=== PATIENT | male | born 1930 | race Caucasian/White ===

== ENCOUNTER 2018-07-30 12:35 | Inpatient (IN) | payer MEDICARE ==
[2018-07-30] MEDS ORDERED: Sodium Chloride 0.9% 1,000 ML IV STA ×3 (13:04→17:06)
--- NOTE | 2018-07-30 13:07 | ED PDOC ---
HPI: Male Pain Time Seen by Provider: 07/30/18 12:51 Chief Complaint (Nursing): Male Genitourinary History Per: Family Onset/Duration Of Symptoms: Days (2) Current Symptoms Are (Timing): Still Present Quality Of Discomfort: Unable To Describe Associated Symptoms: Fever Alleviating Factors: None Additional Complaint(s): Gross hematuria x 2 days assoc with fever. Pt denies c/o. Hx obtained from family. Pt denies abd pain vomiting, diarrhea, dysuria or back pain. Past Medical History Vital Signs: Last Vital Signs Temp 100.3 F H 07/30/18 12:49 Pulse 112 H 07/30/18 12:49 Resp 18 07/30/18 12:49 BP 134/61 07/30/18 12:49 Pulse Ox 99 07/30/18 12:49 - Medical History PMH: CVA, HTN - Family History Family History: States: Unknown Family Hx - Immunization History Hx Tetanus Toxoid Vaccination: No Hx Influenza Vaccination: No Hx Pneumococcal Vaccination: No - Home Medications Home Medications: Ambulatory Orders Medication Instructions Recorded Amlodipine Besylate 5 mg PO DAILY 09/09/13 Aspirin EC 81 mg PO DAILY 09/09/13 Ciprofloxacin [Cipro] 500 mg PO BID #20 tab 09/09/13 Pradaxa 150 mg PO BID 09/09/13 Simvastatin 20 mg PO DAILY 09/09/13 Tamsulosin Hydrochloride 0.4 mg PO DAILY 09/09/13 - Allergies Allergies/Adverse Reactions: Allergies Allergy/AdvReac Type Severity Reaction Status Date / Time No Known Allergies Allergy Unverified 09/09/13 16:19 Review of Systems ROS Statement: Except As Marked, All Systems Reviewed And Found Negative Constitutional: Positive for: Fever Genitourinary Male: Positive for: Hematuria Physical Exam - Reviewed Nursing Documentation Reviewed: Yes Vital Signs Reviewed: Yes - Physical Exam Appears: Positive for: Non-toxic, No Acute Distress Head Exam: Positive for: ATRAUMATIC, NORMAL INSPECTION, NORMOCEPHALIC Skin: Positive for: Normal Color, Warm, DRY Eye Exam: Positive for: EOMI, Normal appearance, PERRL ENT: Positive for: Normal ENT Inspection Neck: Positive for: Normal, Painless ROM Cardiovascular/Chest: Positive for: Regular Rate, Rhythm Respiratory: Positive for: CNT, Normal Breath Sounds Gastrointestinal/Abdominal: Positive for: Normal Exam, Soft. Negative for: Tenderness Back: Positive for: Normal Inspection. Negative for: L CVA Tenderness, R CVA Tenderness Extremity: Positive for: Normal ROM Neurologic/Psych: Positive for: Alert, Oriented, Motor/Sensory Deficits (right sided weakness upper ext old) - Laboratory Results Result Diagrams: 07/30/18 13:15 07/30/18 13:15 - ECG O2 Sat by Pulse Oximetry: 99 Disposition - Clinical Impression Clinical Impression: Pneumonia, Sepsis, Hematuria - Patient ED Disposition Is Patient to be Admitted: Yes - Disposition Disposition Time: 15:00 Condition: FAIR Forms: [employer] ([place]) - Pt Status Changed To: Hospital Disposition Of: Inpatient - Admit Certification Admit to Inpatient:: After my assessment, the patient will require hospitalization for at least two midnights. This is because of the severity of symptoms shown, intensity of services needed, and/or the medical risk in this patient being treated as an outpatient. - POA Present On Arrival: None
[2018-07-30 14:08] LABS: VENOUS BLOOD GAS BASE EXCESS -0.8 mmol/L (0.0-2.0); VENOUS BLOOD GAS PCO2 41 mmHg (40-60); VENOUS BLOOD GAS PO2 15 mm/Hg (30-55); VENOUS BLOOD PH 7.38 (7.32-7.43)
[2018-07-30 14:09] LABS: BASO % 0.1 % (0.0-2.0); HEMOGLOBIN 13.3 g/dL (12.0-18.0); LYMPH # 1.1 K/uL (1.0-4.3); LYMPH % 5.4 % (20.0-40.0); MEAN CELL VOLUME 104.1 fl (80.0-94.0); MEAN CORPUSCULAR HEMOGLOBIN 34.9 pg (27.0-31.0); MEAN CORPUSCULAR HGB CONC 33.5 g/dL (33.0-37.0); MEAN PLATELET VOLUME 7.9 fl (7.2-11.7); MONO # 1.8 K/uL (0.0-0.8); MONO % 8.4 % (0.0-10.0); NEUT # 18.1 K/uL (1.8-7.0); NEUT % 86.1 % (50.0-75.0); NRBC % 0.1 % (0.0-0.0); PLATELET COUNT 276 K/uL (130-400); RBC 3.81 Mil/uL (4.40-5.90); RED CELL DISTRIBUTION WIDTH 13.7 % (11.5-14.5); WHITE BLOOD COUNT 21.1 K/uL (4.8-10.8)
[2018-07-30 14:10] LABS: GRANULAR CAST 28 /lpf (0-1); SQUAMOUS EPITHIAL 2 /hpf (0-5); URINE AMORPHOUS SEDIMENT FEW /ul (<OCC); URINE BILIRUBIN NEGATIVE (NEGATIVE); URINE BLOOD LARGE (NEGATIVE); URINE CLARITY CLOUDY (Clear); URINE GLUCOSE (UA) NEG (Normal); URINE LEUKOCYTE ESTERASE NEG Leu/uL (Negative); URINE PROTEIN 100 mg/dL (NEGATIVE)
[2018-07-30 14:12] LABS: URINE COLOR YELLOW (YELLOW)
--- NOTE | 2018-07-30 14:26 | US ---
Date of service: 07/30/2018 PROCEDURE: Right lower extremity venous duplex Doppler. HISTORY: swelling right leg COMPARISON: None available. TECHNIQUE: Common femoral, superficial femoral, popliteal and posterior tibial veins were evaluated. Flow was assessed with color Doppler, compressibility, assessment of phasic flow and augmentation response. FINDINGS: COMMON FEMORAL VEIN: Unremarkable. SUPERFICIAL FEMORAL VEIN: Unremarkable. POPLITEAL VEIN: Unremarkable. POSTERIOR TIBIAL VEIN: Unremarkable. OTHER FINDINGS: None. IMPRESSION: No evidence of deep venous thrombosis in the right lower extremity.
[2018-07-30 14:28] LABS: ALB/GLOB RATIO 0.9 (1.0-2.1); ALBUMIN 4.2 g/dL (3.5-5.0); CALCIUM 9.3 mg/dL (8.4-10.2)
[2018-07-30] MEDS ORDERED: Piperacillin/Tazobact 3.375 GM in Sodium Chloride 0.9% 100 ML IVPB STA (14:39)
[2018-07-30] MEDS ORDERED: Vancomycin 1 g Inj ONE (14:46)
[2018-07-30] MEDS ORDERED: Piperacillin/Tazobact 3.375 gm Inj IVPB ONE (14:46)
--- NOTE | 2018-07-30 14:54 | CT ---
Date of service: 07/30/2018 PROCEDURE: CT Abdomen and Pelvis without intravenous contrast HISTORY: r/o kidney stone COMPARISON: None. TECHNIQUE: Contiguous images were obtained from the domes of the diaphragms to the upper thighs without the administration of intravenous contrast. Oral contrast was not administered. Radiation dose: Total exam DLP = 548.7 mGy-cm. This CT exam was performed using one or more of the following dose reduction techniques: Automated exposure control, adjustment of the mA and/or kV according to patient size, and/or use of iterative reconstruction technique. FINDINGS: LOWER THORAX: Coronary arterial and valvular calcifications. No focal consolidation or pleural effusion. LIVER: Unremarkable. No gross lesion or ductal dilatation. GALLBLADDER AND BILE DUCTS: Unremarkable. PANCREAS: Unremarkable. No gross lesion or ductal dilatation. SPLEEN: Lateral splenic margin calcifications. ADRENALS: Left adrenal nodular thickening. KIDNEYS AND URETERS: Right lower pole 4.2 cm cyst. No hydronephrosis. No solid mass. VASCULATURE: Unremarkable. No aortic aneurysm. BOWEL: Extensive colonic diverticulosis. Nonobstructive loop of colon extending into a left inguinal hernia. No obstruction. No gross mural thickening. APPENDIX: Unremarkable. Normal appendix. PERITONEUM: Large nonobstructive bowel containing left inguinal hernia. Small right fat containing inguinal hernia. No free fluid. No free air. LYMPH NODES: Unremarkable. No enlarged lymph nodes. BLADDER: Unremarkable. REPRODUCTIVE: Prostatomegaly. BONES: No acute fracture. OTHER FINDINGS: None. IMPRESSION: No obstructive uropathy or evidence of recently passed genitourinary calculus. Large left nonobstructive bowel containing inguinal hernia. Additional findings as above.
--- NOTE | 2018-07-30 15:00 | RAD ---
Date of service: 07/30/2018 HISTORY: sepsis COMPARISON: Chest radiograph dated 11/25/2009 TECHNIQUE: Chest PA and lateral FINDINGS: LUNGS: Right midlung opacity extending from the right hilar region to the lateral thoracic margin. PLEURA: No significant pleural effusion identified. No pneumothorax apparent. CARDIOVASCULAR: Atherosclerotic aortic calcifications. Cardiomediastinal silhouette stably enlarged OSSEOUS STRUCTURES: Unchanged. VISUALIZED UPPER ABDOMEN: Normal. OTHER FINDINGS: None. IMPRESSION: Right midlung opacity extending from the right hilum to the lateral thoracic wall. CT scan of the chest can be obtained for further evaluation as clinically warranted.
[2018-07-30 15:25] LABS: EOSINOPHIL 2 % (0-7); LYMPHOCYTE 4 % (20-50); MONOCYTE 5 % (0-10); NEUTROPHIL 89 % (42-75); PLATELET ESTIMATE NORMAL (NORMAL); TOTAL CELLS COUNTED 100
[2018-07-30 16:35] LABS: VENOUS BLOOD GAS BASE EXCESS -4.1 mmol/L (0.0-2.0); VENOUS BLOOD GAS PCO2 44 mmHg (40-60); VENOUS BLOOD GAS PO2 16 mm/Hg (30-55); VENOUS BLOOD PH 7.31 (7.32-7.43)
[2018-07-30 17:07] LABS: VENOUS BLOOD GAS BASE EXCESS -1.8 mmol/L (0.0-2.0); VENOUS BLOOD GAS PCO2 42 mmHg (40-60); VENOUS BLOOD GAS PO2 15 mm/Hg (30-55); VENOUS BLOOD PH 7.36 (7.32-7.43)
[2018-07-30] MEDS: Sodium Chloride 0.9% 1,000 ML IV SCH (21:00)
[2018-07-30] MEDS ORDERED: Ergocalciferol 50,000 Intl Units Cap PO SCH (21:00)
[2018-07-30] MEDS: Pravastatin Sodium 20 MG TAB PO SCH (22:19)
[2018-07-31] MEDS: Sodium Chloride 0.9% 1,000 ML IV SCH (15:40)
[2018-07-31] MEDS: Pravastatin Sodium 20 MG TAB PO SCH (22:28)
--- NOTE | 2018-08-01 05:30 | HP ---
HISTORY OF PRESENT ILLNESS: This is an 88-year-old male who was known to me, presented to emergency room with symptoms of generalized weakness, decreased oral intake, cough, and high fever. The patient was evaluated in the emergency room, and T-max was 102.4. The patient was found to have also right middle lobe pneumonia/right middle lobe consolidation. The patient was admitted to telemetry floor with diagnosis of sepsis. The patient was started on both vancomycin and Zosyn also on admission. The patient has left-sided hemiplegia. He lives with a friend, but he is able to ambulate. Other review of system is negative. ALLERGIES: NO KNOWN ALLERGIES. MEDICATIONS: As per MAR were reviewed. PAST MEDICAL HISTORY: CVA, hypertension, paroxysmal atrial fibrillation, benign prostatic hypertrophy. SOCIAL HISTORY: No history of smoking, EtOH, or substance abuse. FAMILY HISTORY: Noncontributory. PHYSICAL EXAMINATION: GENERAL: The patient was not in any cardiopulmonary distress. VITAL SIGNS: Blood pressure 137/55, temperature 102.4, respiratory rate 18, and pulse 70. HEENT: Pupils equal, reactive to light. Normal-appearing mucosa of the conjunctivae, oropharynx, and nasal membrane mucosa. NECK: Supple. No JVD. CHEST AND LUNGS: Bilateral symmetrical expansion. Good air exchange. No rales. No rhonchi. CARDIOVASCULAR SYSTEM: PMI not localized. S1, S2. No additional sounds. ABDOMEN: Normoactive bowel sounds. No tenderness. No organomegaly. No masses. EXTREMITIES: No cyanosis, no clubbing, no edema. CENTRAL NERVOUS SYSTEM: Alert, awake, oriented x2. The patient has right-sided hemiparesis. ASSESSMENT: Pneumonia, cerebrovascular accident, hypertension, benign prostatic hypertrophy, paroxysmal atrial fibrillation. PLAN: We will continue vancomycin and Zosyn. We will add also azithromycin. We will check CBC and CMP tomorrow morning. Physical therapy. Itzel Hernández MD
[2018-08-01 05:44] LABS: HEMOGLOBIN 12.3 g/dL (12.0-18.0); MEAN CELL VOLUME 103.2 fl (80.0-94.0); MEAN CORPUSCULAR HEMOGLOBIN 35.5 pg (27.0-31.0); MEAN CORPUSCULAR HGB CONC 34.4 g/dL (33.0-37.0); RBC 3.47 Mil/uL (4.40-5.90); RED CELL DISTRIBUTION WIDTH 13.9 % (11.5-14.5); WHITE BLOOD COUNT 12.1 K/uL (4.8-10.8)
[2018-08-01 06:13] LABS: ALB/GLOB RATIO 0.8 (1.0-2.1); ALBUMIN 3.3 g/dL (3.5-5.0); ALT/SGPT 53 U/L (21-72); AST/SGOT 83 U/L (17-59); BLOOD UREA NITROGEN 14 mg/dl (9-20); CALCIUM 8.1 mg/dL (8.4-10.2); GFR NON-AFRICAN AMERICAN 52
[2018-08-01] MEDS: Potassium Chloride 20 mEq ER Tab PO ONE ×2 (09:08→09:54)
[2018-08-01] MEDS ORDERED: Potassium Chloride 20 mEq/15 ml LIQ UD PO ONE (11:44)
[2018-08-01] MEDS: Megestrol Acetate 40 mg/ml Cup PO SCH (16:53)
[2018-08-01] MEDS: Pravastatin Sodium 20 MG TAB PO SCH (21:35)
[2018-08-01] MEDS: Azithromycin 500 MG in Sodium Chloride 0.9% 250 ML IVPB SCH (22:37)
[2018-08-02 05:57] LABS: HEMOGLOBIN 12.9 g/dL (12.0-18.0); MEAN CELL VOLUME 103.8 fl (80.0-94.0); MEAN CORPUSCULAR HEMOGLOBIN 35.4 pg (27.0-31.0); MEAN CORPUSCULAR HGB CONC 34.1 g/dL (33.0-37.0); RBC 3.65 Mil/uL (4.40-5.90); RED CELL DISTRIBUTION WIDTH 13.8 % (11.5-14.5); WHITE BLOOD COUNT 11.6 K/uL (4.8-10.8)
[2018-08-02] MEDS ORDERED: Azithromycin 500 MG in Sodium Chloride 0.9% 250 ML IVPB SCH (09:00)
[2018-08-02] MEDS: Azithromycin 500 MG in Sodium Chloride 0.9% 250 ML IVPB SCH (09:07)
[2018-08-02] MEDS: Megestrol Acetate 40 mg/ml Cup PO SCH ×2 (09:24→16:31)
--- NOTE | 2018-08-02 09:29 | CP.PCM.PCO ---
Assessment/Plan - Assessment/Plan Assessment (Free Text): Patient seen and examined at bedside, vital signs stable, tmax 100.5 Labs reviewed, wbc trending now Appetite fair, eating 50% of breakfast. Patient will need 5-7 more days of iv abx for Pneumonia on cxr and ecoli in urine. Will refer pt to tcu /cesar for continuation of treatment, iv abx and pt. Discussed with PT and SW, pt agreeable. - Problems Patient Problems: Problem List (Active/Current) Problem Status Onset Code Hematuria Acute R31.9 Pneumonia Acute J18.9 Sepsis Acute A41.9
--- NOTE | 2018-08-02 12:27 | PN ---
DATE: 08/01/2018 SUBJECTIVE: He was not in any cardiopulmonary distress. PHYSICAL EXAMINATION: VITAL SIGNS: The patient still has fever with a T-max of 102.7, blood pressure 120/76, respiratory rate 18, and pulse 75. HEENT: Pupil equal and reactive to light. Normal-appearing mucosa of the conjunctivae, oropharynx, and nasal membrane mucosa. NECK: Supple. No JVD. No carotid bruit. No lymph node. No thyromegaly. CHEST AND LUNGS: Bilateral symmetrical expansion. Good air exchange. No rales. No rhonchi. CARDIOVASCULAR SYSTEM: PMI not localized. S1 and S2. No additional sounds. ABDOMEN: Normoactive bowel sounds. No tenderness. No organomegaly. No masses. EXTREMITIES: No cyanosis. No clubbing. No edema. CENTRAL NERVOUS SYSTEM: The patient is alert, awake, oriented x2 and the patient has right-sided weakness and hemiplegia. ASSESSMENT: 1. Pneumonia, sepsis secondary to pneumonia. 2. Status post cerebrovascular accident. 3. Paroxysmal atrial fibrillation. 4. Hypertension. PLAN: We will add azithromycin to the current treatment of vancomycin and Zosyn and physical therapy. Itzel Hernández MD
[2018-08-02] MEDS ORDERED: Potassium Chloride 20 mEq ER Tab PO ONE (18:10)
[2018-08-02] MEDS ORDERED: Albuterol-Ipratrop 3 mg / 0.5 (3 ml) UD INH PRN (18:12)
[2018-08-02] MEDS: Pravastatin Sodium 20 MG TAB PO SCH (21:05)
--- NOTE | 2018-08-02 22:43 | PN ---
DATE: 08/02/2018 SUBJECTIVE: The patient is seen today, 08/02/2018. He is not in any cardiopulmonary distress, but the patient still has cough and some wheezing. OBJECTIVE: VITAL SIGNS: Blood pressure is 142/57, temperature 98.8, respiratory rate 18, and pulse 62. HEENT: Pupils equal and reactive to light. Normal-appearing mucosa of the conjunctivae, oropharynx, and nasal membrane mucosa. NECK: Supple. No JVD. No carotid bruit. No lymph node. No thyromegaly. CHEST AND LUNGS: Bilateral symmetrical expansion. Bilateral rhonchi scattered all over lung taylor, and decreased air entry right lower lung taylor. CARDIOVASCULAR SYSTEM: PMI not localized. S1, S2. No additional sounds. ABDOMEN: Normoactive bowel sounds. No tenderness. No organomegaly. No masses. EXTREMITIES: No cyanosis, no clubbing, no edema. 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 ASSESSMENT: Pneumonia, cerebrovascular accident with right-sided hemiparesis, paroxysmal atrial fibrillation, benign prostate hypertrophy. PLAN: Continue current medications and physical therapy, and we will give patient DuoNeb by nebulizer as well as we will do a CAT scan of the chest without contrast. Itzel Hernánedz MD
[2018-08-03 06:07] LABS: BLOOD UREA NITROGEN 11 mg/dl (9-20); CALCIUM 8.2 mg/dL (8.4-10.2); GFR NON-AFRICAN AMERICAN > 60
[2018-08-03] MEDS: Megestrol Acetate 40 mg/ml Cup PO SCH ×2 (10:21→17:07)
[2018-08-03] MEDS: Azithromycin 500 MG in Sodium Chloride 0.9% 250 ML IVPB SCH (10:23)
--- NOTE | 2018-08-03 11:15 | CT ---
Date of service: 08/02/2018 PROCEDURE: CT Chest without contrast HISTORY: pneumonia COMPARISON: None available. TECHNIQUE: Contiguous axial images were obtained through the chest without intravenous contrast enhancement. Sagittal and coronal reconstructions were performed. Radiation dose (DLP): 571.4 mGy-cm. This CT exam was performed using one or more of the following dose reduction techniques: Automated exposure control, adjustment of the mA and/or kV according to patient size, and/or use of iterative reconstruction technique. FINDINGS: LUNGS: Large right upper lobe consolidation. Visualized airway clear MEDIASTINUM: Unremarkable thoracic aorta. No aneurysm. Normal sized heart. Main pulmonary artery unremarkable. No vascular congestion. No lymphadenopathy. PLEURA: Small right and trace left pleural effusions. No pneumothorax. BONES: No fracture. Exaggerated thoracic kyphosis. Flowing ossification along the anterior longitudinal ligament. No destructive lesion. UPPER ABDOMEN: Right upper pole 3.4 x 3.9 cm cyst. OTHER FINDINGS: None. IMPRESSION: Large right upper lobe consolidation. Small right and trace left pleural effusions.
[2018-08-03] MEDS ORDERED: Potassium Chloride 20 mEq ER Tab PO ONE (16:55)
[2018-08-03] MEDS: Pravastatin Sodium 20 MG TAB PO SCH (21:13)
[2018-08-04] MEDS: Megestrol Acetate 40 mg/ml Cup PO SCH ×2 (08:50→17:58)
[2018-08-04] MEDS: Pravastatin Sodium 20 MG TAB PO SCH (21:07)
[2018-08-05] MEDS: Megestrol Acetate 40 mg/ml Cup PO SCH ×2 (08:58→16:43)
--- NOTE | 2018-08-05 11:56 | CP.PCM.CON ---
History of Present Illness - History of Present Illness History of Present Illness: Infectious Disease Consultation Note- asked to see this patient for pneumonia and help with antibiotic management. HPI- History obtained from the medical chart as patient is not good historian. Patient is a 88 year old male with pmh of CVA, BPH, paroxysmal A.Fib,who was admitted few days ago with weakness and poor oral intake and was found to have high fever on admission along with RML infiltrate on cxr and was started on IV zosyn and vanco as per the primary doc. I'm asked to evaluate because he was noted to have high wbc along with positive urine cx in addition and to help with antibiotic management. Review of Systems - Review of Systems Review of Systems: ROS- deniesa ny fever or chills, had some cough less now, denies any sob, denies arpit ehst pain, denies any diarrhea, denies any dysurea Past Patient History - Past Medical History & Family History Past Medical History?: Yes - Past Social History Smoking Status: Never Smoked - CARDIAC Hx Cardiac Disorders: Yes Hx Atrial Fibrillation: Yes Hx Cardia Arrhythmia: Yes Hx Hypercholesterolemia: Yes Hx Hypertension: Yes Hx Peripheral Edema: Yes (right leg swelling) - PULMONARY Hx Respiratory Disorders: No - NEUROLOGICAL Hx Neurological Disorder: Yes HX Cerebrovascular Accident: Yes (right sided weakness) - RENAL Hx Chronic Kidney Disease: No - ENDOCRINE/METABOLIC Hx Endocrine Disorders: No - HEMATOLOGICAL/ONCOLOGICAL Hx Blood Disorders: No - INTEGUMENTARY Other/Comment: dmitry legs dry scaly right leg swelling - MUSCULOSKELETAL/RHEUMATOLOGICAL Hx Falls: No Hx Unsteady Gait: Yes Other/Comment: cane at home - GASTROINTESTINAL Hx Gastrointestinal Disorders: No - GENITOURINARY/GYNECOLOGICAL Hx Prostate Problems: Yes - PSYCHIATRIC Hx Substance Use: No - SURGICAL HISTORY Hx Cataract Extraction: Yes (dmitry) - ANESTHESIA Hx Anesthesia: Yes Hx Anesthesia Reactions: No Hx Malignant Hyperthermia: No Meds Allergies/Adverse Reactions: Allergies Allergy/AdvReac Type Severity Reaction Status Date / Time No Known Allergies Allergy Unverified 09/09/13 16:19 - Medications Medications: Current Medications Acetaminophen (Tylenol 325mg Tab) 650 mg PO Q6 PRN PRN Reason: Fever >100.4 F Last Admin: 08/02/18 05:11 Dose: 650 mg Albuterol/Ipratropium (Duoneb 3 Mg/0.5 Mg (3 Ml) Ud) 3 ml INH RQ6 PRN PRN Reason: Shortness of Breath Amlodipine Besylate (Norvasc) 5 mg PO Q12 [facility] Last Admin: 08/05/18 08:57 Dose: 5 mg Aspirin (Ecotrin) 81 mg PO DAILY [facility] Last Admin: 08/05/18 08:56 Dose: 81 mg Dabigatran (Pradaxa) 150 mg PO Q12 [facility]; Protocol Last Admin: 08/05/18 08:57 Dose: 150 mg Ergocalciferol (Drisdol 50,000 Intl Units Cap) 1 cap PO MO [facility] Last Admin: 07/30/18 22:18 Dose: 1 cap Escitalopram Oxalate (Lexapro) 10 mg PO HS [facility] Last Admin: 08/04/18 21:06 Dose: 10 mg Piperacillin Sod/Tazobactam (Sod 2.25 gm/ Sodium Chloride) 100 mls @ 100 mls/hr IVPB Q6 [facility]; Protocol Last Admin: 08/05/18 09:05 Dose: 100 mls/hr Losartan Potassium (Cozaar) 100 mg PO DAILY [facility] Last Admin: 08/05/18 08:55 Dose: 100 mg Megestrol Acetate (Megace) 400 mg PO BID [facility] Last Admin: 08/05/18 08:58 Dose: 400 mg Pravastatin Sodium (Pravachol) 20 mg PO HS [facility] Last Admin: 08/04/18 21:07 Dose: 20 mg Tamsulosin HCl (Flomax) 0.4 mg PO DAILY [facility] Last Admin: 08/05/18 08:57 Dose: 0.4 mg Physical Exam - Constitutional Appears: No Acute Distress - Head Exam Head Exam: ATRAUMATIC - Eye Exam Eye Exam: EOMI - ENT Exam ENT Exam: Normal Oropharynx - Neck Exam Neck exam: Positive for: Full Rom - Respiratory Exam Respiratory Exam: NORMAL BREATHING PATTERN Additional comments: no crackles decreased breath sounds at right lower lung region no wheezing - Cardiovascular Exam Cardiovascular Exam: RRR, +S1, +S2 - GI/Abdominal Exam GI & Abdominal Exam: Normal Bowel Sounds, Soft Additional comments: NT, ND - Extremities Exam Extremities exam: Positive for: normal inspection - Neurological Exam Neurological exam: Alert, Oriented x3 Additional comments: sided weakness Results - Vital Signs Recent Vital Signs: Last Vital Signs Temp 98.1 F 08/05/18 08:17 Pulse 73 08/05/18 09:00 Resp 18 08/05/18 08:17 BP 148/66 08/05/18 08:57 Pulse Ox 99 08/05/18 08:17 - Labs Result Diagrams: 08/02/18 04:50 08/03/18 04:20 Labs: Laboratory Results - last 72 hr 08/02/18 08/03/18 14:20 04:20 Sodium 137 Potassium 3.4 L 3.5 L Chloride 108 H Carbon Dioxide 23 Anion Gap 10 BUN 11 Creatinine 0.9 Est GFR ( Amer) > 60 Est GFR (Non-Af Amer) > 60 Random Glucose 104 Calcium 8.2 L Microbiology 07/30/18 13:35 Blood-Venous Blood Culture - Final NO GROWTH AFTER 5 DAYS 07/30/18 13:35 Blood-Venous Gram Stain - Final TEST NOT PERFORMED 07/30/18 13:15 Blood-Venous Blood Culture - Final NO GROWTH AFTER 5 DAYS 07/30/18 13:15 Blood-Venous Gram Stain - Final TEST NOT PERFORMED 07/30/18 02:52 Urine,Random Urine Culture - Final Escherichia Coli Assessment & Plan (1) Pneumonia Status: Acute (2) Bacteriuria Status: Acute - Assessment and Plan (Free Text) Assessment: A/P- 88 year old male admitted with fever and found to have large right upper lobe consolidation on his admission chect CT .. he also has e.coli in urine cx . he has been on zosyn and vanco as per primary doc. UA- negative Urine cx- e.coli sens to zyn but not good MAX blood cx- neg x 2 leukocytosis has improved. plan- advise to start pt. on meropenem since it has broader coverage and better MAX of the e.coli in urine cx. d/c zosyn. can continue with empiric vanco. keep trough between 10-15. monitor aspiration precautions. check another wbc and CXR. check sputum cx. check another UA and urine cx. all labs and imaging reviewed. Thank you for allowing me to take part in the care of this patient.
--- NOTE | 2018-08-05 13:08 | CP.PCM.PN ---
Subjective - Date & Time of Evaluation Date of Evaluation: 08/05/18 Time of Evaluation: 11:10 - Subjective Subjective: Patient seen and examined. Denied SOB or any other complaint Objective - Vital Signs/Intake and Output Vital Signs (last 24 hours): Temp Pulse Resp BP Pulse Ox 98.6 F 68 20 130/62 100 08/05/18 12:33 08/05/18 12:33 08/05/18 12:33 08/05/18 12:33 08/05/18 12:33 - Medications Medications: Current Medications Acetaminophen (Tylenol 325mg Tab) 650 mg PO Q6 PRN PRN Reason: Fever >100.4 F Last Admin: 08/02/18 05:11 Dose: 650 mg Albuterol/Ipratropium (Duoneb 3 Mg/0.5 Mg (3 Ml) Ud) 3 ml INH RQ6 PRN PRN Reason: Shortness of Breath Amlodipine Besylate (Norvasc) 5 mg PO Q12 [facility] Last Admin: 08/05/18 08:57 Dose: 5 mg Aspirin (Ecotrin) 81 mg PO DAILY [facility] Last Admin: 08/05/18 08:56 Dose: 81 mg Dabigatran (Pradaxa) 150 mg PO Q12 [facility]; Protocol Last Admin: 08/05/18 08:57 Dose: 150 mg Ergocalciferol (Drisdol 50,000 Intl Units Cap) 1 cap PO MO [facility] Last Admin: 07/30/18 22:18 Dose: 1 cap Escitalopram Oxalate (Lexapro) 10 mg PO HS [facility] Last Admin: 08/04/18 21:06 Dose: 10 mg Piperacillin Sod/Tazobactam (Sod 2.25 gm/ Sodium Chloride) 100 mls @ 100 mls/hr IVPB Q6 [facility]; Protocol Last Admin: 08/05/18 09:05 Dose: 100 mls/hr Losartan Potassium (Cozaar) 100 mg PO DAILY [facility] Last Admin: 08/05/18 08:55 Dose: 100 mg Megestrol Acetate (Megace) 400 mg PO BID [facility] Last Admin: 08/05/18 08:58 Dose: 400 mg Pravastatin Sodium (Pravachol) 20 mg PO HS [facility] Last Admin: 08/04/18 21:07 Dose: 20 mg Tamsulosin HCl (Flomax) 0.4 mg PO DAILY [facility] Last Admin: 08/05/18 08:57 Dose: 0.4 mg - Labs Labs: 08/02/18 04:50 08/03/18 04:20 - Constitutional Appears: No Acute Distress - Head Exam Head Exam: ATRAUMATIC - Eye Exam Eye Exam: absent: Scleral icterus - ENT Exam ENT Exam: Mucous Membranes Moist - Neck Exam Neck Exam: absent: Meningismus - Respiratory Exam Respiratory Exam: absent: Rales, Rhonchi, Wheezes, Respiratory Distress - Cardiovascular Exam Cardiovascular Exam: REGULAR RHYTHM, +S1, +S2 - GI/Abdominal Exam GI & Abdominal Exam: Soft. absent: Tenderness - Rectal Exam Rectal Exam: Deferred - Neurological Exam Neurological Exam: Alert, Oriented x3 - Psychiatric Exam Psychiatric exam: Normal Affect - Skin Skin Exam: Dry, Intact Assessment and Plan - Assessment and Plan (Free Text) Assessment: 88 yo male with history of HTN, Paroxysmal AFib and CVA presented initially with hematuria and fever. Work ups showed UTI and RUL pneumonia. 1. UTI urine culture grew E coli continue Zosyn 2. Right Upper Lobe Pneumonia asymptomatic continue Zosyn ID consult with Dr Schmidt 3. HTN BP stable continue Amlodipine and Losartan 4. Afib presently in sinus with controlled rate continue Pradaxa
[2018-08-05] MEDS: Meropenem 500 MG in Sodium Chloride 0.9% 100 ML IVPB SCH (16:41)
[2018-08-05] MEDS: Pravastatin Sodium 20 MG TAB PO SCH (21:02)
[2018-08-06] MEDS: Meropenem 500 MG in Sodium Chloride 0.9% 100 ML IVPB SCH ×3 (00:03→17:23)
[2018-08-06] MEDS: Megestrol Acetate 40 mg/ml Cup PO SCH ×2 (09:23→17:23)
--- NOTE | 2018-08-06 13:49 | CP.PCM.PCO ---
Assessment & Plan - Assessment and Plan (Free Text) Assessment: patient will require 7 more day of IV abx Merrem 500mg iv q8 and Vancomycin 750 mg q12 x 1 week from admission to TCU pt. is agreeable to TCU keep vanco trough between 10-15. monitor aspiration precautions. f/u cbc, cmp cont. pt/ot
[2018-08-06 20:01] VITALS: BP 130/62; PULSE 70; RESP 20; TEMP 98; O2SAT 99
--- NOTE | 2018-08-07 02:51 | PN ---
DATE: 08/03/2018 SUBJECTIVE: The patient was seen on 08/03/2018. He was not in any cardiopulmonary distress, but he still has cough and right-sided rales in right and middle lung taylor. PHYSICAL EXAMINATION: VITAL SIGNS: Blood pressure 130/70, temperature 98.2, respiratory rate 18, and pulse 72. HEENT: Pupils equal and reactive to light. Normal-appearing mucosa of the conjunctivae, oropharynx, and nasal membrane mucosa. NECK: Supple. No JVD. No carotid bruit. No lymph nodes. No thyromegaly. CHEST AND LUNGS: Bilateral symmetrical expansion. Good air exchange. There are rales and rhonchi on the right side. CARDIOVASCULAR SYSTEM: PMI not localized. S1 and S2. No additional sounds. ABDOMEN: Normoactive bowel sounds. No tenderness. No organomegaly. No masses. EXTREMITIES: No cyanosis. No clubbing. No edema. CENTRAL NERVOUS SYSTEM: Alert, awake, oriented x2. There is a neurological deficit in the form of right-sided hemiplegia. ASSESSMENT AND PLAN: Sepsis, pneumonia, hypertension, paroxysmal atrial fibrillation. We will follow up the CAT scan, chest results that were done. Continue current medications. Itzel Hernández MD
--- NOTE | 2018-08-07 21:11 | DS ---
REASON FOR ADMISSION: This is an 88-year-old male with a history of multiple medical problems including CVA with right-sided hemiplegia, was admitted for sepsis secondary to pneumonia. COURSE OF HOSPITALIZATION: The patient was admitted to telemetry floor due to sepsis. The patient was started on IV fluids as well as IV antibiotics. The patient had an ID consult done by Dr. Schmidt. The patient remained with cough and a CAT scan of the chest showed a large consolidation in the right upper lobe. The patient was discharged to transitional care unit for further management with extended IV antibiotic therapy. FINAL DIAGNOSES: Sepsis, pneumonia, cerebrovascular accident with right-sided hemiplegia, hypertension, and paroxysmal atrial fibrillation. Itzel Hernández MD
== END 2018-08-06 20:30 | DRG 871 ==
LOC: H.ER 12:35 → H.ERHOLD 14:57 → H.TEL 17:37
PROVIDERS: ADMIT Internal Medicine; ATTEND Internal Medicine
DX: A41.9 Sepsis, unspecified organism (principal); J18.9 Pneumonia, unspecified organism; N39.0 Urinary tract infection, site not specified; I69.351 Hemiplegia and hemiparesis following cerebral infarction affecting right dominant side; I48.0 Paroxysmal atrial fibrillation; B96.20 Unspecified Escherichia coli [E. coli] as the cause of diseases classified elsewhere; R31.0 Gross hematuria; I10 Essential (primary) hypertension; N40.0 Benign prostatic hyperplasia without lower urinary tract symptoms; E78.00 Pure hypercholesterolemia, unspecified

== ENCOUNTER 2018-08-06 16:56 | Inpatient (IN) | payer MEDICARE ==
[2018-08-06] MEDS ORDERED: Albuterol-Ipratrop 3 mg / 0.5 (3 ml) UD INH PRN (22:09)
[2018-08-06] MEDS: Pravastatin Sodium 20 MG TAB PO SCH (22:44)
[2018-08-07] MEDS ORDERED: [UNRECOGNIZED DRUG - OTHER] IV SCH
[2018-08-07] MEDS ORDERED: SOD CHLORIDE IV SCH
[2018-08-07] MEDS ORDERED: VANCOMYCIN IV SCH
[2018-08-07] MEDS ORDERED: Patient's Own Med (Meropenem 500 Mg In Ns [Merrem Iv 500 Mg/Ns 50 Ml] 500 MG) IV SCH (01:00)
[2018-08-07] MEDS: Meropenem 500 MG in Sodium Chloride 0.9% 100 ML IVPB SCH ×3 (02:00→16:44)
[2018-08-07] MEDS: Megestrol Acetate 40 mg/ml Cup PO SCH ×2 (08:06→16:40)
[2018-08-07] MEDS: Pravastatin Sodium 20 MG TAB PO SCH (21:02)
[2018-08-08] MEDS: Meropenem 500 MG in Sodium Chloride 0.9% 100 ML IVPB SCH ×3 (00:59→17:36)
--- NOTE | 2018-08-08 02:03 | HP ---
HISTORY OF PRESENT ILLNESS: This is an 88-year-old male with history of multiple medical problems who was in acute care floor for pneumonia. The patient was on antibiotics. The patient has history of CVA with right-sided weakness. The patient was started on physical therapy and he was discharged to Transitional Care Unit for physical therapy, deconditioning, and to continue his IV antibiotic therapy. PAST MEDICAL HISTORY: CVA with right-sided weakness, hypertension, atrial fibrillation, and pneumonia. FAMILY HISTORY: Noncontributory. SOCIAL HISTORY: No history of smoking, EtOH, or substance abuse. REVIEW OF SYSTEMS: Other review of system is negative. ALLERGIES: NO KNOWN ALLERGY. MEDICATIONS: Were reviewed and ordered as per [facility]. PHYSICAL EXAMINATION: GENERAL: The patient is in bed, not in any cardiopulmonary distress. VITAL SIGNS: Blood pressure 137/80, temperature 98.2, respiratory rate 18, and pulse 72. HEENT: Pupils equal, reactive to light. Normal-appearing mucosa of the conjunctivae, oropharynx and nasal membrane mucosa. NECK: Supple. No JVD. No carotid bruit. No lymph node. No thyromegaly. CARDIOPULMONARY: Cardiovascular system, PMI not localized. S1, S2; irregularly irregular. CHEST AND LUNGS: Bilateral symmetrical expansion. Positive rales in the left upper and the right upper lobes, but there is no bronchial breathing. ABDOMEN: Normoactive bowel sounds. No tenderness. No organomegaly. No masses. EXTREMITIES: No cyanosis, no clubbing, no edema. ENVIRONMENTAL ENGINEER: Alert, awake, oriented x2. There is right-sided hemiparesis. ASSESSMENT: 1. Cerebrovascular accident with right-sided hemiparesis. 2. Atrial fibrillation with controlled ventricular rate. 3. Pneumonia. 4. Hypertension. PLAN: Continue current IV antibiotics, physical therapy, occupational therapy. Resume patient's home medications. Itzel Hernández MD
[2018-08-08] MEDS: Megestrol Acetate 40 mg/ml Cup PO SCH ×2 (08:48→17:37)
--- NOTE | 2018-08-08 09:42 | CP.PCM.CON ---
History of Present Illness - History of Present Illness History of Present Illness: Infectious Disease Consultation Note- Consult requested by . HPI- Patient known to me from his admission in tele floor few days ago. Patient is a 88 year old male with PMH of CVA, BPH, paroxysmal a.fib,who was initially admitted for weakness and poor oral intake and fever and was found to have RMl infiltrate and and e.coli in urine cx. pt. was started on Iv zosyn and vanco and has responded very well to this and ws d/c to TCU for physical therapy and to complete her antibiotic regimen. Pt. currently states he feels well and denies any complaints. Review of Systems - Review of Systems Review of Systems: ROS- denies any fever or chills, denies any VALVERDE, denies any cough, denies any sob, denies any chest pain, denies any abd. pain, denies any nausea or vomiting, denies any diarrhea, denies any dysurea. Past Patient History - Past Medical History & Family History Past Medical History?: Yes - Past Social History Smoking Status: Never Smoked Alcohol: None Drugs: Denies - CARDIAC Hx Cardiac Disorders: Yes Hx Atrial Fibrillation: Yes Hx Cardia Arrhythmia: Yes Hx Hypercholesterolemia: Yes Hx Hypertension: Yes - PULMONARY Hx Respiratory Disorders: No - NEUROLOGICAL Hx Neurological Disorder: Yes HX Cerebrovascular Accident: Yes (right sided weakness) - HEENT Hx Cataracts: Yes - RENAL Hx Chronic Kidney Disease: No - ENDOCRINE/METABOLIC Hx Endocrine Disorders: No - HEMATOLOGICAL/ONCOLOGICAL Hx Blood Disorders: No - INTEGUMENTARY Other/Comment: dmitry legs dry scaly right leg swelling - MUSCULOSKELETAL/RHEUMATOLOGICAL Hx Falls: No Hx Unsteady Gait: Yes Other/Comment: cane at home - GASTROINTESTINAL Hx Gastrointestinal Disorders: No - GENITOURINARY/GYNECOLOGICAL Hx Prostate Problems: Yes - PSYCHIATRIC Hx Substance Use: No - SURGICAL HISTORY Hx Cataract Extraction: Yes (dmitry) - ANESTHESIA Hx Anesthesia: Yes Hx Anesthesia Reactions: No Hx Malignant Hyperthermia: No Meds Allergies/Adverse Reactions: Allergies Allergy/AdvReac Type Severity Reaction Status Date / Time No Known Allergies Allergy Unverified 09/09/13 16:19 - Medications Medications: Current Medications Acetaminophen (Tylenol 325mg Tab) 650 mg PO Q6 PRN PRN Reason: Fever >100.4 F Albuterol/Ipratropium (Duoneb 3 Mg/0.5 Mg (3 Ml) Ud) 3 ml INH RQ6 PRN PRN Reason: Shortness of Breath Amlodipine Besylate (Norvasc) 5 mg PO Q12 [facility] Last Admin: 08/08/18 08:49 Dose: 5 mg Aspirin (Ecotrin) 81 mg PO DAILY [facility] Last Admin: 08/08/18 08:56 Dose: 81 mg Dabigatran (Pradaxa) 150 mg PO Q12 [facility]; Protocol Last Admin: 08/08/18 08:48 Dose: 150 mg Escitalopram Oxalate (Lexapro) 10 mg PO [facility] Last Admin: 08/07/18 21:01 Dose: 10 mg Meropenem 500 mg/ Sodium (Chloride) 100 mls @ 100 mls/hr IVPB Q8 [facility] Last Admin: 08/08/18 08:54 Dose: 100 mls/hr Vancomycin HCl 750 mg/ Sodium (Chloride) 250 mls @ 250 mls/hr IVPB Q12@0000,1200 [facility] Last Admin: 08/07/18 23:02 Dose: 250 mls/hr Losartan Potassium (Cozaar) 100 mg PO DAILY [facility] Last Admin: 08/08/18 08:58 Dose: 100 mg Megestrol Acetate (Megace) 400 mg PO BID [facility] Last Admin: 08/08/18 08:48 Dose: 400 mg Pravastatin Sodium (Pravachol) 20 mg PO [facility] Last Admin: 08/07/18 21:02 Dose: 20 mg Tamsulosin HCl (Flomax) 0.4 mg PO DAILY [facility] Last Admin: 08/08/18 08:57 Dose: 0.4 mg Physical Exam - Constitutional Appears: Non-toxic, No Acute Distress - Head Exam Head Exam: ATRAUMATIC - Eye Exam Eye Exam: EOMI, PERRL - ENT Exam ENT Exam: Normal Oropharynx - Neck Exam Neck exam: Positive for: Full Rom - Respiratory Exam Respiratory Exam: NORMAL BREATHING PATTERN Additional comments: good breath sounds b/l no wheezing - Cardiovascular Exam Cardiovascular Exam: REGULAR RHYTHM, +S1, +S2 - GI/Abdominal Exam GI & Abdominal Exam: Normal Bowel Sounds, Soft Additional comments: NT, ND no CVA tenderness b/l - Extremities Exam Extremities exam: Positive for: normal inspection - Neurological Exam Neurological exam: Alert, Oriented x3 Results - Vital Signs Recent Vital Signs: Last Vital Signs Temp 97.9 F 08/08/18 08:09 Pulse 80 08/08/18 08:58 Resp 18 08/08/18 08:09 BP 128/56 L 08/08/18 08:58 Pulse Ox 98 08/08/18 08:09 - Labs Labs: Microbiology 07/30/18 13:35 Blood-Venous Blood Culture - Final 07/30/18 13:35 Blood-Venous Gram Stain - Final NO GROWTH AFTER 5 DAYS TEST NOT PERFORMED 07/30/18 13:15 Blood-Venous Blood Culture - Final 07/30/18 13:15 Blood-Venous Gram Stain - Final NO GROWTH AFTER 5 DAYS TEST NOT PERFORMED 07/30/18 02:52 Urine,Random Urine Culture - Final Escherichia Coli Assessment & Plan (1) Bacteriuria Status: Acute (2) Pneumonia Status: Acute - Assessment and Plan (Free Text) Assessment: A/P- 88 year old male was admitted with fever and found to have large right upper lobe consolidation on his admission chect CT and e.coli in urine cx. was improved and d/c to TCU for PT and completion of his antibiotic therpay as per pcp. clinically much improved. has remained afebrile UA- negative Urine cx- e.coli sens to zyn but not good MAX blood cx- neg x 2 leukocytosis almost resolved. plan- has been on Iv meropnem for pneumonia and e.coli in urine cx for past 4 days. advise 1 more day of Iv meropenem. d/c IV vancomycin at this time. monitor aspiration precautions. check another wbc and CXR. Thank you for allowing me to take part in the care of this patient.
[2018-08-08 13:01] VITALS: BMI 24.9
[2018-08-08] MEDS: Pravastatin Sodium 20 MG TAB PO SCH (21:07)
[2018-08-09] MEDS: Meropenem 500 MG in Sodium Chloride 0.9% 100 ML IVPB SCH ×3 (00:31→17:26)
[2018-08-09 06:26] LABS: BASO % 0.2 % (0.0-2.0); EOS # 0.1 K/uL (0.0-0.7); EOS % 0.8 % (0.0-4.0); HEMOGLOBIN 11.5 g/dL (12.0-18.0); LYMPH # 1.6 K/uL (1.0-4.3); LYMPH % 13.4 % (20.0-40.0); MEAN CELL VOLUME 102.8 fl (80.0-94.0); MEAN CORPUSCULAR HEMOGLOBIN 34.5 pg (27.0-31.0); MEAN CORPUSCULAR HGB CONC 33.5 g/dL (33.0-37.0); MEAN PLATELET VOLUME 6.2 fl (7.2-11.7); MONO # 0.8 K/uL (0.0-0.8); MONO % 6.9 % (0.0-10.0); NEUT # 9.5 K/uL (1.8-7.0); NEUT % 78.7 % (50.0-75.0); RBC 3.34 Mil/uL (4.40-5.90); WHITE BLOOD COUNT 12.1 K/uL (4.8-10.8)
--- NOTE | 2018-08-09 08:28 | PN ---
DATE: 08/08/2018 DAILY PROGRESS NOTE SUBJECTIVE: The patient is seen today, 08/08/2018. He is not in any cardiopulmonary distress. PHYSICAL EXAMINATION: VITAL SIGNS: Blood pressure 128/62, temperature 97, respiratory rate 20, and pulse 57. HEENT: Pupils are reactive to light. Normal-appearing mucosa of the conjunctivae, oropharynx, and nasal membrane mucosa. NECK: Supple. No JVD. No carotid bruit. No lymph node. No thyromegaly. CHEST AND LUNGS: Bilateral symmetrical expansion. Good air exchange. No rales. No rhonchi. CARDIOVASCULAR SYSTEM: PMI not localized. S1, S2. No additional sounds. ABDOMEN: Normoactive bowel sounds. No tenderness. No organomegaly. No masses. EXTREMITIES: No cyanosis, no clubbing, no edema. CENTRAL NERVOUS SYSTEM: Alert, awake, oriented x2. Right-sided hemiparesis. ASSESSMENT: 1. Pneumonia. 2. Atrial fibrillation. 3. Cerebrovascular accident with right-sided hemiparesis. 4. Symptomatic peripheral vascular disease. Arterial Doppler showed occlusive disease on the left lower extremity. PLAN: We will do vascular surgery consult. Continue current medications. The arterial Doppler shows left lower extremity occlusive disease affecting mid and distal left superficial femoral artery, flow is identified in the left posterior tibial and anterior tibial arteries as well as dorsalis pedis artery. Plan vascular surgery consult. Continue current medications including the anticoagulant. Continue physical therapy and occupational therapy. Itzel Hernández MD
[2018-08-09] MEDS: Megestrol Acetate 40 mg/ml Cup PO SCH ×2 (09:14→17:26)
--- NOTE | 2018-08-09 09:59 | RAD ---
Date of service: 08/09/2018 PROCEDURE: CHEST RADIOGRAPH, 1 VIEW HISTORY: follow up of his pneumonia COMPARISON: None available. FINDINGS: LUNGS: Partial clearing right upper lobe pneumonia. Follow-up to clearing advised. No new infiltrate elsewhere. PLEURA: No pneumothorax or pleural fluid seen. CARDIOVASCULAR: Normal. OSSEOUS STRUCTURES: No significant abnormalities. VISUALIZED UPPER ABDOMEN: Normal. OTHER FINDINGS: None. IMPRESSION: Incomplete clearing right upper lobe pneumonia. Follow-up to clearing advised.
--- NOTE | 2018-08-09 10:22 | CP.PCM.PN ---
Subjective - Date & Time of Evaluation Date of Evaluation: 08/09/18 Time of Evaluation: 10:22 Objective - Vital Signs/Intake and Output Vital Signs (last 24 hours): Temp Pulse Resp BP Pulse Ox 97.0 F L 61 20 130/48 L 99 08/08/18 21:02 08/09/18 09:15 08/08/18 21:02 08/09/18 09:15 08/08/18 21:02 - Medications Medications: Current Medications Acetaminophen (Tylenol 325mg Tab) 650 mg PO Q6 PRN PRN Reason: Fever >100.4 F Albuterol/Ipratropium (Duoneb 3 Mg/0.5 Mg (3 Ml) Ud) 3 ml INH RQ6 PRN PRN Reason: Shortness of Breath Amlodipine Besylate (Norvasc) 5 mg PO Q12 [facility] Last Admin: 08/09/18 09:15 Dose: 5 mg Aspirin (Ecotrin) 81 mg PO DAILY [facility] Last Admin: 08/09/18 09:16 Dose: 81 mg Dabigatran (Pradaxa) 150 mg PO Q12 [facility]; Protocol Last Admin: 08/09/18 09:14 Dose: 150 mg Escitalopram Oxalate (Lexapro) 10 mg PO HS [facility] Last Admin: 08/08/18 21:06 Dose: 10 mg Meropenem 500 mg/ Sodium (Chloride) 100 mls @ 100 mls/hr IVPB Q8 [facility] Last Admin: 08/09/18 09:48 Dose: 100 mls/hr Losartan Potassium (Cozaar) 100 mg PO DAILY [facility] Last Admin: 08/09/18 09:15 Dose: 100 mg Megestrol Acetate (Megace) 400 mg PO BID [facility] Last Admin: 08/09/18 09:14 Dose: 400 mg Pravastatin Sodium (Pravachol) 20 mg PO HS [facility] Last Admin: 08/08/18 21:07 Dose: 20 mg Tamsulosin HCl (Flomax) 0.4 mg PO DAILY [facility] Last Admin: 08/09/18 09:16 Dose: 0.4 mg - Labs Labs: 08/09/18 06:00
--- NOTE | 2018-08-09 10:24 | CP.PCM.CON ---
History of Present Illness - History of Present Illness History of Present Illness: This 88 year old male patient presented to the emergency department with fever and hematuria, found to have E coli UTI/sepsis. Coincidental finding on CXR of a right mid-lung infiltrate, CT scan verifies a RUL consolidation with air-br onchograms. He was placed on antibiotics and improved allowing discharge to transitional care. The patient is pleasant and cooperative during the examination but answers 'no' to every question resulting in the need to obtain current history from the medical record. Past Patient History - Past Medical History & Family History Past Medical History?: Yes - Past Social History Smoking Status: Never Smoked Alcohol: None Drugs: Denies - CARDIAC Hx Cardiac Disorders: Yes Hx Atrial Fibrillation: Yes Hx Cardia Arrhythmia: Yes Hx Hypercholesterolemia: Yes Hx Hypertension: Yes - PULMONARY Hx Respiratory Disorders: No - NEUROLOGICAL Hx Neurological Disorder: Yes HX Cerebrovascular Accident: Yes (right sided weakness) - HEENT Hx Cataracts: Yes - RENAL Hx Chronic Kidney Disease: No - ENDOCRINE/METABOLIC Hx Endocrine Disorders: No - HEMATOLOGICAL/ONCOLOGICAL Hx Blood Disorders: No - INTEGUMENTARY Other/Comment: dmitry legs dry scaly right leg swelling - MUSCULOSKELETAL/RHEUMATOLOGICAL Hx Falls: No Hx Unsteady Gait: Yes Other/Comment: cane at home - GASTROINTESTINAL Hx Gastrointestinal Disorders: No - GENITOURINARY/GYNECOLOGICAL Hx Prostate Problems: Yes - PSYCHIATRIC Hx Substance Use: No - SURGICAL HISTORY Hx Cataract Extraction: Yes (dmitry) - ANESTHESIA Hx Anesthesia: Yes Hx Anesthesia Reactions: No Hx Malignant Hyperthermia: No Meds Allergies/Adverse Reactions: Allergies Allergy/AdvReac Type Severity Reaction Status Date / Time No Known Allergies Allergy Unverified 09/09/13 16:19 - Medications Medications: Current Medications Acetaminophen (Tylenol 325mg Tab) 650 mg PO Q6 PRN PRN Reason: Fever >100.4 F Albuterol/Ipratropium (Duoneb 3 Mg/0.5 Mg (3 Ml) Ud) 3 ml INH RQ6 PRN PRN Reason: Shortness of Breath Amlodipine Besylate (Norvasc) 5 mg PO Q12 [facility] Last Admin: 08/09/18 09:15 Dose: 5 mg Aspirin (Ecotrin) 81 mg PO DAILY [facility] Last Admin: 08/09/18 09:16 Dose: 81 mg Dabigatran (Pradaxa) 150 mg PO Q12 [facility]; Protocol Last Admin: 08/09/18 09:14 Dose: 150 mg Escitalopram Oxalate (Lexapro) 10 mg PO HS [facility] Last Admin: 08/08/18 21:06 Dose: 10 mg Meropenem 500 mg/ Sodium (Chloride) 100 mls @ 100 mls/hr IVPB Q8 [facility] Last Admin: 08/09/18 09:48 Dose: 100 mls/hr Losartan Potassium (Cozaar) 100 mg PO DAILY [facility] Last Admin: 08/09/18 09:15 Dose: 100 mg Megestrol Acetate (Megace) 400 mg PO BID [facility] Last Admin: 08/09/18 09:14 Dose: 400 mg Pravastatin Sodium (Pravachol) 20 mg PO HS [facility] Last Admin: 08/08/18 21:07 Dose: 20 mg Tamsulosin HCl (Flomax) 0.4 mg PO DAILY [facility] Last Admin: 08/09/18 09:16 Dose: 0.4 mg Results - Vital Signs Recent Vital Signs: Last Vital Signs Temp 97.0 F L 08/08/18 21:02 Pulse 61 08/09/18 09:15 Resp 20 08/08/18 21:02 BP 130/48 L 08/09/18 09:15 Pulse Ox 99 08/08/18 21:02 - Labs Result Diagrams: 08/09/18 06:00 Labs: Laboratory Results - last 24 hr 08/09/18 06:00 WBC 12.1 H RBC 3.34 L Hgb 11.5 L Hct 34.3 L MCV 102.8 H MCH 34.5 H MCHC 33.5 RDW 14.0 Plt Count 794 H D MPV 6.2 L Neut % (Auto) 78.7 H Lymph % (Auto) 13.4 L [place] % (Auto) 6.9 Eos % (Auto) 0.8 Baso % (Auto) 0.2 Neut # (Auto) 9.5 H Lymph # (Auto) 1.6 [place] # (Auto) 0.8 Eos # (Auto) 0.1 Baso # (Auto) 0.0 Assessment & Plan (1) UTI (urinary tract infection) Status: Acute Priority: High (2) Pneumonia Status: Acute Priority: High - Date & Time Date: 08/09/18 Time: 10:24
[2018-08-09] MEDS: Pravastatin Sodium 20 MG TAB PO SCH (22:14)
[2018-08-10] MEDS: Meropenem 500 MG in Sodium Chloride 0.9% 100 ML IVPB SCH ×3 (01:16→16:38)
[2018-08-10] MEDS: Megestrol Acetate 40 mg/ml Cup PO SCH ×2 (08:11→16:38)
--- NOTE | 2018-08-10 08:16 | CP.PCM.CON ---
History of Present Illness - History of Present Illness History of Present Illness: This is a 88 yrs old male who came to the Er with c/o fever and hematuria. He has a past h/o CVA, BPH. he was found to have E Coli in the urine and chest Xray showed an infiltrate in the left upper lobe. He was started on antibiotics and is doing very well. On admission, his platelets were 276K. Last cbc done yesterday showed the platelets to be 794K. No fever at this time. No past h/o high platelet counts. Past Patient History - Past Medical History & Family History Past Medical History?: Yes - Past Social History Smoking Status: Never Smoked Alcohol: None Drugs: Denies - CARDIAC Hx Cardiac Disorders: Yes Hx Atrial Fibrillation: Yes Hx Cardia Arrhythmia: Yes Hx Hypercholesterolemia: Yes Hx Hypertension: Yes - PULMONARY Hx Respiratory Disorders: No - NEUROLOGICAL Hx Neurological Disorder: Yes HX Cerebrovascular Accident: Yes (right sided weakness) - HEENT Hx Cataracts: Yes - RENAL Hx Chronic Kidney Disease: No - ENDOCRINE/METABOLIC Hx Endocrine Disorders: No - HEMATOLOGICAL/ONCOLOGICAL Hx Blood Disorders: No - INTEGUMENTARY Other/Comment: dmitry legs dry scaly right leg swelling - MUSCULOSKELETAL/RHEUMATOLOGICAL Hx Falls: No Hx Unsteady Gait: Yes Other/Comment: cane at home - GASTROINTESTINAL Hx Gastrointestinal Disorders: No - GENITOURINARY/GYNECOLOGICAL Hx Prostate Problems: Yes - PSYCHIATRIC Hx Substance Use: No - SURGICAL HISTORY Hx Cataract Extraction: Yes (dmitry) - ANESTHESIA Hx Anesthesia: Yes Hx Anesthesia Reactions: No Hx Malignant Hyperthermia: No Meds Allergies/Adverse Reactions: Allergies Allergy/AdvReac Type Severity Reaction Status Date / Time No Known Allergies Allergy Unverified 09/09/13 16:19 - Medications Medications: Current Medications Acetaminophen (Tylenol 325mg Tab) 650 mg PO Q6 PRN PRN Reason: Fever >100.4 F Albuterol/Ipratropium (Duoneb 3 Mg/0.5 Mg (3 Ml) Ud) 3 ml INH RQ6 PRN PRN Reason: Shortness of Breath Amlodipine Besylate (Norvasc) 5 mg PO Q12 [facility] Last Admin: 08/10/18 08:10 Dose: 5 mg Aspirin (Ecotrin) 81 mg PO DAILY [facility] Last Admin: 08/10/18 08:09 Dose: 81 mg Dabigatran (Pradaxa) 150 mg PO Q12 [facility]; Protocol Last Admin: 08/10/18 08:09 Dose: 150 mg Escitalopram Oxalate (Lexapro) 10 mg PO HS [facility] Last Admin: 08/09/18 22:15 Dose: 10 mg Hydroxyurea (Hydrea) 500 mg PO DAILY [facility] Last Admin: 08/10/18 08:09 Dose: 500 mg Meropenem 500 mg/ Sodium (Chloride) 100 mls @ 100 mls/hr IVPB Q8 [facility] Last Admin: 08/10/18 08:07 Dose: 100 mls/hr Losartan Potassium (Cozaar) 100 mg PO DAILY [facility] Last Admin: 08/10/18 08:10 Dose: 100 mg Megestrol Acetate (Megace) 400 mg PO BID [facility] Last Admin: 08/10/18 08:11 Dose: 400 mg Pravastatin Sodium (Pravachol) 20 mg PO HS [facility] Last Admin: 08/09/18 22:14 Dose: 20 mg Tamsulosin HCl (Flomax) 0.4 mg PO DAILY [facility] Last Admin: 08/10/18 08:09 Dose: 0.4 mg Physical Exam - Additional Findings Additional findings: Physical exam; alert well oriented in no acute distress neck; Supple, no adenopathy Chest; air entry good no rales or rhonchi Heart; RSR, no murmur Abd; Soft, no mass no h/s megaly Results - Vital Signs Recent Vital Signs: Last Vital Signs Temp 97.7 F 08/10/18 07:47 Pulse 60 08/10/18 08:10 Resp 20 08/10/18 07:47 BP 137/56 L 08/10/18 08:10 Pulse Ox 98 08/10/18 07:47 - Labs Result Diagrams: 08/09/18 06:00 Assessment & Plan - Assessment and Plan (Free Text) Assessment: Impression; Reactive thrombocytosis Pneumonia UTI H/O CVA Plan: Plan; Because of his past history of CVA I will give the patient Hydroxyurea until the platelet count decreases to below 500K. will onitor CBC
--- NOTE | 2018-08-10 09:11 | CP.PCM.PN ---
Subjective - Date & Time of Evaluation Date of Evaluation: 08/10/18 Time of Evaluation: 09:11 - Subjective Subjective: ID note- no new events denies any complaints. Objective - Vital Signs/Intake and Output Vital Signs (last 24 hours): Temp Pulse Resp BP Pulse Ox 97.7 F 60 20 137/56 L 98 08/10/18 07:47 08/10/18 08:10 08/10/18 07:47 08/10/18 08:10 08/10/18 07:47 - Medications Medications: Current Medications Acetaminophen (Tylenol 325mg Tab) 650 mg PO Q6 PRN PRN Reason: Fever >100.4 F Albuterol/Ipratropium (Duoneb 3 Mg/0.5 Mg (3 Ml) Ud) 3 ml INH RQ6 PRN PRN Reason: Shortness of Breath Amlodipine Besylate (Norvasc) 5 mg PO Q12 [facility] Last Admin: 08/10/18 08:10 Dose: 5 mg Aspirin (Ecotrin) 81 mg PO DAILY [facility] Last Admin: 08/10/18 08:09 Dose: 81 mg Dabigatran (Pradaxa) 150 mg PO Q12 [facility]; Protocol Last Admin: 08/10/18 08:09 Dose: 150 mg Escitalopram Oxalate (Lexapro) 10 mg PO HS [facility] Last Admin: 08/09/18 22:15 Dose: 10 mg Hydroxyurea (Hydrea) 500 mg PO DAILY [facility] Last Admin: 08/10/18 08:09 Dose: 500 mg Meropenem 500 mg/ Sodium (Chloride) 100 mls @ 100 mls/hr IVPB Q8 [facility] Last Admin: 08/10/18 08:07 Dose: 100 mls/hr Losartan Potassium (Cozaar) 100 mg PO DAILY [facility] Last Admin: 08/10/18 08:10 Dose: 100 mg Megestrol Acetate (Megace) 400 mg PO BID [facility] Last Admin: 08/10/18 08:11 Dose: 400 mg Pravastatin Sodium (Pravachol) 20 mg PO HS [facility] Last Admin: 08/09/18 22:14 Dose: 20 mg Tamsulosin HCl (Flomax) 0.4 mg PO DAILY [facility] Last Admin: 08/10/18 08:09 Dose: 0.4 mg - Labs Labs: - Additional Findings Additional findings: - Constitutional Appears: Non-toxic, No Acute Distress - Head Exam Head Exam: ATRAUMATIC - Eye Exam Eye Exam: EOMI, PERRL - ENT Exam ENT Exam: Normal Oropharynx - Neck Exam Neck exam: Positive for: Full Rom - Respiratory Exam Respiratory Exam: NORMAL BREATHING PATTERN Additional comments: good breath sounds b/l no wheezing - Cardiovascular Exam Cardiovascular Exam: REGULAR RHYTHM, +S1, +S2 - GI/Abdominal Exam GI & Abdominal Exam: Normal Bowel Sounds, Soft Additional comments: NT, ND no CVA tenderness b/l - Extremities Exam Extremities exam: Positive for: normal inspection - Neurological Exam Neurological exam: Alert, Oriented x 3 Laboratory Results - last 72 hr 08/09/18 06:00 WBC 12.1 H RBC 3.34 L Hgb 11.5 L Hct 34.3 L MCV 102.8 H MCH 34.5 H MCHC 33.5 RDW 14.0 Plt Count 794 H D MPV 6.2 L Neut % (Auto) 78.7 H Lymph % (Auto) 13.4 L [place] % (Auto) 6.9 Eos % (Auto) 0.8 Baso % (Auto) 0.2 Neut # (Auto) 9.5 H Lymph # (Auto) 1.6 [place] # (Auto) 0.8 Eos # (Auto) 0.1 Baso # (Auto) 0.0 Assessment and Plan (1) Bacteriuria Status: Acute (2) Pneumonia Status: Acute - Assessment and Plan (Free Text) Assessment: A/P- 88 year old male was admitted with fever and found to have large right upper lo be consolidation on his admission chect CT and e.coli in urine cx. was improved and d/c to TCU for PT and completion of his antibiotic therpay as per pcp. clinically much improved. minimal rise in wbc and rise in platelets ( reactive thrombocytosis most likely) has remained afebrile UA- negative Urine cx- e.coli sens to zyn but not good MAX blood cx- neg x 2 CXR- incomplete clearing of RUL pna as per report. plan- has been on Iv meropnem for pneumonia and e.coli in urine cx for past 5 days. advise 2more day of Iv meropenem. monitor aspiration precautions. monitor wbc and platelets.
--- NOTE | 2018-08-10 14:50 | PN ---
DATE: 08/10/2018 SUBJECTIVE: The patient is seen today, 08/10/2018. PHYSICAL EXAMINATION: GENERAL: He is not in any cardiopulmonary distress. VITAL SIGNS: Blood pressure 137/56, temperature 97.7, respiratory rate 20, and pulse 60. HEENT: Pupils equal, reactive to light. Normal appearing mucosa of the conjunctivae, oropharynx, and nasal membrane mucosa. NECK: Supple. No JVD. No carotid bruit. No lymph node. No thyromegaly. CHEST AND LUNGS: Bilateral symmetrical expansion. Good air exchange. No rales, no rhonchi. CARDIOVASCULAR SYSTEM: PMI not localized. S1, S2. No additional sounds. ABDOMEN: Normoactive bowel sounds. No tenderness. No organomegaly. No masses. EXTREMITIES: No cyanosis. No clubbing. No edema. MARINE EXTENSION AGENT: Alert, awake, oriented x2. Left-sided hemiparesis. ASSESSMENT: Pneumonia; cerebrovascular accident with left-sided hemiparesis, which was present on admission; peripheral vascular disease; thrombocytosis, which is likely reactive. PLAN: 1. Vascular Surgery consult and follow recommendations. 2. Hematology consult. 3. Infectious Disease and Pulmonary consult. 4. Continue current medications. Itzel Hernández MD
[2018-08-10] MEDS: Pravastatin Sodium 20 MG TAB PO SCH (22:02)
[2018-08-11] MEDS: Meropenem 500 MG in Sodium Chloride 0.9% 100 ML IVPB SCH ×3 (00:33→16:05)
[2018-08-11] MEDS: Megestrol Acetate 40 mg/ml Cup PO SCH ×2 (08:05→16:06)
--- NOTE | 2018-08-11 10:01 | CP.PCM.PN ---
Subjective - Date & Time of Evaluation Date of Evaluation: 08/11/18 Time of Evaluation: 09:59 - Subjective Subjective: Pt is doing well. no fever or shortness of breath. Will repeat a cbc on Monday to evaluate the platelet count Objective - Vital Signs/Intake and Output Vital Signs (last 24 hours): Temp Pulse Resp BP Pulse Ox 98.1 F 63 20 130/50 L 98 08/11/18 08:43 08/11/18 08:43 08/11/18 08:43 08/11/18 08:43 08/11/18 08:43 - Medications Medications: Current Medications Acetaminophen (Tylenol 325mg Tab) 650 mg PO Q6 PRN PRN Reason: Fever >100.4 F Albuterol/Ipratropium (Duoneb 3 Mg/0.5 Mg (3 Ml) Ud) 3 ml INH RQ6 PRN PRN Reason: Shortness of Breath Amlodipine Besylate (Norvasc) 5 mg PO Q12 [facility] Last Admin: 08/11/18 08:05 Dose: 5 mg Aspirin (Ecotrin) 81 mg PO DAILY [facility] Last Admin: 08/11/18 08:06 Dose: 81 mg Dabigatran (Pradaxa) 150 mg PO Q12 [facility]; Protocol Last Admin: 08/11/18 08:07 Dose: 150 mg Escitalopram Oxalate (Lexapro) 10 mg PO HS [facility] Last Admin: 08/10/18 22:01 Dose: 10 mg Hydroxyurea (Hydrea) 500 mg PO DAILY [facility] Last Admin: 08/11/18 08:06 Dose: 500 mg Meropenem 500 mg/ Sodium (Chloride) 100 mls @ 100 mls/hr IVPB Q8 [facility] Last Admin: 08/11/18 08:05 Dose: 100 mls/hr Losartan Potassium (Cozaar) 100 mg PO DAILY [facility] Last Admin: 08/11/18 08:06 Dose: 100 mg Megestrol Acetate (Megace) 400 mg PO BID [facility] Last Admin: 08/11/18 08:05 Dose: 400 mg Pravastatin Sodium (Pravachol) 20 mg PO HS [facility] Last Admin: 08/10/18 22:02 Dose: 20 mg Tamsulosin HCl (Flomax) 0.4 mg PO DAILY [facility] Last Admin: 08/11/18 08:06 Dose: 0.4 mg - Labs Labs: 08/09/18 06:00
--- NOTE | 2018-08-11 11:50 | CP.PCM.PN ---
Subjective - Date & Time of Evaluation Date of Evaluation: 08/11/18 Time of Evaluation: 11:47 - Subjective Subjective: Seated in the bedside chair, appears comfortable. Offers no complaints of cough or shortness of breath. SpO2 98% at rest on room air. No rales or wheezes heard on exam. No rhonchi or bronchial breath sounds. Will request followup CXR for Monday AM. Objective - Vital Signs/Intake and Output Vital Signs (last 24 hours): Temp Pulse Resp BP Pulse Ox 98.1 F 63 20 130/50 L 98 08/11/18 08:43 08/11/18 08:43 08/11/18 08:43 08/11/18 08:43 08/11/18 08:43 - Medications Medications: Current Medications Acetaminophen (Tylenol 325mg Tab) 650 mg PO Q6 PRN PRN Reason: Fever >100.4 F Albuterol/Ipratropium (Duoneb 3 Mg/0.5 Mg (3 Ml) Ud) 3 ml INH RQ6 PRN PRN Reason: Shortness of Breath Amlodipine Besylate (Norvasc) 5 mg PO Q12 [facility] Last Admin: 08/11/18 08:05 Dose: 5 mg Aspirin (Ecotrin) 81 mg PO DAILY [facility] Last Admin: 08/11/18 08:06 Dose: 81 mg Dabigatran (Pradaxa) 150 mg PO Q12 [facility]; Protocol Last Admin: 08/11/18 08:07 Dose: 150 mg Escitalopram Oxalate (Lexapro) 10 mg PO [facility] Last Admin: 08/10/18 22:01 Dose: 10 mg Hydroxyurea (Hydrea) 500 mg PO DAILY [facility] Last Admin: 08/11/18 08:06 Dose: 500 mg Meropenem 500 mg/ Sodium (Chloride) 100 mls @ 100 mls/hr IVPB Q8 [facility] Last Admin: 08/11/18 08:05 Dose: 100 mls/hr Losartan Potassium (Cozaar) 100 mg PO DAILY [facility] Last Admin: 08/11/18 08:06 Dose: 100 mg Megestrol Acetate (Megace) 400 mg PO BID [facility] Last Admin: 08/11/18 08:05 Dose: 400 mg Pravastatin Sodium (Pravachol) 20 mg PO HS [facility] Last Admin: 08/10/18 22:02 Dose: 20 mg Tamsulosin HCl (Flomax) 0.4 mg PO DAILY [facility] Last Admin: 08/11/18 08:06 Dose: 0.4 mg - Labs Labs: 08/09/18 06:00 Assessment and Plan (1) UTI (urinary tract infection) Status: Acute (2) Pneumonia Status: Acute
[2018-08-11] MEDS: Pravastatin Sodium 20 MG TAB PO SCH (21:18)
[2018-08-12] MEDS: Meropenem 500 MG in Sodium Chloride 0.9% 100 ML IVPB SCH ×3 (00:10→16:51)
[2018-08-12 07:24] LABS: HEMOGLOBIN 12.3 g/dL (12.0-18.0); MEAN CELL VOLUME 102.2 fl (80.0-94.0); MEAN CORPUSCULAR HEMOGLOBIN 34.5 pg (27.0-31.0); MEAN CORPUSCULAR HGB CONC 33.8 g/dL (33.0-37.0); RBC 3.55 Mil/uL (4.40-5.90); RED CELL DISTRIBUTION WIDTH 14.2 % (11.5-14.5); WHITE BLOOD COUNT 11.6 K/uL (4.8-10.8)
[2018-08-12] MEDS: Megestrol Acetate 40 mg/ml Cup PO SCH ×2 (08:29→16:52)
[2018-08-12] MEDS: Pravastatin Sodium 20 MG TAB PO SCH (21:10)
[2018-08-13 06:35] LABS: BASO % 0.2 % (0.0-2.0); EOS # 0.1 K/uL (0.0-0.7); EOS % 0.8 % (0.0-4.0); HEMOGLOBIN 12.1 g/dL (12.0-18.0); LYMPH # 1.8 K/uL (1.0-4.3); LYMPH % 16.6 % (20.0-40.0); MEAN CELL VOLUME 102.5 fl (80.0-94.0); MEAN CORPUSCULAR HEMOGLOBIN 34.9 pg (27.0-31.0); MEAN CORPUSCULAR HGB CONC 34.1 g/dL (33.0-37.0); MONO # 0.9 K/uL (0.0-0.8); MONO % 7.8 % (0.0-10.0); NEUT # 8.1 K/uL (1.8-7.0); NEUT % 74.6 % (50.0-75.0); NRBC % 0.1 % (0.0-0.0); RBC 3.47 Mil/uL (4.40-5.90); RED CELL DISTRIBUTION WIDTH 14.1 % (11.5-14.5); WHITE BLOOD COUNT 10.9 K/uL (4.8-10.8)
[2018-08-13] MEDS: Megestrol Acetate 40 mg/ml Cup PO SCH ×2 (08:21→16:45)
--- NOTE | 2018-08-13 09:30 | CP.PCM.PN ---
Subjective - Date & Time of Evaluation Date of Evaluation: 08/13/18 Time of Evaluation: 09:29 - Subjective Subjective: Pt seems much better, His platelet count it down to 777k. Will cntinue hydroxyurea 500 mg bid. Objective - Vital Signs/Intake and Output Vital Signs (last 24 hours): Temp Pulse Resp BP Pulse Ox 98.1 F 62 20 124/55 L 100 08/13/18 08:32 08/13/18 08:32 08/13/18 08:32 08/13/18 08:32 08/13/18 08:32 - Medications Medications: Current Medications Acetaminophen (Tylenol 325mg Tab) 650 mg PO Q6 PRN PRN Reason: Fever >100.4 F Albuterol/Ipratropium (Duoneb 3 Mg/0.5 Mg (3 Ml) Ud) 3 ml INH RQ6 PRN PRN Reason: Shortness of Breath Amlodipine Besylate (Norvasc) 5 mg PO Q12 [facility] Last Admin: 08/13/18 08:22 Dose: 5 mg Aspirin (Ecotrin) 81 mg PO DAILY [facility] Last Admin: 08/13/18 08:22 Dose: 81 mg Dabigatran (Pradaxa) 150 mg PO Q12 [facility]; Protocol Last Admin: 08/13/18 08:21 Dose: 150 mg Escitalopram Oxalate (Lexapro) 10 mg PO HS [facility] Last Admin: 08/12/18 21:10 Dose: 10 mg Hydroxyurea (Hydrea) 500 mg PO BID [facility] Last Admin: 08/13/18 08:21 Dose: 500 mg Losartan Potassium (Cozaar) 100 mg PO DAILY [facility] Last Admin: 08/13/18 08:22 Dose: 100 mg Megestrol Acetate (Megace) 400 mg PO BID [facility] Last Admin: 08/13/18 08:21 Dose: 400 mg Pravastatin Sodium (Pravachol) 20 mg PO HS [facility] Last Admin: 08/12/18 21:10 Dose: 20 mg Tamsulosin HCl (Flomax) 0.4 mg PO DAILY [facility] Last Admin: 08/13/18 08:22 Dose: 0.4 mg - Labs Labs: 08/13/18 06:20
--- NOTE | 2018-08-13 10:15 | CP.PCM.PN ---
Subjective - Date & Time of Evaluation Date of Evaluation: 08/13/18 Time of Evaluation: 10:14 - Subjective Subjective: ID note- Pt. seen and examined today in TCU. patient sitting in chair and eating his food. He is in good spirits and smiles and denies any complaints. Objective - Vital Signs/Intake and Output Vital Signs (last 24 hours): Temp Pulse Resp BP Pulse Ox 98.1 F 62 20 124/55 L 100 08/13/18 08:32 08/13/18 08:32 08/13/18 08:32 08/13/18 08:32 08/13/18 08:32 - Medications Medications: Current Medications Acetaminophen (Tylenol 325mg Tab) 650 mg PO Q6 PRN PRN Reason: Fever >100.4 F Albuterol/Ipratropium (Duoneb 3 Mg/0.5 Mg (3 Ml) Ud) 3 ml INH RQ6 PRN PRN Reason: Shortness of Breath Amlodipine Besylate (Norvasc) 5 mg PO Q12 [facility] Last Admin: 08/13/18 08:22 Dose: 5 mg Aspirin (Ecotrin) 81 mg PO DAILY [facility] Last Admin: 08/13/18 08:22 Dose: 81 mg Dabigatran (Pradaxa) 150 mg PO Q12 [facility]; Protocol Last Admin: 08/13/18 08:21 Dose: 150 mg Escitalopram Oxalate (Lexapro) 10 mg PO [facility] Last Admin: 08/12/18 21:10 Dose: 10 mg Hydroxyurea (Hydrea) 500 mg PO BID [facility] Last Admin: 08/13/18 08:21 Dose: 500 mg Losartan Potassium (Cozaar) 100 mg PO DAILY [facility] Last Admin: 08/13/18 08:22 Dose: 100 mg Megestrol Acetate (Megace) 400 mg PO BID [facility] Last Admin: 08/13/18 08:21 Dose: 400 mg Pravastatin Sodium (Pravachol) 20 mg PO HS [facility] Last Admin: 08/12/18 21:10 Dose: 20 mg Tamsulosin HCl (Flomax) 0.4 mg PO DAILY [facility] Last Admin: 08/13/18 08:22 Dose: 0.4 mg - Labs Labs: - Additional Findings Additional findings: - Constitutional Appears: Non-toxic, No Acute Distress - Head Exam Head Exam: ATRAUMATIC - Eye Exam Eye Exam: EOMI, PERRL - ENT Exam ENT Exam: Normal Oropharynx - Neck Exam Neck exam: Positive for: Full Rom - Respiratory Exam Respiratory Exam: NORMAL BREATHING PATTERN Additional comments: good breath sounds b/l no wheezing - Cardiovascular Exam Cardiovascular Exam: REGULAR RHYTHM, +S1, +S2 - GI/Abdominal Exam GI & Abdominal Exam: Normal Bowel Sounds, Soft Additional comments: NT, ND no CVA tenderness b/l - Extremities Exam Extremities exam: Positive for: normal inspection - Neurological Exam Neurological exam: Alert, Laboratory Results - last 72 hr 08/12/18 08/13/18 05:20 06:20 WBC 11.6 H 10.9 H RBC 3.55 L 3.47 L Hgb 12.3 12.1 Hct 36.3 35.5 MCV 102.2 H 102.5 H MCH 34.5 H 34.9 H MCHC 33.8 34.1 RDW 14.2 14.1 Plt Count 824 H 777 H MPV 6.0 L Neut % (Auto) 74.6 Lymph % (Auto) 16.6 L [place] % (Auto) 7.8 Eos % (Auto) 0.8 Baso % (Auto) 0.2 Neut # (Auto) 8.1 H Lymph # (Auto) 1.8 [place] # (Auto) 0.9 H Eos # (Auto) 0.1 Baso # (Auto) 0.0 Microbiology 09/09/13 18:30 Blood Blood Culture - Final NO GROWTH AFTER 5 DAYS 09/09/13 18:00 Blood Blood Culture - Final NO GROWTH AFTER 5 DAYS 07/30/18 13:35 Blood-Venous Blood Culture - Final 07/30/18 13:35 Blood-Venous Gram Stain - Final NO GROWTH AFTER 5 DAYS TEST NOT PERFORMED 07/30/18 13:15 Blood-Venous Blood Culture - Final 07/30/18 13:15 Blood-Venous Gram Stain - Final NO GROWTH AFTER 5 DAYS TEST NOT PERFORMED 07/30/18 02:52 Urine,Random Urine Culture - Final Escherichia Coli Assessment and Plan (1) Bacteriuria Status: Acute (2) Pneumonia Status: Acute - Assessment and Plan (Free Text) Assessment: A/P- 88 year old male was admitted with fever and found to have large right upper lobe consolidation on his admission chect CT and e.coli in urine cx. was improved and d/c to TCU for PT and completion of his antibiotic therpay as per pcp. clinically much improved. minimal leukocytosis has resolved. has remained afebrile UA- negative admissionUrine cx- e.coli sens to zyn but not good MAX blood cx- neg x 2 CXR 08/13/2018- noted, official report pending plan- has completed 7 days of Iv meropenem for both pneumonia and the + urine cx. d/c Iv abx today. monitor asp precautions. f/u cxr reading. pmd to monitor platelet count.
--- NOTE | 2018-08-13 10:21 | CP.PCM.PN ---
Subjective - Date & Time of Evaluation Date of Evaluation: 08/13/18 Time of Evaluation: 10:21 - Subjective Subjective: The patient was seen on rounds in transitional care. He is lying in bed in a semi-to upright position and appears comfortable. He offers no specific complaints of cough or difficulty breathing. His vital signs remained stable and he continues to be afebrile. A recent chest x-ray was performed which showed clearing of the right upper lobe infiltrate. On exam there are no areas of bronchial breathing, no audible wheezing, rare dry rales in dependent zones. Status post right upper lobe pneumonia with radiographic and clinical impro vement. Objective - Vital Signs/Intake and Output Vital Signs (last 24 hours): Temp Pulse Resp BP Pulse Ox 98.1 F 62 20 124/55 L 100 08/13/18 08:32 08/13/18 08:32 08/13/18 08:32 08/13/18 08:32 08/13/18 08:32 - Medications Medications: Current Medications Acetaminophen (Tylenol 325mg Tab) 650 mg PO Q6 PRN PRN Reason: Fever >100.4 F Albuterol/Ipratropium (Duoneb 3 Mg/0.5 Mg (3 Ml) Ud) 3 ml INH RQ6 PRN PRN Reason: Shortness of Breath Amlodipine Besylate (Norvasc) 5 mg PO Q12 [facility] Last Admin: 08/13/18 08:22 Dose: 5 mg Aspirin (Ecotrin) 81 mg PO DAILY [facility] Last Admin: 08/13/18 08:22 Dose: 81 mg Dabigatran (Pradaxa) 150 mg PO Q12 [facility]; Protocol Last Admin: 08/13/18 08:21 Dose: 150 mg Escitalopram Oxalate (Lexapro) 10 mg PO [facility] Last Admin: 08/12/18 21:10 Dose: 10 mg Hydroxyurea (Hydrea) 500 mg PO BID [facility] Last Admin: 08/13/18 08:21 Dose: 500 mg Losartan Potassium (Cozaar) 100 mg PO DAILY [facility] Last Admin: 08/13/18 08:22 Dose: 100 mg Megestrol Acetate (Megace) 400 mg PO BID [facility] Last Admin: 08/13/18 08:21 Dose: 400 mg Pravastatin Sodium (Pravachol) 20 mg PO [facility] Last Admin: 08/12/18 21:10 Dose: 20 mg Tamsulosin HCl (Flomax) 0.4 mg PO DAILY [facility] Last Admin: 08/13/18 08:22 Dose: 0.4 mg - Labs Labs: 08/13/18 06:20 Assessment and Plan (1) UTI (urinary tract infection) Status: Acute (2) Pneumonia Status: Acute
[2018-08-13] MEDS: Pravastatin Sodium 20 MG TAB PO SCH (21:22)
--- NOTE | 2018-08-14 00:07 | PN ---
DATE: 08/13/2018 DAILY PROGRESS NOTE SUBJECTIVE: The patient is seen today, 08/13/2018. He is not in any cardiopulmonary distress. The patient is cooperative with physical therapy and occupational therapy. PHYSICAL EXAMINATION: VITAL SIGNS: Blood pressure 124/55, temperature 98.1, respiratory rate 20, and pulse 62. HEENT: Pupils equal and reactive to light. Normal-appearing mucosa of the conjunctivae, oropharynx, and nasal membrane mucosa. NECK: Supple. No JVD. No carotid bruit. No lymph node. No thyromegaly. CHEST AND LUNGS: Bilateral symmetrical expansion. Good air exchange. No rales. No rhonchi. CARDIOVASCULAR SYSTEM: PMI not localized. S1 and S2. No additional sounds. ABDOMEN: Normoactive bowel sounds. No tenderness. No organomegaly. No masses. EXTREMITIES: No cyanosis, no clubbing, no edema. CENTRAL NERVOUS SYSTEM: Alert, awake, oriented x2. The patient has right-sided hemiplegia. ASSESSMENT: 1. Pneumonia. 2. Cerebrovascular accident. 3. Atrial fibrillation. 4. Hypertension. 5. Peripheral vascular disease. PLAN: Continue current medications and management including the Pradaxa. Itzel Hernández MD
[2018-08-14] MEDS: Megestrol Acetate 40 mg/ml Cup PO SCH ×2 (08:52→16:28)
[2018-08-14] MEDS ORDERED: Albuterol-Ipratrop 3 mg / 0.5 (3 ml) UD INH PRN (09:56)
--- NOTE | 2018-08-14 15:09 | RAD ---
Date of service: 08/13/2018 PROCEDURE: CHEST RADIOGRAPH, 1 VIEW HISTORY: pneumonia COMPARISON: 08/09/2018 FINDINGS: LUNGS: Clear. PLEURA: No pneumothorax or pleural fluid seen. CARDIOVASCULAR: Normal. OSSEOUS STRUCTURES: No significant abnormalities. VISUALIZED UPPER ABDOMEN: Normal. OTHER FINDINGS: None. IMPRESSION: Resolution right upper lobe infiltrate. No active pulmonary disease.
[2018-08-14] MEDS: Pravastatin Sodium 20 MG TAB PO SCH (21:07)
[2018-08-15 06:43] LABS: BASO % 0.1 % (0.0-2.0); EOS # 0.1 K/uL (0.0-0.7); EOS % 0.8 % (0.0-4.0); HEMOGLOBIN 11.9 g/dL (12.0-18.0); LYMPH % 19.7 % (20.0-40.0); MEAN CELL VOLUME 102.7 fl (80.0-94.0); MEAN CORPUSCULAR HGB CONC 35.1 g/dL (33.0-37.0); MEAN PLATELET VOLUME 6.1 fl (7.2-11.7); MONO # 0.7 K/uL (0.0-0.8); MONO % 6.5 % (0.0-10.0); NEUT # 7.4 K/uL (1.8-7.0); NEUT % 72.9 % (50.0-75.0); NRBC % 0.1 % (0.0-0.0); RBC 3.3 Mil/uL (4.40-5.90); RED CELL DISTRIBUTION WIDTH 14.1 % (11.5-14.5); WHITE BLOOD COUNT 10.1 K/uL (4.8-10.8)
[2018-08-15 06:44] VITALS: RESP 20
[2018-08-15] MEDS: Megestrol Acetate 40 mg/ml Cup PO SCH ×2 (09:37→17:32)
--- NOTE | 2018-08-15 10:04 | CP.PCM.PN ---
Subjective - Date & Time of Evaluation Date of Evaluation: 08/15/18 Time of Evaluation: 10:01 - Subjective Subjective: Comfortably sitting up in bed when seen on rounds. Offers no complaints of cough, SOB or chest discomfort. Vital signs have remained stable, afebrile. Breath sounds are diminished slightly in both lungs. Occasional sonorous rhonchi in lower lobes. No audible wheezes or bronchial breath sounds. Will sign off case at this time. Please call again if needed. Thanks, Objective - Vital Signs/Intake and Output Vital Signs (last 24 hours): Temp Pulse Resp BP Pulse Ox 97.7 F 60 20 117/44 L 97 08/14/18 22:14 08/15/18 09:38 08/14/18 22:14 08/15/18 09:38 08/14/18 22:14 - Medications Medications: Current Medications Acetaminophen (Tylenol 325mg Tab) 650 mg PO Q6 PRN PRN Reason: Fever >100.4 F Albuterol/Ipratropium (Duoneb 3 Mg/0.5 Mg (3 Ml) Ud) 3 ml INH RQ6 PRN PRN Reason: Shortness of Breath Amlodipine Besylate (Norvasc) 5 mg PO Q12 [facility] Last Admin: 08/15/18 09:35 Dose: 5 mg Aspirin (Ecotrin) 81 mg PO DAILY [facility] Last Admin: 08/15/18 09:38 Dose: 81 mg Dabigatran (Pradaxa) 150 mg PO Q12 [facility]; Protocol Last Admin: 08/15/18 09:34 Dose: 150 mg Escitalopram Oxalate (Lexapro) 10 mg PO HS [facility] Last Admin: 08/14/18 21:07 Dose: 10 mg Hydroxyurea (Hydrea) 500 mg PO BID [facility] Last Admin: 08/15/18 09:34 Dose: 500 mg Losartan Potassium (Cozaar) 100 mg PO DAILY [facility] Last Admin: 08/15/18 09:38 Dose: 100 mg Megestrol Acetate (Megace) 400 mg PO BID [facility] Last Admin: 08/15/18 09:37 Dose: 400 mg Pravastatin Sodium (Pravachol) 20 mg PO HS [facility] Last Admin: 08/14/18 21:07 Dose: 20 mg Tamsulosin HCl (Flomax) 0.4 mg PO DAILY [facility] Last Admin: 08/15/18 09:35 Dose: 0.4 mg - Labs Labs: 10/10/18 06:30 Assessment and Plan (1) UTI (urinary tract infection) Status: Acute (2) Pneumonia Status: Acute
[2018-08-15] MEDS: Pravastatin Sodium 20 MG TAB PO SCH (21:58)
[2018-08-16] MEDS: Megestrol Acetate 40 mg/ml Cup PO SCH ×2 (09:40→17:39)
--- NOTE | 2018-08-16 11:54 | CP.PCM.PN ---
Subjective - Date & Time of Evaluation Date of Evaluation: 08/16/18 Time of Evaluation: 11:54 - Subjective Subjective: Id note- pt. seen and examined today in TCU. pt. sitting up in chair and in good spirits. denies any complaints. Objective - Vital Signs/Intake and Output Vital Signs (last 24 hours): Temp Pulse Resp BP Pulse Ox 98.1 F 60 20 150/55 L 99 08/16/18 08:40 08/16/18 09:42 08/16/18 08:40 08/16/18 09:42 08/16/18 08:40 - Medications Medications: Current Medications Acetaminophen (Tylenol 325mg Tab) 650 mg PO Q6 PRN PRN Reason: Fever >100.4 F Albuterol/Ipratropium (Duoneb 3 Mg/0.5 Mg (3 Ml) Ud) 3 ml INH RQ6 PRN PRN Reason: Shortness of Breath Amlodipine Besylate (Norvasc) 5 mg PO Q12 [facility] Last Admin: 08/16/18 09:41 Dose: 5 mg Aspirin (Ecotrin) 81 mg PO DAILY [facility] Last Admin: 08/16/18 09:42 Dose: 81 mg Dabigatran (Pradaxa) 150 mg PO Q12 [facility]; Protocol Last Admin: 08/16/18 09:41 Dose: 150 mg Escitalopram Oxalate (Lexapro) 10 mg PO [facility] Last Admin: 08/15/18 21:57 Dose: 10 mg Hydroxyurea (Hydrea) 500 mg PO BID [facility] Last Admin: 08/16/18 09:40 Dose: 500 mg Losartan Potassium (Cozaar) 100 mg PO DAILY [facility] Last Admin: 08/16/18 09:42 Dose: 100 mg Megestrol Acetate (Megace) 400 mg PO BID [facility] Last Admin: 08/16/18 09:40 Dose: 400 mg Pravastatin Sodium (Pravachol) 20 mg PO HS [facility] Last Admin: 08/15/18 21:58 Dose: 20 mg Tamsulosin HCl (Flomax) 0.4 mg PO DAILY [facility] Last Admin: 08/16/18 09:40 Dose: 0.4 mg - Labs Labs: - Additional Findings Additional findings: - Constitutional Appears: Non-toxic, No Acute Distress - Head Exam Head Exam: ATRAUMATIC - Eye Exam Eye Exam: EOMI, PERRL - ENT Exam ENT Exam: Normal Oropharynx - Neck Exam Neck exam: Positive for: Full Rom - Respiratory Exam Respiratory Exam: NORMAL BREATHING PATTERN Additional comments: good breath sounds b/l no wheezing - Cardiovascular Exam Cardiovascular Exam: REGULAR RHYTHM, +S1, +S2 - GI/Abdominal Exam GI & Abdominal Exam: Normal Bowel Sounds, Soft Additional comments: NT, ND - Extremities Exam Extremities exam: Positive for: normal inspection - Neurological Exam Neurological exam: Alert and answers questions Laboratory Results - last 72 hr 08/15/18 06:30 WBC 10.1 RBC 3.30 L Hgb 11.9 L Hct 33.9 L MCV 102.7 H MCH 36.0 H MCHC 35.1 RDW 14.1 Plt Count 628 H D MPV 6.1 L Neut % (Auto) 72.9 Lymph % (Auto) 19.7 L [place] % (Auto) 6.5 Eos % (Auto) 0.8 Baso % (Auto) 0.1 Neut # (Auto) 7.4 H Lymph # (Auto) 2.0 [place] # (Auto) 0.7 Eos # (Auto) 0.1 Baso # (Auto) 0.0 Accession No. 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 PLEURA: No pneumothorax or pleural fluid seen. CARDIOVASCULAR: Normal. OSSEOUS STRUCTURES: No significant abnormalities. VISUALIZED UPPER ABDOMEN: Normal. OTHER FINDINGS: None. IMPRESSION: Resolution right upper lobe infiltrate. No active pulmonary disease Assessment and Plan (1) Bacteriuria Status: Acute (2) Pneumonia Status: Acute - Assessment and Plan (Free Text) Assessment: A/P- 88 year old male was admitted with fever and found to have large right upper lobe consolidation on his admission chect CT and e.coli in urine cx. was improved and d/c to TCU for PT and completion of his antibiotic therpay as per pcp. clinically much improved. minimal leukocytosis has resolved. has remained afebrile UA- negative admissionUrine cx- e.coli sens to zyn but not good MAX blood cx- neg x 2 CXR 08/13/2018- resolution of the pneumonia as per report. plan- has completed 7 days of Iv meropenem for both pneumonia and the + urine cx. off all abx. pt. much improved. will sign off the case at this time. Please re-consult as needed.
[2018-08-16] MEDS: Pravastatin Sodium 20 MG TAB PO SCH (22:37)
--- NOTE | 2018-08-17 00:18 | PN ---
DATE: 08/16/2018 DAILY PROGRESS NOTE SUBJECTIVE: The patient is seen today, 08/16/2018. He is not in any cardiopulmonary distress. PHYSICAL EXAMINATION: VITAL SIGNS: Blood pressure is 136/50, temperature 97.9, respiratory rate 20, and pulse 63. HEENT: Pupils equal and reactive to light. Normal-appearing mucosa of the conjunctivae, oropharynx and nasal membrane mucosa. NECK: Supple. No JVD. No carotid bruits. No lymph node. No thyromegaly. CHEST AND LUNGS: Bilaterally symmetrical expansion. Good air exchange. No rales. No rhonchi. CARDIOVASCULAR SYSTEM: PMI not localized. S1 and S2. No additional sounds. ABDOMEN: Normoactive bowel sounds. No tenderness. No organomegaly. No masses. EXTREMITIES: No cyanosis. No clubbing. No edema. CENTRAL NERVOUS SYSTEM: Alert, awake, and oriented x3 with left-sided hemiparesis. ASSESSMENT: Cerebrovascular accident with left-sided hemiparesis, pneumonia, paroxysmal atrial fibrillation, hypertension. PLAN: The patient insisted to go home and not to go to any subacute rehab or any other institution. Discussed with social service. We ordered for the patient wheelchair as well as necessary durable equipment, which was recommended by Physical Therapy. Continue current medications. Itzel Hernández MD
[2018-08-17 06:23] LABS: BASO % 0.3 % (0.0-2.0); EOS # 0.1 K/uL (0.0-0.7); EOS % 1.1 % (0.0-4.0); HEMOGLOBIN 12.5 g/dL (12.0-18.0); LYMPH # 1.8 K/uL (1.0-4.3); LYMPH % 23.8 % (20.0-40.0); MEAN CORPUSCULAR HEMOGLOBIN 35.7 pg (27.0-31.0); MEAN CORPUSCULAR HGB CONC 34.4 g/dL (33.0-37.0); MONO # 0.6 K/uL (0.0-0.8); MONO % 7.5 % (0.0-10.0); NEUT # 5.2 K/uL (1.8-7.0); NEUT % 67.3 % (50.0-75.0); RBC 3.49 Mil/uL (4.40-5.90); WHITE BLOOD COUNT 7.7 K/uL (4.8-10.8)
--- NOTE | 2018-08-17 09:11 | CP.PCM.PN ---
Subjective - Date & Time of Evaluation Date of Evaluation: 08/17/18 Time of Evaluation: 09:09 - Subjective Subjective: Pt's platelets are 533 today.Hydroxyurea is discontinued and he is being discharged today.CBC in 1 week Objective - Vital Signs/Intake and Output Vital Signs (last 24 hours): Temp Pulse Resp BP Pulse Ox 98.4 F 63 20 122/49 L 99 08/16/18 19:44 08/16/18 21:37 08/16/18 19:44 08/16/18 21:37 08/16/18 19:44 - Medications Medications: Current Medications Acetaminophen (Tylenol 325mg Tab) 650 mg PO Q6 PRN PRN Reason: Fever >100.4 F Albuterol/Ipratropium (Duoneb 3 Mg/0.5 Mg (3 Ml) Ud) 3 ml INH RQ6 PRN PRN Reason: Shortness of Breath Amlodipine Besylate (Norvasc) 5 mg PO Q12 [facility] Last Admin: 08/16/18 21:37 Dose: 5 mg Aspirin (Ecotrin) 81 mg PO DAILY [facility] Last Admin: 08/16/18 09:42 Dose: 81 mg Dabigatran (Pradaxa) 150 mg PO Q12 [facility]; Protocol Last Admin: 08/16/18 21:30 Dose: 150 mg Escitalopram Oxalate (Lexapro) 10 mg PO HS [facility] Last Admin: 08/16/18 22:37 Dose: 10 mg Hydroxyurea (Hydrea) 500 mg PO DAILY [facility] Losartan Potassium (Cozaar) 100 mg PO DAILY [facility] Last Admin: 08/16/18 09:42 Dose: 100 mg Megestrol Acetate (Megace) 400 mg PO BID [facility] Last Admin: 08/16/18 17:39 Dose: 400 mg Pravastatin Sodium (Pravachol) 20 mg PO HS [facility] Last Admin: 08/16/18 22:37 Dose: 20 mg Tamsulosin HCl (Flomax) 0.4 mg PO DAILY [facility] Last Admin: 08/16/18 09:40 Dose: 0.4 mg - Labs Labs: 08/17/18 05:55
[2018-08-17 09:26] VITALS: TEMP 98.2; O2SAT 98
[2018-08-17] MEDS: Megestrol Acetate 40 mg/ml Cup PO SCH (09:44)
[2018-08-17 09:50] VITALS: BP 138/50; PULSE 63
--- NOTE | 2018-08-18 17:14 | DS ---
REASON FOR ADMISSION: This is an 88-year-old male with history of multiple medical problems, was admitted to the transitional care unit for deconditioning as well as completion of the IV antibiotic treatment for pneumonia. COURSE OF HOSPITALIZATION: The patient was admitted to transitional care unit at [facility]. The patient was started on both physical therapy and occupational therapy as the patient has CVA with right-sided hemiparesis. The patient was continued on IV antibiotics and he was discharged in a stable condition. The patient had pulmonary consultation done by Dr. Weems during this admission and he had a followup chest x-ray, the latest was on 08/13/2018 that showed resolution of right upper lobe infiltrate and no active pulmonary disease. FINAL DIAGNOSES: Pneumonia, cerebrovascular accident with right-sided hemiparesis, atrial fibrillation, hypertension. [facility] MD Edgar
== END 2018-08-17 14:30 | disposition home health service (06) | DRG 194 ==
LOC: H.TCU 21:21
PROVIDERS: ADMIT Internal Medicine; ATTEND Internal Medicine
PROC: 3E03329 Introduction of Other Anti-infective into Peripheral Vein, Percutaneous Approach (ICD-10-PCS; principal; 2018-08-06)
PROC: F07M6FZ Therapeutic Exercise Treatment of Musculoskeletal System - Whole Body using Assistive, Adaptive, Supportive or Protective Equipment (ICD-10-PCS; 2018-08-06)
DX: J18.9 Pneumonia, unspecified organism (principal); N39.0 Urinary tract infection, site not specified; I69.354 Hemiplegia and hemiparesis following cerebral infarction affecting left non-dominant side; I69.351 Hemiplegia and hemiparesis following cerebral infarction affecting right dominant side; N40.0 Benign prostatic hyperplasia without lower urinary tract symptoms; H26.9 Unspecified cataract; M79.89 Other specified soft tissue disorders; R31.9 Hematuria, unspecified; B96.20 Unspecified Escherichia coli [E. coli] as the cause of diseases classified elsewhere; E78.00 Pure hypercholesterolemia, unspecified; I10 Essential (primary) hypertension; I48.0 Paroxysmal atrial fibrillation; I73.9 Peripheral vascular disease, unspecified

== ENCOUNTER 2018-08-18 15:45 | Inpatient (IN) | payer MEDICARE ==
[2018-08-18 15:45] VITALS: BMI 24.7
--- NOTE | 2018-08-18 17:01 | ED PDOC ---
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 Patient also complains of generalized weakness, but denies any headaches, shortness of breath, nausea, or vomiting. Patient offers no other medical complaints at this time. PMD: Itzel Hernández Past Medical History Reviewed: Historical Data, Nursing Documentation, Vital Signs Vital Signs: Last Vital Signs Temp 98.6 F 08/18/18 15:47 Pulse 60 08/18/18 15:47 Resp 18 08/18/18 15:47 BP 109/47 L 08/18/18 15:47 Pulse Ox 98 08/18/18 15:47 - Medical History PMH: Atrial Fibrillation, Cardia Arrhythmia, CVA, HTN, Hypercholesterolemia, Peripheral Edema (right leg swelling) Denies: HIV, Chronic Kidney Disease - Surgical History Other surgeries: cataract extraction, bilaterally - Family History Family History: States: Unknown Family Hx - Social History Current smoker - smoking cessation education provided: No Alcohol: None Drugs: Denies - Immunization History Hx Tetanus Toxoid Vaccination: No Hx Influenza Vaccination: No Hx Pneumococcal Vaccination: No - Home Medications Home Medications: Ambulatory Orders Medication Instructions Recorded Aspirin [Ecotrin] 81 mg PO DAILY 07/30/18 Dabigatran [Pradaxa] 150 mg PO Q12 07/30/18 Ergocalciferol (Vitamin D2) 50,000 unit PO MO 07/30/18 [Vitamin D2] Losartan [Cozaar] 100 mg PO DAILY 07/30/18 Pravastatin Sodium [Pravachol] 20 mg PO HS 07/30/18 Tamsulosin [Flomax] 0.4 mg PO DAILY 07/30/18 amLODIPine [Norvasc] 5 mg PO Q12 07/30/18 Escitalopram [Lexapro] 10 mg PO HS tab 08/06/18 - Allergies Allergies/Adverse Reactions: Allergies Allergy/AdvReac Type Severity Reaction Status Date / Time No Known Allergies Allergy Unverified 09/09/13 16:19 Review of Systems ROS Statement: Except As Marked, All Systems Reviewed And Found Negative Constitutional: Negative for: Fever Cardiovascular: Positive for: Chest Pain Respiratory: Negative for: Shortness of Breath Gastrointestinal: Negative for: Nausea, Vomiting Neurological: Positive for: Weakness. Negative for: Headache Physical Exam - Reviewed Nursing Documentation Reviewed: Yes Vital Signs Reviewed: Yes - Physical Exam Appears: Positive for: Non-toxic, No Acute Distress Head Exam: Positive for: ATRAUMATIC, NORMAL INSPECTION, NORMOCEPHALIC Skin: Positive for: Normal Color, Warm, DRY Eye Exam: Positive for: EOMI, Normal appearance, PERRL ENT: Positive for: Normal ENT Inspection Neck: Positive for: Normal, Painless ROM Cardiovascular/Chest: Positive for: Tachycardia, Irregularly Irregular Respiratory: Positive for: Normal Breath Sounds. Negative for: Respiratory Distress Gastrointestinal/Abdominal: Positive for: Normal Exam, Soft. Negative for: Tenderness Back: Positive for: Normal Inspection Extremity: Positive for: Normal ROM. Negative for: Deformity, Swelling Neurologic/Psych: Positive for: Alert, Oriented (x3). Negative for: Motor/Sensory Deficits - Laboratory Results Result Diagrams: 08/18/18 17:00 08/18/18 17:00 - ECG Interpretation Of ECG: A fib @ 44, no ST-T changes. O2 Sat by Pulse Oximetry: 98 (RA) Pulse Ox Interpretation: Normal - Radiology X-Ray: Interpreted by Me X-Ray Interpretation: No Acute Disease Medical Decision Making Medical Decision Making: Time: 16:55 Impression: chest pain Plan: --EKG --CMP --Lipid Panel --Troponin --CBC --Coags --Chest X-Ray --Glucose, POC 18:[address] Hernández, Dr. Suresh for Cardio. 19:[address] Suresh. Scribe Attestation: Documented by, Aura Jeffery acting as a scribe for Candace De Oliveira MD. Provider Scribe Attestation: All medical record entries made by the Scribe were at my direction and personally dictated by me. I have reviewed the chart and agree that the record accurately reflects my personal performance of the history, physical exam, medical decision making, and the department course for this patient. I have also personally directed, reviewed, and agree with the discharge instructions and disposition. Disposition - Clinical Impression Clinical Impression: Chest pain, Atrial fibrillation with slow ventricular response - Patient ED Disposition Is Patient to be Admitted: Yes - Disposition Disposition Time: 18:52 Condition: STABLE Forms: [employer] (Irish) - Pt Status Changed To: Hospital Disposition Of: Inpatient - Admit Certification Admit to Inpatient:: After my assessment, the patient will require hospitalization for at least two midnights. This is because of the severity of symptoms shown, intensity of services needed, and/or the medical risk in this patient being treated as an outpatient. - POA Present On Arrival: None
[2018-08-18 17:14] LABS: BASO % 0.3 % (0.0-2.0); EOS # 0.1 K/uL (0.0-0.7); EOS % 0.4 % (0.0-4.0); HEMOGLOBIN 13.5 g/dL (12.0-18.0); LYMPH # 1.9 K/uL (1.0-4.3); LYMPH % 15.2 % (20.0-40.0); MEAN CELL VOLUME 104.4 fl (80.0-94.0); MEAN CORPUSCULAR HEMOGLOBIN 35.5 pg (27.0-31.0); MEAN PLATELET VOLUME 6.1 fl (7.2-11.7); MONO # 0.8 K/uL (0.0-0.8); MONO % 6.1 % (0.0-10.0); NEUT # 9.6 K/uL (1.8-7.0); NRBC % 0.1 % (0.0-0.0); RBC 3.81 Mil/uL (4.40-5.90); RED CELL DISTRIBUTION WIDTH 14.2 % (11.5-14.5); WHITE BLOOD COUNT 12.3 K/uL (4.8-10.8)
[2018-08-18 17:24] LABS: INR 1.5; PROTHROMBIN TIME 17.3 Seconds (9.8-13.1)
[2018-08-18 17:26] LABS: PARTIAL THROMBOPLASTIN TIME 59.5 Seconds (25.6-37.1)
[2018-08-18 17:33] LABS: ALB/GLOB RATIO 0.9 (1.0-2.1); ALBUMIN 3.9 g/dL (3.5-5.0); ALT/SGPT 43 U/L (21-72); AST/SGOT 33 U/L (17-59); BLOOD UREA NITROGEN 36 mg/dl (9-20); CALCIUM 9.4 mg/dL (8.4-10.2); GFR NON-AFRICAN AMERICAN 44; HDL CHOLESTEROL 41 MG/DL (30-70)
[2018-08-18 17:35] LABS: LDL CHOLESTEROL 65 mg/dL (0-129)
--- NOTE | 2018-08-18 22:18 | RAD ---
Date of service: 08/18/2018 PROCEDURE: CHEST RADIOGRAPH, 1 VIEW HISTORY: SOB COMPARISON: Is made with 08/13/2018 FINDINGS: LUNGS: Clear. PLEURA: No pneumothorax or pleural fluid seen. CARDIOVASCULAR: Normal. OSSEOUS STRUCTURES: No significant abnormalities. VISUALIZED UPPER ABDOMEN: Normal. OTHER FINDINGS: None. IMPRESSION: No active disease.
--- NOTE | 2018-08-19 14:03 | CP.PCM.CON ---
History of Present Illness - History of Present Illness History of Present Illness: THE PATIENT IS AN 88 YEAR OLD MALE WITH A HISTORY OF CHRONIC ATRIAL FIBRILLATION, HYPERTENSION, HYPERLIPIDEMIA AND A PRIOR CVA. HE WAS BROUGHT TO THE ER YESTERDAY FOR CHEST PAIN ON 08/17/18 AND WEAKNESS AND ADMITTED TO AND I WAS CALLED TO SEE HIM. HE DENIES ANY RECENT CHEST PAIN TO ME AND ALSO DENIES ANY HISTORY OF CAD. HE ALSO DENIES PALPITATIONS, SYNCOPE OR NEAR-SYNCOPE OR SOB. Past Patient History - Past Medical History & Family History Past Medical History?: Yes - Past Social History Smoking Status: Never Smoked - CARDIAC Hx Cardiac Disorders: Yes Hx Atrial Fibrillation: Yes Hx Cardia Arrhythmia: Yes Hx Hypercholesterolemia: Yes Hx Hypertension: Yes - PULMONARY Hx Respiratory Disorders: No - NEUROLOGICAL Hx Neurological Disorder: Yes HX Cerebrovascular Accident: Yes (Right arm weakness) - HEENT Hx HEENT Problems: Yes Hx Cataracts: Yes - RENAL Hx Chronic Kidney Disease: No - ENDOCRINE/METABOLIC Hx Endocrine Disorders: No - HEMATOLOGICAL/ONCOLOGICAL Hx Blood Disorders: No Hx Human Immunodeficiency Virus (HIV): No - INTEGUMENTARY Hx Dermatological Problems: Yes Other/Comment: low extremety discolortation - MUSCULOSKELETAL/RHEUMATOLOGICAL Hx Musculoskeletal Disorders: Yes Hx Falls: Yes - GASTROINTESTINAL Hx Gastrointestinal Disorders: No - GENITOURINARY/GYNECOLOGICAL Hx Genitourinary Disorders: Yes Hx Prostate Problems: Yes - PSYCHIATRIC Hx Substance Use: No - SURGICAL HISTORY Hx Surgeries: Yes Hx Cataract Extraction: Yes (dmitry) - ANESTHESIA Hx Anesthesia: Yes Hx Anesthesia Reactions: No Hx Malignant Hyperthermia: No Meds Allergies/Adverse Reactions: Allergies Allergy/AdvReac Type Severity Reaction Status Date / Time No Known Allergies Allergy Unverified 09/09/13 16:19 - Medications Medications: Current Medications Amlodipine Besylate (Norvasc) 5 mg PO Q12 [facility] Last Admin: 08/19/18 09:29 Dose: 5 mg Aspirin (Ecotrin) 81 mg PO DAILY [facility] Last Admin: 08/19/18 09:29 Dose: 81 mg Dabigatran (Pradaxa) 150 mg PO Q12 [facility]; Protocol Last Admin: 08/19/18 09:30 Dose: 150 mg Ergocalciferol (Drisdol 50,000 Intl Units Cap) 1 cap PO MO [facility] Escitalopram Oxalate (Lexapro) 10 mg PO HS [facility] Losartan Potassium (Cozaar) 100 mg PO DAILY [facility] Last Admin: 08/19/18 09:27 Dose: 100 mg Pravastatin Sodium (Pravachol) 20 mg PO [facility] Tamsulosin HCl (Flomax) 0.4 mg PO DAILY [facility] Last Admin: 08/19/18 09:29 Dose: 0.4 mg Physical Exam - Respiratory Exam Respiratory Exam: Clear to Auscultation Bilateral - Cardiovascular Exam Cardiovascular Exam: Irregular Rhythm, +S1, +S2 - Extremities Exam Additional comments: NO LE EDEMA - Psychiatric Exam Additional comments: RIGHT SIDED WEAKNESS - Additional Findings Additional findings: EKG AY REST SHOWED ATRIAL FIBRILLATION WITH RATE OF 44 TROPONINS NORMAL CXR NAD Results - Vital Signs Recent Vital Signs: Last Vital Signs Temp 98.0 F 08/19/18 09:40 Pulse 59 L 08/19/18 09:40 Resp 18 08/19/18 09:40 BP 129/53 L 08/19/18 09:40 Pulse Ox 100 08/19/18 09:40 - Labs Result Diagrams: 08/18/18 17:00 08/18/18 17:00 Labs: Laboratory Results - last 24 hr 08/18/18 08/18/18 08/18/18 17:00 17:00 17:00 WBC 12.3 H D RBC 3.81 L Hgb 13.5 Hct 39.8 MCV 104.4 H MCH 35.5 H MCHC 34.0 RDW 14.2 Plt Count 523 H MPV 6.1 L Neut % (Auto) 78.0 H Lymph % (Auto) 15.2 L Stark % (Auto) 6.1 Eos % (Auto) 0.4 Baso % (Auto) 0.3 Neut # (Auto) 9.6 H Lymph # (Auto) 1.9 Stark # (Auto) 0.8 Eos # (Auto) 0.1 Baso # (Auto) 0.0 PT 17.3 H INR 1.5 APTT 59.5 H Sodium 141 Potassium 4.8 Chloride 110 H Carbon Dioxide 22 Anion Gap 14 BUN 36 H Creatinine 1.5 Est GFR ( Amer) 53 Est GFR (Non-Af Amer) 44 POC Glucose (mg/dL) Random Glucose 99 Calcium 9.4 Total Bilirubin 0.8 AST 33 ALT 43 Alkaline Phosphatase 82 Troponin I < 0.0120 Total Protein 8.4 H Albumin 3.9 Globulin 4.5 H Albumin/Globulin Ratio 0.9 L Triglycerides 71 Cholesterol 125 LDL Cholesterol Direct 65 HDL Cholesterol 41 08/18/18 08/19/18 08/19/18 17:07 01:30 09:00 WBC RBC Hgb Hct MCV MCH MCHC RDW Plt Count MPV Neut % (Auto) Lymph % (Auto) Stark % (Auto) Eos % (Auto) Baso % (Auto) Neut # (Auto) Lymph # (Auto) Stark # (Auto) Eos # (Auto) Baso # (Auto) PT INR APTT Sodium Potassium Chloride Carbon Dioxide Anion Gap BUN Creatinine Est GFR ( Amer) Est GFR (Non-Af Amer) POC Glucose (mg/dL) 89 Random Glucose Calcium Total Bilirubin AST ALT Alkaline Phosphatase Troponin I < 0.0120 < 0.0120 Total Protein Albumin Globulin Albumin/Globulin Ratio Triglycerides Cholesterol LDL Cholesterol Direct HDL Cholesterol Assessment & Plan - Assessment and Plan (Free Text) Assessment: CHRONIC ATRIAL FIBRILLATION HYPERTENSION HYPERLIPIDEMIA ATRIAL FIBRILLATION Plan: THE PATIENT WAS ADMITTED TO 4N ON TELEMETRY CONTINUE LOSARTAN, AMLODIPINE, ASPIRIN, PRADAXA, PRAVASTATIN AND LEXAPRO PHARMACOLOGICAL STRESS TEST DISCUSSED BUT DECLINED ECHOCARDIOGRAM
--- NOTE | 2018-08-19 17:11 | CARD ---
APPROVED REPORT Date of service: 08/18/2018 EKG Measurement Heart [id number] <Conclusion> Atrial fibrillation with slow ventricular response Abnormal ECG
[2018-08-19] MEDS: Pravastatin Sodium 20 MG TAB PO SCH (21:15)
[2018-08-20] MEDS ORDERED: Ergocalciferol 50,000 Intl Units Cap PO SCH (00:37)
--- NOTE | 2018-08-20 04:33 | HP ---
HISTORY OF PRESENT ILLNESS: This is an 88-year-old male with history of multiple medical problems, was just discharged from transitional care unit on the day before admission. Ambulance was called by the patient's caregiver as he said the patient had chest pain and dizziness. The patient denied chest pain at the time of this examination. He denies history of any cardiac catheterization. Other review of systems is positive for weakness of the right side due to right-sided hemiplegia. ALLERGIES: NO KNOWN ALLERGY. MEDICATIONS: Reviewed as per MAR and is ordered. PAST MEDICAL HISTORY: Hypertension, atrial fibrillation, dementia. SOCIAL HISTORY: No history of smoking, EtOH, or substance abuse. FAMILY HISTORY: Noncontributory. PHYSICAL EXAMINATION: GENERAL: The patient is not in any cardiopulmonary distress. VITAL SIGNS: Blood pressure 129/53, temperature 98, respiratory rate 18, and pulse 59. HEENT: Pupil equal and reactive to light. Normal appearing mucosa of the conjunctivae, oropharynx, and nasal membrane mucosa. NECK: Supple. No JVD. No carotid bruit. No lymph node. No thyromegaly. CHEST AND LUNGS: Bilateral symmetrical expansion with air exchange. No rales. No rhonchi. CARDIOVASCULAR SYSTEM: PMI not localized. S1 and S2. No additional sounds. ABDOMEN: Normoactive bowel sounds. No tenderness. No organomegaly. No masses. EXTREMITIES: No cyanosis. No clubbing. No edema. CENTRAL NERVOUS SYSTEM: Alert, awake and oriented x2. The patient has right-sided hemiparesis. ASSESSMENT: Chest pain, myocardial infarction is ruled out; hypertension; atrial fibrillation, on anticoagulant; cerebrovascular accident with right-sided hemiparesis. PLAN: Continue current medications and management. Cardiac enzymes every eight 8 hours x3. Follow cardiology recommendations. Sara MD Edgar
--- NOTE | 2018-08-20 09:28 | CP.PCM.PN ---
Subjective - Date & Time of Evaluation Date of Evaluation: 08/20/18 Time of Evaluation: 08:45 - Subjective Subjective: NO CHEST PAIN OR SOB FEELS BETTER TODAY Objective - Vital Signs/Intake and Output Vital Signs (last 24 hours): Temp Pulse Resp BP Pulse Ox 97.7 F 79 20 134/51 L 97 08/20/18 08:12 08/20/18 08:12 08/20/18 08:12 08/20/18 08:12 08/20/18 08:12 - Medications Medications: Current Medications Amlodipine Besylate (Norvasc) 5 mg PO Q12 [facility] Last Admin: 08/19/18 21:17 Dose: 5 mg Aspirin (Ecotrin) 81 mg PO DAILY [facility] Last Admin: 08/19/18 09:29 Dose: 81 mg Dabigatran (Pradaxa) 150 mg PO Q12 [facility]; Protocol Last Admin: 08/19/18 21:15 Dose: 150 mg Ergocalciferol (Drisdol 50,000 Intl Units Cap) 1 cap PO MO [facility] Last Admin: 08/20/18 00:30 Dose: 1 cap Escitalopram Oxalate (Lexapro) 10 mg PO HS [facility] Last Admin: 08/19/18 21:15 Dose: 10 mg Losartan Potassium (Cozaar) 100 mg PO DAILY [facility] Last Admin: 08/19/18 09:27 Dose: 100 mg Pravastatin Sodium (Pravachol) 20 mg PO HS [facility] Last Admin: 08/19/18 21:15 Dose: 20 mg Tamsulosin HCl (Flomax) 0.4 mg PO DAILY [facility] Last Admin: 08/19/18 09:29 Dose: 0.4 mg - Labs Labs: 08/18/18 17:00 08/18/18 17:00 PT 17.3 Seconds (9.8-13.1) H 08/18/18 17:00 INR 1.5 08/18/18 17:00 APTT 59.5 Seconds (25.6-37.1) H 08/18/18 17:00 - Respiratory Exam Respiratory Exam: Clear to Ausculation Bilateral - Cardiovascular Exam Cardiovascular Exam: Irregular Rhythm, +S1, +S2 - Extremities Exam Additional comments: NO SIGNIFICANT LE EDEMA Assessment and Plan - Assessment and Plan (Free Text) Assessment: ATRIAL FIBRILLATION HYPERTENSION HYPERLIPIDEMIA Plan: CONTINUE LOSARTAN, AMLODIPINE, ASPIRIN, PRADAXA, PRAVASTATIN T6ODAY PATIENT AGREED TO UNDERGO A PHARMACOLOGICAL STRESS TEST SO IT WAS ORDERED ECHOCARDIOGRAM TODAY
--- NOTE | 2018-08-20 18:46 | CARD ---
APPROVED REPORT Date of service: 08/20/2018 EXAM: Two-dimensional and M-mode echocardiogram with Doppler and color Doppler. Other Information Quality : GoodRhythm : Atrial Fibrillation INDICATION Abnormal EKG/Arrhythmia Chest Pain 2D DIMENSIONS IVSd0.94 (0.7-1.1cm)LVDd4.57 (3.9-5.9cm) LVOT Diameter2.20 (1.8-2.4cm)PWd0.95 (0.7-1.1cm) IVSs0.94 (0.8-1.2cm)LVDs3.57 (2.5-4.0cm) FS (%) 21.8 %PWs0.99 (0.8-1.2cm) M-Mode DIMENSIONS Left Atrium (MM)5.31 (2.5-4.0cm)IVSd0.72 (0.7-1.1cm) Aortic Root3.19 (2.2-3.7cm)LVDd7.22 (4.0-5.6cm) Aortic Cusp Exc.1.75 (1.5-2.0cm)PWd0.69 (0.7-1.1cm) IVSs1.13 cmFS (%) 35 % LVDs4.66 (2.0-3.8cm)PWs1.19 cm Aortic Valve AoV Peak Tfasbyyq979.0cm/sAoV VTI28.4cmAO Peak GR.13mmHg LVOT Peak Tmrnawmv138.0cm/sLVOT VTI19.79cmAO Mean GR.6mmHg JONATHAN (VMAX)1.78dl2JGN (VTI)1.44cm2 Mitral Valve E/A ratio0.0 TDI E/Lateral E'0.0E/Medial E'0.0 Tricuspid Valve TR Peak Vzziukzk879ih/sRAP BDELYGDU91snZdYX Peak Gr.25mmHg [id number] LEFT VENTRICLE The left ventricle is normal size. There is normal left ventricular wall thickness. The left ventricular systolic function is normal. The estimated ejection fraction is 55-60% No regional wall motion abnormalities noted.. The left ventricular diastolic function is not assessed due to underlying Atrial fibrillation. No left ventricle thrombus noted on this study. There is no ventricular septal defect visualized. There is no left ventricular aneurysm. There is no mass noted in the left ventricle. RIGHT VENTRICLE The right ventricle is normal size. There is normal right ventricular wall thickness. The right ventricular systolic function is normal. ATRIA The left atrium is moderate to severely dilated. The right atrium size is normal. The interatrial septum is intact with no evidence for an atrial septal defect. AORTIC VALVE The aortic valve is normal in structure. Mild aortic regurgitation is present. There is no aortic valvular stenosis. There is no aortic valvular vegetation. MITRAL VALVE The mitral valve is normal in structure. There is no evidence of mitral valve prolapse. There is no mitral valve stenosis. There is no mitral valve regurgitation noted. TRICUSPID VALVE The tricuspid valve is normal in structure. There is trace tricuspid valve regurgitation noted. RVSP is calculated at 35 mm Hg. There is no tricuspid valve prolapse or vegetation. There is no tricuspid valve stenosis. PULMONIC VALVE The pulmonary valve is normal in structure. There is no pulmonic valvular regurgitation. There is no pulmonic valvular stenosis. GREAT VESSELS The aortic root is normal in size. The ascending aorta is normal in size. The pulmonary artery is normal. The IVC is normal in size and collapses >50% with inspiration. PERICARDIAL EFFUSION There is no pericardial effusion. There is no pleural effusion. <Conclusion> The estimated ejection fraction is 55-60% The left ventricular diastolic function is not assessed due to underlying Atrial fibrillation. The left atrium is moderate to severely dilated. Mild aortic regurgitation is present. There is trace tricuspid valve regurgitation noted. RVSP is calculated at 35 mm Hg.
[2018-08-20] MEDS: Pravastatin Sodium 20 MG TAB PO SCH (21:03)
--- NOTE | 2018-08-21 01:35 | PN ---
DATE: 08/20/2018 DAILY PROGRESS NOTE SUBJECTIVE: The patient is seen today, 08/20/2018. He is not in any cardiopulmonary distress. PHYSICAL EXAMINATION: VITAL SIGNS: Blood pressure 105/57, temperature 98.1, respiratory rate 18, pulse 53. HEENT: Pupils equal and reactive to light. Normal appearing mucosa of the conjunctivae, oropharynx, and nasal membrane mucosa. NECK: Supple. No JVD. No carotid bruits. No lymph nodes. No thyromegaly. CHEST AND LUNGS: Bilateral and symmetrical expansion. Good air exchange. No rales. No rhonchi. CARDIOVASCULAR SYSTEM: PMI not localized. S1 and S2. No additional sounds. ABDOMEN: Normoactive bowel sounds. No tenderness. No organomegaly. No masses. EXTREMITIES: No cyanosis. No clubbing. No edema. CENTRAL NERVOUS SYSTEM: Alert, awake, and oriented x2. Right-sided hemiparesis. ASSESSMENT: Chest pain, myocardial infarction was ruled out; hypertension; type 2 diabetes mellitus; atrial fibrillation; cerebrovascular accident with right-sided weakness. PLAN: Physical therapy. Medical management. Plan [facility]
--- NOTE | 2018-08-21 10:11 | CP.PCM.PN ---
Subjective - Date & Time of Evaluation Date of Evaluation: 08/21/18 Time of Evaluation: 08:30 - Subjective Subjective: NO CHEST PAIN OR SOB Objective - Vital Signs/Intake and Output Vital Signs (last 24 hours): Temp Pulse Resp BP Pulse Ox 97.9 F 47 L 20 142/63 98 08/21/18 08:22 08/21/18 08:58 08/21/18 08:22 08/21/18 08:22 08/21/18 08:22 - Medications Medications: Current Medications Amlodipine Besylate (Norvasc) 5 mg PO Q12 [facility] Last Admin: 08/20/18 21:04 Dose: Not Given Aspirin (Ecotrin) 81 mg PO DAILY [facility] Last Admin: 08/20/18 09:25 Dose: 81 mg Dabigatran (Pradaxa) 150 mg PO Q12 [facility]; Protocol Last Admin: 08/20/18 21:04 Dose: 150 mg Ergocalciferol (Drisdol 50,000 Intl Units Cap) 1 cap PO MO [facility] Last Admin: 08/20/18 00:30 Dose: 1 cap Escitalopram Oxalate (Lexapro) 10 mg PO HS [facility] Last Admin: 08/20/18 21:03 Dose: 10 mg Losartan Potassium (Cozaar) 100 mg PO DAILY [facility] Last Admin: 08/20/18 09:28 Dose: Not Given Pravastatin Sodium (Pravachol) 20 mg PO HS [facility] Last Admin: 08/20/18 21:03 Dose: 20 mg Tamsulosin HCl (Flomax) 0.4 mg PO DAILY [facility] Last Admin: 08/20/18 09:25 Dose: 0.4 mg - Labs Labs: 08/18/18 17:00 08/18/18 17:00 PT 17.3 Seconds (9.8-13.1) H 08/18/18 17:00 INR 1.5 08/18/18 17:00 APTT 59.5 Seconds (25.6-37.1) H 08/18/18 17:00 - Respiratory Exam Respiratory Exam: Clear to Ausculation Bilateral - Cardiovascular Exam Cardiovascular Exam: Irregular Rhythm, +S1, +S2 - Extremities Exam Additional comments: NO LE EDEMA - Additional Findings Additional findings: 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
[2018-08-21] MEDS: Pravastatin Sodium 20 MG TAB PO SCH (21:13)
--- NOTE | 2018-08-22 01:09 | PN ---
DATE: 08/21/2018 SUBJECTIVE: The patient is seen today 08/21/2018. He is not in any cardiopulmonary distress. The patient denied to have any chest pain. PHYSICAL EXAMINATION: VITAL SIGNS: Blood pressure 132/59, temperature 98.2, respiratory rate 18, pulse 54. HEENT: Pupils equal and reactive to light. NECK: Supple. No JVD. No carotid bruits. No lymph nodes. No thyromegaly. CHEST AND LUNGS: Bilateral symmetrical expansion. Good air exchange. No rales. No rhonchi. CARDIOVASCULAR SYSTEM: PMI not localized. S1 and S2, irregularly irregular. ABDOMEN: Normoactive bowel sounds. No tenderness. No organomegaly. No masses. EXTREMITIES: No cyanosis. No clubbing. No edema. CENTRAL NERVOUS SYSTEM: Alert, awake, and oriented x2. Right-sided hemiparesis. ASSESSMENT: 1. Chest pain, myocardial infarction was ruled out; the patient was for a stress test today, we will follow the results and discuss with Dr. Suresh. 2. Cerebrovascular accident with right-sided hemipareses. 3. Type 2 diabetes mellitus. 4. Hypertension. PLAN: Continue current management and follow the results of the stress test with Dr. Suresh. Itzel Hernández MD
[2018-08-22 08:13] VITALS: RESP 20; O2SAT 100
--- NOTE | 2018-08-22 10:15 | CP.PCM.PN ---
Subjective - Date & Time of Evaluation Date of Evaluation: 08/22/18 Time of Evaluation: 09:30 - Subjective Subjective: NO CHEST PAIN OR SOB Objective - Vital Signs/Intake and Output Vital Signs (last 24 hours): Temp Pulse Resp BP Pulse Ox 98.3 F 51 L 20 126/57 L 100 08/22/18 08:00 08/22/18 08:26 08/22/18 08:00 08/22/18 08:26 08/22/18 08:00 - Medications Medications: Current Medications Amlodipine Besylate (Norvasc) 5 mg PO Q12 [facility] Last Admin: 08/22/18 08:26 Dose: Not Given Aspirin (Ecotrin) 81 mg PO DAILY [facility] Last Admin: 08/22/18 08:26 Dose: 81 mg Dabigatran (Pradaxa) 150 mg PO Q12 [facility]; Protocol Last Admin: 08/22/18 08:26 Dose: 150 mg Ergocalciferol (Drisdol 50,000 Intl Units Cap) 1 cap PO MO [facility] Last Admin: 08/20/18 00:30 Dose: 1 cap Escitalopram Oxalate (Lexapro) 10 mg PO HS [facility] Last Admin: 08/21/18 21:13 Dose: 10 mg Losartan Potassium (Cozaar) 100 mg PO DAILY [facility] Last Admin: 08/22/18 08:25 Dose: Not Given Pravastatin Sodium (Pravachol) 20 mg PO HS [facility] Last Admin: 08/21/18 21:13 Dose: 20 mg Tamsulosin HCl (Flomax) 0.4 mg PO DAILY [facility] Last Admin: 08/22/18 08:26 Dose: 0.4 mg - Labs Labs: 08/18/18 17:00 08/18/18 17:00 PT 17.3 Seconds (9.8-13.1) H 08/18/18 17:00 INR 1.5 08/18/18 17:00 APTT 59.5 Seconds (25.6-37.1) H 08/18/18 17:00 - Respiratory Exam Respiratory Exam: Clear to Ausculation Bilateral - Cardiovascular Exam Cardiovascular Exam: Irregular Rhythm, +S1, +S2 - Extremities Exam Additional comments: NO LE EDEMA - Additional Findings Additional findings: CHRONIC ATRIAL FIBRILLATION HYPERTENSION HYPERLIPIDEMIA OLD CVA HISTORY OF CHEST PAIN Assessment and Plan - Assessment and Plan (Free Text) Plan: THE CARDIOLOGOGY DEPARTMENT DIDN'T DO THE STRESS TEST YESTERDAY BECAUSE OF THE DEMENTIA THEY DIDN'T THINK THE PATIENT COULD GIVE CONSENT CONTINUE PRESENT TREATMENT WITH LOSARTAN, ASPIRIN, AMLODIPINE, PRAVACHOL AND PRADAXA
[2018-08-22 12:39] VITALS: BP 121/64; PULSE 65; TEMP 97.9
--- NOTE | 2018-08-22 20:30 | PQF ---
PROVIDER RESPONSE TEXT: Likely musculoskeletal chest pain. REVIEWER QUERY TEXT: Documentation Clarification Your help is requested in clarifying the following clinical documentation, if you can please further specify in the medical record and discharge summary cause or source of pt's chest pain if known. The patient's Clinical Indicators include: chest pain Query created by: Tiffany Webb on 08/22/2018 4:48 PM Electronically signed by: Itzel Hernández MD 08/22/2018 8:26 PM
--- NOTE | 2018-08-23 03:34 | DS ---
REASON FOR ADMISSION: This is an 88-year-old male with history of multiple medical problems, was admitted for chest pain. COURSE OF HOSPITALIZATION: The patient was admitted to telemetry floor, and myocardial infarction was ruled out by negative cardiac enzymes. The patient had a cardiology consultation done by Dr. Suresh. The patient did not have any further chest pain while he was in the hospital, and he refused to have a stress test. The patient was continued on his medications and was discharged to subacute rehabilitation to continue current medications and to have a followup with Cardiology as an outpatient. FINAL DIAGNOSES: Chest pain, likely musculoskeletal, myocardial infarction was ruled out; hypertension; atrial fibrillation, on anticoagulation; cerebrovascular accident with right-sided hemiparesis. [facility] MD Edgar
== END 2018-08-22 14:08 | DRG 309 ==
LOC: H.ER 15:45 → H.ERHOLD 18:30 → H.TEL 22:36
PROVIDERS: ADMIT Internal Medicine; ATTEND Internal Medicine
DX: I48.2 Chronic atrial fibrillation (principal); I69.351 Hemiplegia and hemiparesis following cerebral infarction affecting right dominant side; I10 Essential (primary) hypertension; E78.5 Hyperlipidemia, unspecified; E11.9 Type 2 diabetes mellitus without complications; F03.90 Unspecified dementia, unspecified severity, without behavioral disturbance, psychotic disturbance, mood disturbance, and anxiety; R07.89 Other chest pain; E78.00 Pure hypercholesterolemia, unspecified; Z79.01 Long term (current) use of anticoagulants

== ENCOUNTER 2018-11-28 16:58 | Inpatient (IN) | payer OTHER ==
[2018-11-28 17:23] VITALS: BMI 25.7
[2018-11-28] MEDS ORDERED: Sodium Chloride 0.9% 500 ML IV STA (17:42)
--- NOTE | 2018-11-28 17:46 | ED PDOC ---
Lower Extremity Pain/Injury Time Seen by Provider: 11/28/18 17:19 Chief Complaint (Nursing): Lower Extremity Problem/Injury Chief Complaint (Provider): Fall History Per: Patient, Family History/Exam Limitations: no limitations Onset/Duration Of Symptoms: Days (last night) Additional Complaint(s): Pt. fell when getting out of bed at 2am. Unclear if he got dizzy and fell. Pt. lives alone. Has pain to the left frontal head, righ shoulder and hand, and lower back. No numbness, tingles, weakness, chest pain, dyspnea, cough. No abd pain, nausea, vomit. Is on pradaxa. Dr. Hernández pcp. Has stroke with right arm weakness. Past Medical History Reviewed: Nursing Documentation, Vital Signs Vital Signs: Last Vital Signs Temp 98.7 F 11/28/18 17:17 Pulse 75 11/28/18 17:17 Resp 18 11/28/18 17:17 BP 133/78 11/28/18 17:17 Pulse Ox 100 11/28/18 17:17 - Medical History PMH: Atrial Fibrillation, Cardia Arrhythmia (A-FIB), CVA (R arm weakness), HTN, Hypercholesterolemia, Peripheral Edema Denies: HIV, Chronic Kidney Disease - Family History Family History: States: Unknown Family Hx - Living Arrangements Living Arrangements: Alone - Immunization History Hx Tetanus Toxoid Vaccination: No Hx Influenza Vaccination: No Hx Pneumococcal Vaccination: No - Home Medications Home Medications: Ambulatory Orders Medication Instructions Recorded Aspirin [Ecotrin] 81 mg PO DAILY 07/30/18 Dabigatran [Pradaxa] 150 mg PO Q12 07/30/18 Ergocalciferol (Vitamin D2) 50,000 unit PO MO 07/30/18 [Vitamin D2] Losartan [Cozaar] 100 mg PO DAILY 07/30/18 Pravastatin Sodium [Pravachol] 20 mg PO HS 07/30/18 Tamsulosin [Flomax] 0.4 mg PO DAILY 07/30/18 amLODIPine [Norvasc] 5 mg PO Q12 07/30/18 Escitalopram [Lexapro] 10 mg PO HS tab 08/06/18 Acetaminophen [Tylenol 325mg tab] 2 tab PO Q4 PRN 10/10/18 Magnesium Hydroxide [Milk Of 30 ml PO Q4 PRN 10/10/18 Magnesia] Mylanta 30 ml PO Q4 PRN 10/10/18 - Allergies Allergies/Adverse Reactions: Allergies Allergy/AdvReac Type Severity Reaction Status Date / Time No Known Allergies Allergy Unverified 11/28/18 17:19 Review of Systems ROS Statement: Except As Marked, All Systems Reviewed And Found Negative Musculoskeletal: Positive for: Shoulder Pain, Back Pain, Hand Pain Neurological: Positive for: Headache, Dizziness Physical Exam - Reviewed Nursing Documentation Reviewed: Yes Vital Signs Reviewed: Yes - Physical Exam Appears: Positive for: Non-toxic, No Acute Distress Head Exam: Positive for: ATRAUMATIC, NORMAL INSPECTION, NORMOCEPHALIC Skin: Positive for: Normal Color, Warm, DRY Eye Exam: Positive for: EOMI, Normal appearance, PERRL ENT: Positive for: Normal ENT Inspection Neck: Positive for: Normal, Painless ROM, Supple Cardiovascular/Chest: Positive for: Regular Rate, Rhythm. Negative for: Edema Respiratory: Positive for: CNT, Normal Breath Sounds Gastrointestinal/Abdominal: Positive for: Normal Exam, Soft. Negative for: Tenderness Back: Positive for: Other (mild tender across lower). 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 Negative for: Aphasia, Facial Droop - Laboratory Results Result Diagrams: 11/28/18 18:03 11/28/18 18:03 Lab Results: 12.3 wbc - ECG ECG: Positive for: Interpreted By Me, Viewed By Fl ECG Rhythm: Positive for: Atrial Fibrillation O2 Sat by Pulse Oximetry: 100 Pulse Ox Interpretation: Normal - Radiology X-Ray: Interpreted by Me, Viewed By Fl X-Ray Interpretation: No Acute Disease - CT Scan/US ct Other Rad Studies (CT/US): Read By Radiologist Other Rad Interpretation: no acute - Progress ED Course And Treament: 2135: Spoke with Dr. Hernández. Will admit tele obs for head injury eval and monitoring. Pt. on pradaxa. Risk of delayed bleed. AAOx3. Disposition - Clinical Impression Clinical Impression: Head injury, Dizziness - Patient ED Disposition Is Patient to be Admitted: Yes Counseled Patient/Family Regarding: Studies Performed, Diagnosis - Disposition Disposition Time: 21:39 Condition: FAIR - Pt Status Changed To: Hospital Disposition Of: Observation - POA Present On Arrival: Falls Or Trauma
[2018-11-28 18:08] LABS: BASO % 0.4 % (0.0-2.0); EOS # 0.5 K/uL (0.0-0.7); EOS % 3.7 % (0.0-4.0); HEMOGLOBIN 12.6 g/dL (12.0-18.0); LYMPH # 1.5 K/uL (1.0-4.3); LYMPH % 12.2 % (20.0-40.0); MEAN CORPUSCULAR HEMOGLOBIN 36.4 pg (27.0-31.0); MEAN CORPUSCULAR HGB CONC 33.7 g/dL (33.0-37.0); MEAN PLATELET VOLUME 6.9 fl (7.2-11.7); MONO # 1.1 K/uL (0.0-0.8); MONO % 8.8 % (0.0-10.0); NEUT # 9.2 K/uL (1.8-7.0); NEUT % 74.9 % (50.0-75.0); RBC 3.46 Mil/uL (4.40-5.90); RED CELL DISTRIBUTION WIDTH 13.2 % (11.5-14.5); WHITE BLOOD COUNT 12.3 K/uL (4.8-10.8)
[2018-11-28 18:33] LABS: INR 1.5; PROTHROMBIN TIME 17.5 Seconds (9.8-13.1)
[2018-11-28 18:36] LABS: PARTIAL THROMBOPLASTIN TIME 78.3 Seconds (25.6-37.1)
--- NOTE | 2018-11-28 18:40 | CT ---
Date of service: 11/28/2018 PROCEDURE: CT HEAD WITHOUT CONTRAST. HISTORY: headache COMPARISON: Chest radiograph dated 11/22/2009. TECHNIQUE: Axial computed tomography images were obtained through the head/brain without intravenous contrast. Radiation dose: Total exam DLP = 1160.79 mGy-cm. This CT exam was performed using one or more of the following dose reduction techniques: Automated exposure control, adjustment of the mA and/or kV according to patient size, and/or use of iterative reconstruction technique. FINDINGS: HEMORRHAGE: No intracranial hemorrhage. BRAIN: No mass effect or edema. Left frontal encephalomalacia. Atrophy. Chronic microvascular ischemic changes. Bilateral basal ganglia lacunar infarctions. VENTRICLES: Unremarkable. No hydrocephalus. CALVARIUM: Unremarkable. PARANASAL SINUSES: Unremarkable as visualized. No significant inflammatory changes. MASTOID AIR CELLS: Unremarkable as visualized. No inflammatory changes. OTHER FINDINGS: None. IMPRESSION: No acute intracranial pathology. Left frontal encephalomalacia. Age-related changes.
[2018-11-28 18:43] LABS: ALB/GLOB RATIO 1.1 (1.0-2.1); ALBUMIN 4.2 g/dL (3.5-5.0); BLOOD UREA NITROGEN 22 mg/dl (9-20); CALCIUM 9.2 mg/dL (8.4-10.2); GFR NON-AFRICAN AMERICAN 52
--- NOTE | 2018-11-28 18:46 | CT ---
Date of service: 11/28/2018 PROCEDURE: CT Cervical Spine without contrast HISTORY: neck pain COMPARISON: None available. TECHNIQUE: Axial computed tomography images were obtained of the cervical spine without the use of intravenous contrast. Coronal and sagittal reformatted images were created and reviewed. Radiation dose: Total exam DLP = 474.9 mGy-cm. This CT exam was performed using one or more of the following dose reduction techniques: Automated exposure control, adjustment of the mA and/or kV according to patient size, and/or use of iterative reconstruction technique. FINDINGS: VERTEBRAE: No fracture. Normal alignment. No destructive bony lesion. DISCS/SPINAL CANAL/NEURAL FORAMINA: Multilevel disc space narrowing with fusion of multiple levels with large posterior disc osteophyte complexes causing severe spinal canal stenosis from C5-C7 with multiple levels of moderate to severe neural foraminal stenosis. PARASPINAL SOFT TISSUES: Unremarkable. OTHER FINDINGS: None. IMPRESSION: No acute fracture. Multilevel degenerative changes with severe central canal stenosis from C5-7 with multiple levels of moderate to severe neural foraminal stenosis.
[2018-11-28 18:47] LABS: ALT/SGPT 22 U/L (21-72); AST/SGOT 46 U/L (17-59)
[2018-11-29] MEDS ORDERED: Magnesium Hydroxide Susp 30 ml UD PO PRN (06:10)
--- NOTE | 2018-11-29 08:34 | RAD ---
Date of service: 11/28/2018 HISTORY: fall COMPARISON: Frontal chest radiograph 08/18/2018. FINDINGS: LUNGS: No active pulmonary disease. PLEURA: No significant pleural effusion identified, no pneumothorax apparent. CARDIOVASCULAR: No aortic atherosclerotic calcification present. Normal cardiac size. No pulmonary vascular congestion. OSSEOUS STRUCTURES: No significant abnormalities. VISUALIZED UPPER ABDOMEN: Normal. OTHER FINDINGS: None. IMPRESSION: No interval acute cardiopulmonary disease appreciated.
--- NOTE | 2018-11-29 08:40 | RAD ---
Date of service: 11/28/2018 PROCEDURE: Radiographs of the Lumbar Spine. HISTORY: back pain COMPARISON: No prior. FINDINGS: BONES: Cross-table lateral projection is limited due body habitus. Patient's arms also obscure upper lumbar spine. L2 through S1 appear unremarkable in alignment. No definite fracture is identified affecting these vertebral bodies. Gross spondylosis affects L4-5 anteriorly and mildly posteriorly with lesser spondylosis at the L3-4 and L5-S1 levels. No scoliotic deformity appreciable. DISC SPACES: Unremarkable. OTHER FINDINGS: None. IMPRESSION: Limited exam due to cross-table lateral technique as discussed above. No definite fracture from L2-S1 or spondylolisthesis. Multilevel spondylosis identified seen worst at L4-5.
--- NOTE | 2018-11-29 08:41 | RAD ---
Date of service: 11/28/2018 PROCEDURE: Radiographs of the Right Shoulder HISTORY: shoulder pain COMPARISON: No prior. FINDINGS: BONES: No acute fracture or destructive bony lesion identified. JOINTS: Moderate degenerative changes glenohumeral and acromioclavicular joints. No subluxation or dislocation. SOFT TISSUES: Normal. OTHER FINDINGS: None. IMPRESSION: No acute fracture dislocation right shoulder. Degenerative changes appear moderate at both acromioclavicular and glenohumeral joints.
--- NOTE | 2018-11-29 08:45 | RAD ---
PROCEDURE: Right Hand Radiographs. HISTORY: pain COMPARISON: None. FINDINGS: BONES: There is a questionable deformity of the base of the 5th metacarpal bone may reflect chronic fracture. Clinically correlate further. Diffuse osteopenia may reflect osteoporosis which could obscure the ability to differentiate between acute and chronic fractures, particularly acute impacted fractures. JOINTS: Degenerative cortical sclerosis seen throughout the interphalangeal joints and the joints of the wrist compatible degenerative joint disease on a mild basis. SOFT TISSUES: Normal. OTHER FINDINGS: None. IMPRESSION: Potential chronic fracture at the base of the right 5th metacarpal bone though this is not definite. Diffuse osteopenia suggests osteoporosis. Clinically correlate. If pain is at the right 5th metacarpal region, particularly proximally, then consider possible follow-up CT for added characterization. PA review added.
[2018-11-29] MEDS: Insulin Lispro (humaLOG) 100 Units/ml Inj SC SCH ×3 (13:21→23:04)
--- NOTE | 2018-11-29 13:24 | CP.PCM.CON ---
History of Present Illness - History of Present Illness History of Present Illness: Neurology Consultation Note: Consult requested by Dr. Hernández Mr. Jose Fletcher is an 88-year-old man with a past medical history of atrial fibrillation (on Pradaxa), HTN, HLD, who presented for right side weakness. CT scan of the head showed a some subacute, but mostly chronic left frontal lobe ischemic stroke. The patient states that he has noticed his speech is also different and he has been falling more. He usually walks with a cane. He is not sure when this all started, but it is different from the stroke he had 8 years ago. Review of Systems - Constitutional Constitutional: As Per HPI - EENT Eyes: absent: As Per HPI, Blind Spots, Blurred Vision, Change in Vision, Decreased Night Vision, Diplopia, Discharge, Dry Eye, Exophthalmos, Floaters, Irritation, Itchy Eyes, Loss of Peripheral Vision, Pain, Photophobia, Requires Corrective Lenses, Sees Flashes, Spots in Vision, Tunnel Vision, Other Visual Disturbances, Loss of Vision, Other Ears: absent: As Per HPI, Decreased Hearing, Ear Discharge, Ear Pain, Tinnitus, Abnormal Hearing, Disequilibrium, Dizziness, Other Nose/Mouth/Throat: absent: As Per HPI, Epistaxis, Nasal Congestion, Nasal Discharge, Nasal Obstruction, Nasal Trauma, Nose Pain, Post Nasal Drip, Sinus Pain, Sinus Pressure, Bleeding Gums, Change in Voice, Dental Pain, Dry Mouth, Dysphagia, Halitosis, Hoarsness, Lip Swelling, Mouth Lesions, Mouth Pain, Odynophagia, Sore Throat, Throat Swelling, Tongue Swelling, Facial Pain, Neck Pain, Neck Mass, Other - Cardiovascular Cardiovascular: absent: As Per HPI, Acrocyanosis, Chest Pain, Chest Pain at Rest, Chest Pain with Activity, Claudication, Diaphoresis, Dyspnea, Dyspnea on Exertion, Edema, Irregular Heart Rhythm, Pain Radiating to Arm/Neck/Jaw, Leg Edema, Leg Ulcers, Lightheadedness, Orthopnea, Palpitations, Paroxysmal Nocturnal Dyspnea, Pedal Edema, Radiating Pain, Rapid Heart Rate, Slow Heart Rate, Syncope, Other - Respiratory Respiratory: absent: As Per HPI, Cough, Dyspnea, Hemoptysis, Dyspnea on Exertion, Wheezing, Snoring, Stridor, Pain on Inspiration, Chest Congestion, Excessive Mucous Production, Change in Mucous Color, Pain with Coughing, Other - Gastrointestinal Gastrointestinal: absent: As Per HPI, Abdominal Pain, Belching, Bloating, Change in Bowel Habits, Change in Stool Character, Coffee Ground Emesis, Constipation, Cramping, Diarrhea, Dyspepsia, Dysphagia, Early Satiety, Excessive Flatus, Fecal Incontinence, Heartburn, Hematemesis, Hematochezia, Loose Stools, Melena, Nausea, Odynophagia, Temesmus, Vomiting, Other - Musculoskeletal Musculoskeletal: absent: As Per HPI, Abnormal Gait, Arthralgias, Atrophy, Back Pain, Deformity, Joint Swelling, Limited Range of Motion, Loss of Height, Muscle Cramps, Muscle Weakness, Myalgias, Neck Pain, Numbness, Radiating Pain into Limb, Stiffness, Tingling, Other - Integumentary Integumentary: absent: As Per HPI, Acne, Alopecia, Bleeding Lesions, Change in Hair, Change in Nails, Change in Pigmentation, Changing Lesions, Dry Skin, Erythema, Furuncle, Hirsutism, Lesions, New Lesions, Non-Healing Lesions, Photosensitivity, Pruritus, Rash, Skin Pain, Skin Ulcer, Sores, Striae, Swelling, Unusual Bruising, Wounds, Jaundice, Other - Neurological Neurological: As Per HPI - Psychiatric Psychiatric: absent: As Per HPI, Abnormal Sleep Pattern, Anhedonia, Anxiety, Auditory Hallucinations, Behavioral Changes, Change in Appetite, Change in Libido, Confusion, Depression, Difficulty Concentrating, Hallucinations, Homicidal Ideation, Hopelessness, Irritability, Memory Loss, Mood Swings, Panic Attacks, Paranoia, Suicidal Ideation, Visual Hallucinations, Tactile Hallucinations, Other - Endocrine Endocrine: absent: As Per HPI, Change in Body Appearance, Change in Libido, Cold Intolorance, Deepening of Voice, Excessive Sweating, Fatigue, Flushing, Heat Intolorance, Increase in Ring/Shoe/Hat Size, Palpitations, Polydipsia, Polyphagia, Polyuria, Other - Hematologic/Lymphatic Hematologic: absent: As Per HPI, Easy Bleeding, Easy Bruising, Lymphadenopathy, Other Past Patient History - Past Medical History & Family History Past Medical History?: Yes - Past Social History Smoking Status: Never Smoked - CARDIAC Hx Cardiac Disorders: Yes Hx Angina: No Hx Atrial Fibrillation: Yes Hx Congestive Heart Failure: No Hx Heart Attack: No Hx Heart Murmur: No Hx Hypercholesterolemia: Yes Hx Hypertension: Yes Hx Peripheral Edema: Yes - PULMONARY Hx Respiratory Disorders: No Hx Asthma: No Hx Bronchitis: No Hx Chronic Obstructive Pulmonary Disease (COPD): No Hx Emphysema: No Hx Lung Cancer: No Hx Pneumonia: No Hx Pulmonary Edema: No Hx Pulmonary Embolism: No Hx Respiratory Aspiration: No Hx Respiratory Tract Infection: No Hx Sleep Apnea: No Hx Tuberculosis: No - NEUROLOGICAL Hx Neurological Disorder: Yes (cva) Hx Alzheimer's Disease: No HX Cerebrovascular Accident: Yes Hx Dementia: No Hx Dizziness: Yes Hx Meningitis: No Hx Migraine: No Hx Multiple Sclerosis: No Hx Paralysis: No Hx Parkinson's Disease: No Hx Seizures: No Hx Syncope: No Hx Transient Ischemic Attacks (TIA): No Hx Vertigo: No - HEENT Hx HEENT Problems: No Hx Blind: No Hx Cataracts: No Hx Deafness: No Hx Difficulty Chewing: No Hx Epistaxis: No Hx Glaucoma: No Hx Macular Degeneration: No Hx Sinusitis: No - RENAL Hx Chronic Kidney Disease: No Hx Dialysis: No Hx Kidney Stones: No Hx Neurogenic Bladder: No Hx Pyelonephritis: No Hx Renal (Kidney) Cancer: No Hx Renal Failure: No - ENDOCRINE/METABOLIC Hx Endocrine Disorders: Yes (dm) Hx Adrenal Cancer: No Hx Diabetes Insipidus: No Hx Diabetes Mellitus Type 1: No Hx Diabetes Mellitus Type 2: Yes Hx Hyperthyroidism: No Hx Hypothyroidism: No Hx Systemic Lupus Erythematosus: No - HEMATOLOGICAL/ONCOLOGICAL Hx Blood Disorders: No Hx AIDS: No Hx Anemia: No Hx Blood Transfusions: No Hx Blood Transfusion Reaction: No Hx Bruising: No Hx Cancer: No Hx Hepatitis A: No Hx Hepatitis B: No Hx Hepatitis C: No Hx Human Immunodeficiency Virus (HIV): No Hx Leukemia: No Hx Metastesis: No Hx Shingles: No - INTEGUMENTARY Hx Dermatological Problems: Yes Hx Basil Cell: No Hx Jean-Baptiste: No Hx Cellulitis: No Hx Eczema: No Hx Melanoma: No Hx Psoriasis: Yes Hx Squamous Cell: No - MUSCULOSKELETAL/RHEUMATOLOGICAL Hx Musculoskeletal Disorders: Yes Hx Arthritis: No Hx Back Pain: No Hx Degenerative Joint Disease: Yes Hx Falls: Yes Hx Fractures: Yes Hx Gout: No Hx Herniated Disk: No Hx Myasthenia Gravis: No Hx Osteoarthritis: No Hx Osteomyelitis: No Hx Osteoporosis: No Hx Rhabdomyolysis: No Hx Rheumatoid Arthritis: No Hx Spinal Stenosis: No Hx Unsteady Gait: Yes - GASTROINTESTINAL Hx Gastrointestinal Disorders: No Hx Bowel Surgery: No Hx Clostridium Difficile: No Hx Colitis: No Hx Colostomy: No Hx Constipation: No Hx Crohn's Disease: No Hx Diarrhea: No Hx Diverticulitis: No Hx Esophageal Varices: No Hx Fatty Liver Disease: No Hx Gall Bladder Disease: No Hx Gastritis: No Hx Gastroesophageal Reflux: No Hx Hemorrhoids: No Hx Ileostomy: No Hx Irritable Bowel: No Hx Liver Failure: No Hx Nausea: No Hx Pancreatitis: No HX Swallowing Problems: No Hx Ulcer: No Hx Vomiting: No - GENITOURINARY/GYNECOLOGICAL Hx Genitourinary Disorders: No Hx Bladder Cancer: No Hx Bladder Stone: No Hx Hematuria: No Hx Incontinence: No Hx Prostate Cancer: No Hx Prostate Problems: No Hx Reproductive Disorders: No Hx Sexually Transmitted Disorders: No Hx Urinary Tract Infection: No - PSYCHIATRIC Hx Psychophysiologic Disorder: No Hx Anxiety: No Hx Bipolar Disorder: No Hx Depression: No Hx Emotional Abuse: No Hx Hallucinations: No Hx Panic Symptoms: No Hx Paranoia: No Hx Post Traumatic Stress Disorder: No Hx Psychosis: No Hx Physical Abuse: No Hx Schizophrenia: No Hx Sexual Abuse: No Hx Substance Use: No - SURGICAL HISTORY Hx Surgeries: Yes Hx Cataract Extraction: Yes (dmitry) - ANESTHESIA Hx Anesthesia: Yes Hx Anesthesia Reactions: No Hx Malignant Hyperthermia: No Has any member of the family had a problem w/ anesthesia?: No Meds Allergies/Adverse Reactions: Allergies Allergy/AdvReac Type Severity Reaction Status Date / Time No Known Allergies Allergy Unverified 11/28/18 17:19 - Medications Medications: Current Medications Aspirin (Ecotrin) 81 mg PO DAILY [facility] Last Admin: 11/29/18 09:50 Dose: 81 mg Dabigatran (Pradaxa) 150 mg PO Q12 [facility]; Protocol Last Admin: 11/29/18 09:51 Dose: 150 mg Ergocalciferol (Drisdol 50,000 Intl Units Cap) 1 cap PO MO [facility] Escitalopram Oxalate (Lexapro) 10 mg PO HS [facility] Insulin Human Lispro (Humalog) 0 units SC Q6 [facility]; Protocol Last Admin: 11/29/18 13:21 Dose: Not Given Losartan Potassium (Cozaar) 100 mg PO DAILY [facility] Magnesium Hydroxide (Milk Of Magnesia) 30 ml PO Q4 PRN PRN Reason: Constipation Pravastatin Sodium (Pravachol) 20 mg PO HS [facility] Physical Exam - Constitutional Appears: Chronically Ill - Head Exam Head Exam: ATRAUMATIC, NORMAL INSPECTION, NORMOCEPHALIC - Eye Exam Eye Exam: EOMI, Normal appearance, PERRL - ENT Exam ENT Exam: Mucous Membranes Moist, Normal Exam - Neck Exam Neck exam: Positive for: Normal Inspection - Respiratory Exam Respiratory Exam: Clear to Auscultation Bilateral, NORMAL BREATHING PATTERN - Cardiovascular Exam Cardiovascular Exam: REGULAR RHYTHM, +S1, +S2 - GI/Abdominal Exam GI & Abdominal Exam: Normal Bowel Sounds, Soft. absent: Tenderness - Rectal Exam Rectal Exam: Deferred - Extremities Exam Extremities exam: Positive for: normal inspection - Back Exam Back exam: NORMAL INSPECTION - Neurological Exam Neurological exam: Abnormal Gait, Alert, CN II-XII Intact, Oriented x3 Additional comments: Reflexes brisk on the right side with upgoing plantar responses. Strength is 3/5 distally and proximally on the right side lower extremity and 4/5 proximally and distally on the left side. Right upper extremity is 3/5 distally, and 2/5 proximally. Left upper extremity is 4/5 throughout. Sensation is intact throughout. Coordination is intact on the right. Results - Vital Signs Recent Vital Signs: Last Vital Signs Temp 98.7 F 11/29/18 12:05 Pulse 67 11/29/18 12:05 Resp 18 11/29/18 12:05 BP 151/56 H 11/29/18 12:05 Pulse Ox 100 11/29/18 12:05 - Labs Result Diagrams: 11/28/18 18:03 11/28/18 18:03 Labs: Laboratory Results - last 24 hr 11/28/18 11/28/18 11/28/18 18:03 18:03 18:03 WBC 12.3 H RBC 3.46 L Hgb 12.6 Hct 37.3 MCV 108.0 H D MCH 36.4 H MCHC 33.7 RDW 13.2 Plt Count 329 D MPV 6.9 L Neut % (Auto) 74.9 Lymph % (Auto) 12.2 L [place] % (Auto) 8.8 Eos % (Auto) 3.7 Baso % (Auto) 0.4 Neut # (Auto) 9.2 H Lymph # (Auto) 1.5 [place] # (Auto) 1.1 H Eos # (Auto) 0.5 Baso # (Auto) 0.0 PT 17.5 H INR 1.5 APTT 78.3 H Sodium 139 Potassium 4.4 Chloride 109 H Carbon Dioxide 21 L Anion Gap 13 BUN 22 H Creatinine 1.3 Est GFR ( Amer) > 60 Est GFR (Non-Af Amer) 52 POC Glucose (mg/dL) Random Glucose 105 Calcium 9.2 Total Bilirubin 0.5 AST 46 ALT 22 Alkaline Phosphatase 96 Troponin I 0.0160 Total Protein 8.1 Albumin 4.2 Globulin 3.9 Albumin/Globulin Ratio 1.1 11/28/18 11/29/18 11/29/18 19:28 06:22 11:51 WBC RBC Hgb Hct MCV MCH MCHC RDW Plt Count MPV Neut % (Auto) Lymph % (Auto) [place] % (Auto) Eos % (Auto) Baso % (Auto) Neut # (Auto) Lymph # (Auto) [place] # (Auto) Eos # (Auto) Baso # (Auto) PT INR APTT Sodium Potassium Chloride Carbon Dioxide Anion Gap BUN Creatinine Est GFR ( Amer) Est GFR (Non-Af Amer) POC Glucose (mg/dL) 113 H 102 96 Random Glucose Calcium Total Bilirubin AST ALT Alkaline Phosphatase Troponin I Total Protein Albumin Globulin Albumin/Globulin Ratio Assessment & Plan (1) Ischemic stroke Assessment and Plan: Based on the patient's previous symptoms and the new progression of symptoms, he may either be having regression of the previous stroke symptoms, or could be having a new ischemic event despite being on Pradaxa. I recommend the followin. Continue close observation with telemetry 2. MRI brain without contrast, MRA brain/neck without contrast 3. Echocardiogram 4. Continue Pradaxa 5. PT/OT eval and treatment 6. Check HbA1c, lipid panel, B12, folate, TSH, vitamin D level 7. Fluids with NS at 100 mL/hr 8. Permissive HTN for the next 24 hours (only treat BP that is higher than 220/110 mm Hg) Thank you for this consultation. Status: Acute
--- NOTE | 2018-11-29 13:28 | RAD ---
Date of service: 11/29/2018 PROCEDURE: Left Knee Radiographs. HISTORY: Pain. COMPARISON: None. FINDINGS: BONES: No acute fracture. Multiple exostoses arising from the tibial diaphysis. JOINTS: Tricompartmental narrowing with degenerative spurring. JOINT EFFUSION: None. OTHER FINDINGS: None. IMPRESSION: No demonstrated fracture or dislocation. Multiple exostoses.
--- NOTE | 2018-11-29 13:56 | CARD ---
APPROVED REPORT Date of service: 11/28/2018 EKG Measurement Heart [id number] <Conclusion> Atrial fibrillation with slow ventricular response with premature ventricular or aberrantly conducted complexes Abnormal ECG
[2018-11-29] MEDS: Lidocaine 5% Patch TD SCH (16:19)
[2018-11-29] MEDS: Sodium Chloride 0.9% 1,000 ML IV SCH (20:43)
[2018-11-29] MEDS: Pravastatin Sodium 20 MG TAB PO SCH (23:05)
--- NOTE | 2018-11-29 23:05 | CON ---
DATE: 11/29/2018 CARDIOLOGY CONSULTATION REASON FOR CONSULTATION: Fall and chronic atrial fibrillation. HISTORY OF PRESENT ILLNESS: The patient is an 88-year-old male who has a history of atrial fibrillation, history of CVA with right hemiparesis. He lives by himself. He sustained a fall while he was trying to leave bed to go to the bathroom. Apparently, the patient was trying to reach into his walker, and he fell down on his right side, which is the paralytic side. The patient denies any dizziness or syncope. The patient denies any prior fall in the past. The patient is unaware of any history of heart attack in the past, and he denies any chest pain. The patient does not report any dizziness or palpitation. SOCIAL HISTORY: The patient is not a smoker. He lives by himself. He is some 10 years ago. He has a son. The patient states the son forgot about me, and he does not know where the son lives. MEDICATIONS: Cozaar 100 mg daily, aspirin 81 mg once a day, Lexapro 10 mg once a day, milk of magnesia 30 mL every 4 hours, Pradaxa 150 mg twice a day, and Pravachol 20 mg at bedtime. REVIEW OF SYSTEMS: No nausea or vomiting. No fever or chills. PHYSICAL EXAMINATION: GENERAL: The patient is an elderly male who does not appear to be in acute distress. VITAL SIGNS: Blood pressure 132/43, heart rate 56, temperature 98.7, and respirations 16. HEENT: No pallor or icterus. NECK: No JVD. CHEST: Clear. HEART: S1 and S2, irregular. ABDOMEN: Soft. EXTREMITIES: No edema. LABORATORY DATA: Hemoglobin and hematocrit 12.6 and 37.3, white count 12.3, platelet count 329,000. INR is 1.5, PTT is 78.3. SMA-7: Sodium 139, potassium 4.4, chloride 109, CO2 of 21, glucose 105, BUN 22, creatinine 1.3. One set of troponin is negative. Knee x-ray: No fracture or dislocation. Shoulder x-ray: No fracture or dislocation. Head CT scan without contrast: No acute intracranial pathology, left frontal encephalomalacia. Lumbar spine x-ray: Limited exam due to technique. No definite fracture from L2/S1 or spondylolysis. Multilevel spondylosis identified, worst at L4-L5. Right hand x-ray revealed potential chronic fascial at the base of the right fifth metacarpal bone though this is not definitely diffuse osteopenia. Consider followup CT scan for its characterization. Echocardiographic study performed in 08/2018 revealed normal ejection fraction, [id number] dilatation of the left atrium, mild aortic insufficiency, and estimated right ventricular systolic pressure of 35 mmHg. ASSESSMENT: 1. Status post fall and questionable chronic fracture of the base of the left fifth metacarpal bone. 2. Chronic atrial fibrillation. The patient is currently in slightly slow atrial fibrillation, and electrocardiogram showed atrial fibrillation with premature ventricular complex versus aberrancy, and the heart rate was 65. 3. Mild aortic insufficiency. 4. Diabetes mellitus and hypertension. RECOMMENDATIONS: Continue Cozaar 100 mg daily, aspirin 81 mg once a day. May reduce dose of Pradaxa to 75 mg twice a day in view of recent fall. Continue Pravachol 20 mg once a day. Obtain TSH level. Chance Knight MD
[2018-11-30] MEDS: Sodium Chloride 0.9% 1,000 ML IV SCH ×2 (05:30→20:03)
--- NOTE | 2018-11-30 06:09 | HP ---
HISTORY OF PRESENT ILLNESS: This is an 88-year-old male with history of multiple medical problems including right-sided hemiplegia, was brought to emergency room after a fall and he was found in the ground by his friend. The patient is living by himself and he was advised many times before that he should not live by himself anymore. The patient admits that he has pain in the left knee. The patient is on Pradaxa also for atrial fibrillation. The patient denied to have any head trauma or loss of consciousness. Other review of systems is positive for right-sided hemiparesis. ALLERGIES: NO KNOWN ALLERGY. MEDICATIONS: Reviewed as per MAR. SOCIAL HISTORY: No history of smoking, EtOH or substance abuse. FAMILY HISTORY: Noncontributory. PHYSICAL EXAMINATION: GENERAL: The patient is in bed, not in any cardiopulmonary distress. VITAL SIGNS: Blood pressure 127/52, temperature 98.2, respiratory rate 18, and pulse 61. HEENT: Pupils equal, reactive to light. Normal-appearing mucosa of the conjunctivae, oropharynx and nasal membrane mucosa. NECK: Supple. No JVD. No carotid bruit. No lymph node. No thyromegaly. CHEST AND LUNGS: Bilateral symmetrical expansion. Good air exchange. No rales, no rhonchi. CARDIOVASCULAR SYSTEM: PMI not localized. S1, S2. No additional sounds. ABDOMEN: Normoactive bowel sounds. No tenderness. No organomegaly. No masses. EXTREMITIES: No cyanosis, no clubbing, no edema. TALENT DIRECTOR: Alert, awake, oriented x2. No neurological deficit could be appreciated except for the right-sided hemiparesis. ASSESSMENT: 1. Fall with left knee pain. 2. Cerebrovascular accident with right-sided hemiparesis. 3. Chronic atrial fibrillation. 4. Hypertension. 5. Type 2 diabetes mellitus. PLAN: Resume the patient's home medications, physical therapy, cardiology and neurology consult, and neuro check every 4 hours. Itzel Hernández MD
[2018-11-30] MEDS: Insulin Lispro (humaLOG) 100 Units/ml Inj SC SCH ×4 (06:49→22:29)
[2018-11-30] MEDS: Lidocaine 5% Patch TD SCH (08:36)
--- NOTE | 2018-11-30 12:10 | CP.PCM.PN ---
Subjective - Date & Time of Evaluation Date of Evaluation: 11/30/18 Time of Evaluation: 12:07 - Subjective Subjective: Neuro Follow-Up Note: Mr. Jose Fletcher was evaluated this morning in the ICU. He was admitted status post fall out of bed with head injury. He denies any dizziness or other symptoms prior to the fall out of bed. Currently on Pradaxa, which has been continued here so far. Pt denies any complaints today; denies h/a, dizziness, visual changes, chest pain, palpitations, sob, cough, abd pain, n/v/d. Objective - Vital Signs/Intake and Output Vital Signs (last 24 hours): Temp Pulse Resp BP Pulse Ox 98.2 F 74 17 133/42 L 99 11/30/18 08:00 11/30/18 08:35 11/30/18 08:00 11/30/18 08:35 11/30/18 08:00 Intake and Output: 11/30/18 11/30/18 06:59 18:59 Intake Total 970 700 Output Total 300 Balance 970 400 - Medications Medications: Current Medications Aspirin (Ecotrin) 81 mg PO DAILY [facility] Last Admin: 11/30/18 08:35 Dose: 81 mg Dabigatran (Pradaxa) 150 mg PO Q12 [facility]; Protocol Last Admin: 11/30/18 08:36 Dose: 150 mg Ergocalciferol (Drisdol 50,000 Intl Units Cap) 1 cap PO MO [facility] Escitalopram Oxalate (Lexapro) 10 mg PO HS [facility] Last Admin: 11/29/18 23:05 Dose: 10 mg Sodium Chloride (Sodium Chloride 0.9%) 1,000 mls @ 100 mls/hr IV .Q10H [facility] Stop: 11/30/18 20:17 Last Admin: 11/30/18 05:30 Dose: 100 mls/hr Insulin Human Lispro (Humalog) 0 units SC Q6 [facility]; Protocol Last Admin: 11/30/18 06:49 Dose: Not Given Lidocaine (Lidoderm) 1 ea TD DAILY [facility] Last Admin: 11/30/18 08:36 Dose: 1 ea Losartan Potassium (Cozaar) 100 mg PO DAILY [facility] Last Admin: 11/30/18 08:35 Dose: 100 mg Magnesium Hydroxide (Milk Of Magnesia) 30 ml PO Q4 PRN PRN Reason: Constipation Pravastatin Sodium (Pravachol) 20 mg PO HS [facility] Last Admin: 11/29/18 23:05 Dose: 20 mg - Labs Labs: 11/28/18 18:03 11/28/18 18:03 PT 17.5 Seconds (9.8-13.1) H 11/28/18 18:03 INR 1.5 11/28/18 18:03 APTT 78.3 Seconds (25.6-37.1) H 11/28/18 18:03 - Constitutional Appears: Well, Non-toxic, No Acute Distress - Head Exam Head Exam: ATRAUMATIC, NORMAL INSPECTION, NORMOCEPHALIC - Eye Exam Eye Exam: EOMI, Normal appearance Pupil Exam: NORMAL ACCOMODATION, PERRL - ENT Exam ENT Exam: Mucous Membranes Moist, Normal Exam - Neck Exam Neck Exam: Full ROM, Normal Inspection - Respiratory Exam Respiratory Exam: NORMAL BREATHING PATTERN - Extremities Exam Extremities Exam: absent: Calf Tenderness, Full ROM, Pedal Edema Additional comments: RUE weakness residual from old CVA - Back Exam Back Exam: Full ROM, NORMAL INSPECTION - Neurological Exam Neurological Exam: Alert, Awake, CN II-XII Intact, Oriented x3 Neuro motor strength exam: Left Upper Extremity: 4 (disk recoater 3/5), Right Upper Extremity: 2/1 (disk recoater 2/5), Left Lower Extremity: 4 (dorsifexion 3/5), Right Lower Extremity: 3 (dorsifexion 3/5) Additional comments: Awake, alert, follows all commands, answers appropriately Speech clear, fluid RUE weakness noted residual from old CVA No sensory deficits No ataxia, no dysmetria to left Gait not assessed - Psychiatric Exam Psychiatric exam: Normal Affect, Normal Mood - Skin Skin Exam: Normal Color Assessment and Plan - Assessment and Plan (Free Text) Assessment: Mr. Jose Fletcher is a 88 y/o M was admitted for a fall out of bed and head injury. Though he denied any symptoms preceding the event, it is possible that he had an acute/subacute ischemic stroke regardless of his Pradaxa use at home, so we are in the process or ruling out a new CVA. -Imaging already completed reviewed. -MRI brain without contrast ordered--will f/u with results. -MRA head/neck without contrast ordered--will f/u with results. -ECHO ordered, pending. -Continue Pradaxa for now. -Continue PT/OT as tolerated -Continue IVFs as ordered. -Continue permissive HTN until this evening (treat only if BP is greater than 220/110 mm HG) -Notify neuro team of any acute changes in condition. Case discussed with Dr. Mario.
--- NOTE | 2018-11-30 14:46 | CARD ---
APPROVED REPORT Date of service: 11/30/2018 EXAM: Two-dimensional and M-mode echocardiogram with Doppler and color Doppler. Other Information Quality : GoodRhythm : Atrial Fibrillation INDICATION [place] 2D DIMENSIONS IVSd0.94 (0.7-1.1cm)LVDd4.50 (3.9-5.9cm) LVOT Diameter1.78 (1.8-2.4cm)PWd0.74 (0.7-1.1cm) IVSs1.06 (0.8-1.2cm)LVDs2.97 (2.5-4.0cm) FS (%) 34.1 %PWs1.22 (0.8-1.2cm) M-Mode DIMENSIONS Left Atrium (MM)4.78 (2.5-4.0cm)IVSd0.98 (0.7-1.1cm) Aortic Root3.32 (2.2-3.7cm)LVDd6.53 (4.0-5.6cm) Aortic Cusp Exc.1.61 (1.5-2.0cm)PWd0.94 (0.7-1.1cm) IVSs1.29 cmFS (%) 29 % LVDs4.61 (2.0-3.8cm)PWs1.08 cm Aortic Valve AoV Peak Whnrykuw536.7cm/sAoV VTI23.5cmAO Peak GR.6mmHg LVOT Peak Ykajzvqt19.2cm/sLVOT VTI18.90cmAO Mean GR.3mmHg JONATHAN (VMAX)0.56qp2WBV (VTI)1.14cm2 Mitral Valve E/A ratio0.0 TDI E/Lateral E'0.0E/Medial E'0.0 Tricuspid Valve TR Peak [id number] [id number] Peak Gr.27mmHg [id number] LEFT VENTRICLE The left ventricle is normal size. There is normal left ventricular wall thickness. The left ventricular systolic function is normal. The estimated ejection fraction is 55-60% No regional wall motion abnormalities noted.. The left ventricular diastolic function cannot be assessed due to underlying atrial fibrillation. No left ventricle thrombus noted on this study. There is no ventricular septal defect visualized. There is no left ventricular aneurysm. There is no mass noted in the left ventricle. RIGHT VENTRICLE The right ventricle is normal size. There is normal right ventricular wall thickness. The right ventricular systolic function is normal. ATRIA The left atrium is moderately dilated. The right atrium size is normal. The interatrial septum is intact with no evidence for an atrial septal defect. AORTIC VALVE The aortic valve is normal in structure. No aortic regurgitation is present. There is no aortic valvular stenosis. There is no aortic valvular vegetation. MITRAL VALVE The mitral valve is normal in structure. There is no evidence of mitral valve prolapse. There is no mitral valve stenosis. There is trace to mild mitral valve regurgitation noted. TRICUSPID VALVE The tricuspid valve is normal in structure. There is mild tricuspid valve regurgitation noted. RVSP is calculated at 31 mm Hg. There is no tricuspid valve prolapse or vegetation. There is no tricuspid valve stenosis. PULMONIC VALVE The pulmonary valve is normal in structure. There is no pulmonic valvular regurgitation. There is no pulmonic valvular stenosis. GREAT VESSELS The aortic root is normal in size. The ascending aorta is normal in size. The pulmonary artery is normal. The IVC is not visualized. PERICARDIAL EFFUSION There is no pericardial effusion. There is no pleural effusion. <Conclusion> The estimated ejection fraction is 55-60% The left ventricular diastolic function cannot be assessed due to underlying atrial fibrillation. The left atrium is moderately dilated. There is trace to mild mitral valve regurgitation noted. There is mild tricuspid valve regurgitation noted. RVSP is calculated at 31 mm Hg. The IVC is not visualized.
--- NOTE | 2018-11-30 21:15 | PN ---
DATE: 11/30/2018 SUBJECTIVE: The patient denies any dizziness. Chest pain is fine. PHYSICAL EXAMINATION: VITAL SIGNS: Blood pressure 148/48, heart rate 55, atrial fibrillation, PVCs versus aberrancy on the monitor, temperature 98.9, respirations 20. HEENT: No pallor or icterus. CHEST: Clear. HEART: S1, S2. Regular. EXTREMITIES: No edema. Right hemiplegia. LABORATORY DATA: Today's blood sugars are 103, 110, and 131. ASSESSMENT: 1. Status post fall. 2. History of cerebrovascular accident with right hemiplegia. 3. Chronic atrial fibrillation. 4. Mild aortic insufficiency. 5. Diabetes mellitus. 6. Hypertension. RECOMMENDATIONS: Continue Cozaar at 100 mg once a day, aspirin 81 mg once a day, Lexapro 10 mg once a day, Pradaxa may be reduced to 75 mg twice a day, Pravachol 20 mg once a day, and normal saline infusion at 100 mL per hour. Chance Knight MD
--- NOTE | 2018-11-30 21:49 | PN ---
DATE: 11/30/2018 SUBJECTIVE: The patient is seen today, 11/30/2018. He is not in any cardiopulmonary distress. PHYSICAL EXAMINATION: VITAL SIGNS: Blood pressure is 148/48, temperature 98.9, respiratory rate 20 and pulse 55. HEENT: Pupils equal, reactive to light. Normal-appearing mucosa of the conjunctivae, oropharynx and nasal membrane mucosa. NECK: Supple. No JVD. No carotid bruit. No lymph node. No thyromegaly. CHEST AND LUNGS: Bilateral symmetrical expansion. Good air exchange. No rales, no rhonchi. CARDIOVASCULAR SYSTEM: PMI not localized. S1, S2, irregularly irregular. ABDOMEN: Normoactive bowel sounds. No tenderness. No organomegaly. No masses. EXTREMITIES: No cyanosis, no clubbing, no edema. 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 The patient has right-sided hemiparesis. ASSESSMENT: Right-sided hemiplegia, cerebrovascular accident, hypertension, type 2 diabetes mellitus, chronic atrial fibrillation, status post fall with injury to left knee, x-ray of the left knee was done and not demonstrated fracture or dislocation. PLAN: Continue current medications and physical therapy to prepare the patient to go home as per his wishes. Itzel Hernández MD
[2018-11-30] MEDS: Pravastatin Sodium 20 MG TAB PO SCH (22:29)
[2018-12-01] MEDS: Insulin Lispro (humaLOG) 100 Units/ml Inj SC SCH ×4 (06:15→21:49)
[2018-12-01] MEDS: Lidocaine 5% Patch TD SCH (09:12)
--- NOTE | 2018-12-01 19:19 | PN ---
DATE: 12/01/2018 SUBJECTIVE: The patient is sitting on the chair. He denies any dizziness or palpitation. One rhythm strip was reported to be heart rate of 37 which revealed atrial fibrillation with PVCs, that was the lowest recorded heart rate. PHYSICAL EXAMINATION: VITAL SIGNS: Blood pressure 132/53, heart rate 55, temperature 98, and respirations 18. HEENT: Normocephalic. CHEST: Clear. HEART: S1, S2. Regular. EXTREMITIES: No edema. LABORATORY DATA: Today's blood sugars are 110 and 90. ASSESSMENT: 1. Chronic atrial fibrillation. 2. Periods of bradycardia. The minimum heart rate recorded so far of 37 beats per minute. The patient denies any dizziness and the patient attributed this on admission to his right-sided weakness and inability to reach his walker. 3. History of cerebrovascular accident with residual right hemiplegia. 4. Mild aortic insufficiency. 5. Hypertension and diabetes mellitus. RECOMMENDATIONS: Continue aspirin 81 mg once a day, Pradaxa 150 mg twice a day, Pravachol 20 mg once a day if there is no recently recorded in the lower 30s or below 30, no pacemaker and the patient can undergo 24 hours Holter monitor as an outpatient. Chance Knight MD
[2018-12-01] MEDS: Pravastatin Sodium 20 MG TAB PO SCH (21:02)
[2018-12-02] MEDS: Insulin Lispro (humaLOG) 100 Units/ml Inj SC SCH ×4 (05:00→21:15)
[2018-12-02] MEDS: Lidocaine 5% Patch TD SCH (09:03)
--- NOTE | 2018-12-02 20:23 | PN ---
DATE: 12/02/2018 SUBJECTIVE: The patient denies any dizziness, palpitation or shortness of breath. Review of the monitor revealed the lowest heart rate was 34 beats per minute and the patient was asymptomatic at that time. PHYSICAL EXAMINATION: VITAL SIGNS: Blood pressure 137/58, heart rate 56, temperature 98.8, and respirations 20. HEENT: No pallor or icterus. NECK: No JVD. CHEST: Clear. HEART: S1 and S2 regular. EXTREMITIES: No edema. LABORATORY DATA: Today's blood sugar is 94. ASSESSMENT: 1. Status post fall, although the patient denied dizziness or fainting, the possibility of postural hypotension does exist, unlikely slow atrial fibrillation has contributed to the patient's fall. 2. History of cerebrovascular accident with residual right hemiplegia. 3. Chronic atrial fibrillation. RECOMMENDATIONS: Continue aspirin 81 mg once a day, Lexapro 10 mg once a day, Pravachol 20 mg once a day, and continue Pradaxa. Consider 24 hours Holter monitor as an outpatient. Chance Knight MD
[2018-12-02] MEDS: Pravastatin Sodium 20 MG TAB PO SCH (21:13)
--- NOTE | 2018-12-03 02:40 | PN ---
DATE: 12/01/2018 This is a late entry for a daily visit on 12/01/2018. SUBJECTIVE: The patient still complaining of left knee pain. PHYSICAL EXAMINATION: VITAL SIGNS: Blood pressure was 148/62, temperature 98.3, respiratory rate 20 and pulse 53. HEENT: Pupils equal, reactive to light. Normal-appearing mucosa of the conjunctivae, oropharynx and nasal membrane mucosa. NECK: Supple. No JVD. No carotid bruit. No lymph node. No thyromegaly. CHEST: Lungs, bilateral symmetrical expansion. Good air exchange. No rales, no rhonchi. CARDIOVASCULAR SYSTEM: PMI not localized. S1, S2. No additional sounds. ABDOMEN: Normoactive bowel sounds. No tenderness or organomegaly. No masses. EXTREMITIES: No cyanosis, no clubbing, no edema. 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 ASSESSMENT: Status post fall, left knee contusion, hypertension, atrial fibrillation. PLAN: Pain management, physical therapy. Continue current medications. [facility] MD Edgar
[2018-12-03] MEDS: Insulin Lispro (humaLOG) 100 Units/ml Inj SC SCH ×4 (04:15→22:00)
[2018-12-03] MEDS: Ergocalciferol 50,000 Intl Units Cap PO SCH (06:33)
[2018-12-03] MEDS: Lidocaine 5% Patch TD SCH (08:56)
--- NOTE | 2018-12-03 11:13 | CP.PCM.PN ---
Subjective - Date & Time of Evaluation Date of Evaluation: 12/03/18 Time of Evaluation: 11:11 - Subjective Subjective: Neuro Follow-Up Note: Mr. Jose Fletcher was evaluated this morning at bedside. He states that he feels great and is looking forward to going home today. He was unable to have the MRI brain and MRA Head and neck done over the weekend. He currently denies any complaints--no h/a, dizziness, visual changes, chest pain, sob, abd pain, n/v/d. Objective - Vital Signs/Intake and Output Vital Signs (last 24 hours): Temp Pulse Resp BP Pulse Ox 97.9 F 47 L 20 140/52 L 98 12/03/18 08:49 12/03/18 09:00 12/03/18 08:49 12/03/18 08:54 12/03/18 08:49 - Medications Medications: Current Medications Aspirin (Ecotrin) 81 mg PO DAILY [facility] Last Admin: 12/03/18 08:55 Dose: 81 mg Dabigatran (Pradaxa) 150 mg PO Q12 [facility]; Protocol Last Admin: 12/03/18 08:55 Dose: 150 mg Ergocalciferol (Drisdol 50,000 Intl Units Cap) 1 cap PO MO [facility] Last Admin: 12/03/18 06:33 Dose: 1 cap Escitalopram Oxalate (Lexapro) 10 mg PO HS [facility] Last Admin: 12/02/18 21:12 Dose: 10 mg Insulin Human Lispro (Humalog) 0 units SC Q6 [facility]; Protocol Last Admin: 12/03/18 04:15 Dose: Not Given Lidocaine (Lidoderm) 1 ea TD DAILY [facility] Last Admin: 12/03/18 08:56 Dose: 1 ea Losartan Potassium (Cozaar) 100 mg PO DAILY [facility] Last Admin: 12/03/18 08:54 Dose: Not Given Magnesium Hydroxide (Milk Of Magnesia) 30 ml PO Q4 PRN PRN Reason: Constipation Pravastatin Sodium (Pravachol) 20 mg PO HS [facility] Last Admin: 12/02/18 21:13 Dose: 20 mg - Labs Labs: 11/28/18 18:03 11/28/18 18:03 PT 17.5 Seconds (9.8-13.1) H 11/28/18 18:03 INR 1.5 11/28/18 18:03 APTT 78.3 Seconds (25.6-37.1) H 11/28/18 18:03 - Constitutional Appears: Well, Non-toxic, No Acute Distress - Head Exam Head Exam: ATRAUMATIC, NORMAL INSPECTION, NORMOCEPHALIC - Eye Exam Eye Exam: EOMI, Normal appearance Pupil Exam: NORMAL ACCOMODATION, PERRL - ENT Exam ENT Exam: Mucous Membranes Moist, Normal Exam - Neck Exam Neck Exam: Full ROM, Normal Inspection - Respiratory Exam Respiratory Exam: NORMAL BREATHING PATTERN - Cardiovascular Exam Cardiovascular Exam: Irregular Rhythm - GI/Abdominal Exam GI & Abdominal Exam: Soft - Extremities Exam Extremities Exam: absent: Calf Tenderness, Full ROM, Pedal Edema Additional comments: RUE weakness 2/2 old cva - Back Exam Back Exam: Full ROM, NORMAL INSPECTION - Neurological Exam Neurological Exam: Alert, Awake, CN II-XII Intact, Oriented x3, Reflexes Normal Neuro motor strength exam: Left Upper Extremity: 5, Right Upper Extremity: 2/1, Left Lower Extremity: 5, Right Lower Extremity: 5 Additional comments: Awake, alert, follows all commands, answers appropriately Speech clear, fluid RUE weakness noted residual from old CVA No sensory deficits No ataxia, no dysmetria to left Gait not assessed - Psychiatric Exam Psychiatric exam: Normal Affect, Normal Mood - Skin Skin Exam: Normal Color Assessment and Plan - Assessment and Plan (Free Text) Assessment: Mr. Jose Fletcher is a 88 y/o M was admitted for a fall out of bed and head injury. Though he denied any symptoms preceding the event, it is possible that he had an acute/subacute ischemic stroke regardless of his Pradaxa use at home, so we are still in the process or ruling out an acute CVA. Mr. Jose Fletcher was unable to have MRI Brain and MRA Head and Neck done over the weekend as he could not tolerate the exams. -Imaging that has been completed reviewed. -Echo done shows EF 55-60%, no LV thrombus. -Repeat non-contrast CT Head and CTA Head and Neck ordered as pt couldn't tolerate MRI, MRA---will f/u with results. If negative, pt can be d/c home. -Continue Pradaxa, ASA, and Statin upon d/c home. -Continue PT/OT as tolerated -Have pt f/u with PMD, cardiology, and Dr. Lim in the office. He should see Dr. Lim within 1 month. -Notify neuro team of any acute changes in condition. Case discussed with Dr. Mario
[2018-12-03] MEDS ORDERED: Sodium Chloride 0.9% 50 ML IV ONE (11:51)
[2018-12-03] MEDS ORDERED: Iodixanol 320 MG/ML 100 ML BOTTLE IV ONE (11:51)
--- NOTE | 2018-12-03 13:42 | CT ---
Date of service: 12/03/2018 PROCEDURE: CT HEAD WITHOUT CONTRAST. HISTORY: fall, head injury, on Pradaxa COMPARISON: Comparison is made to the previous study dated 11/28/2018 TECHNIQUE: Axial computed tomography images were obtained through the head/brain without intravenous contrast. Radiation dose: Total exam DLP = 884.53 mGy-cm. This CT exam was performed using one or more of the following dose reduction techniques: Automated exposure control, adjustment of the mA and/or kV according to patient size, and/or use of iterative reconstruction technique. FINDINGS: HEMORRHAGE: No intracranial hemorrhage. BRAIN: Again noted is focal encephalomalacia at the left frontal lobe suggestive of chronic infarct. Atrophy and mild chronic microvascular white matter ischemic changes are again noted. VENTRICLES: Unremarkable. No hydrocephalus. CALVARIUM: Unremarkable. PARANASAL SINUSES: Unremarkable as visualized. No significant inflammatory changes. MASTOID AIR CELLS: Right mastoid effusion suspicious for mastoiditis. OTHER FINDINGS: None. IMPRESSION: No evidence of acute intracranial hemorrhage intracranial collection mass effect or midline shift. No significant interval changes noted since the prior study. Right mastoid effusion may represent mastoiditis again noted.
--- NOTE | 2018-12-03 14:31 | CT ---
Date of service: 12/03/2018 PROCEDURE: CT Angiography of the Brain. CT HEAD and neck WITH CONTRAST HISTORY: fall, head injury, on Pradaxa, h/o strokes COMPARISON: None available. TECHNIQUE: CT angiography of the intracranial arteries was performed. Coronal and sagittal maximum intensity projection reformated images were generated. Radiation dose: Total exam DLP = 495.33 mGy-cm. This CT exam was performed using one or more of the following dose reduction techniques: Automated exposure control, adjustment of the mA and/or kV according to patient size, and/or use of iterative reconstruction technique. FINDINGS: RIGHT CAROTID ARTERIES: Common Carotid Artery: Normal. Carotid Bifurcation: Mural thickening noted at the carotid bifurcation. Internal Carotid Artery:Delete occlusion of the right internal carotid artery from its origin. External Carotid Artery (proximal branches): Normal. LEFT CAROTID ARTERIES: Common Carotid Artery: Normal. Carotid Bifurcation: Normal. Internal Carotid Artery:Patent demonstrate foci of calcification at the cavernous and supraclinoid portion. External Carotid Artery (proximal branches): Normal. VERTEBRAL ARTERIES: Right Vertebral Artery: The right vertebral artery is smaller than the left. Left Vertebral Artery: Normal. 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 Foci of atherosclerotic calcifications seen at the distal left internal carotid artery. ANTERIOR CEREBRAL ARTERIES: Unremarkable. A1 and A2 segments are widely patent. Smaller distal branches unremarkable, as visualized. MIDDLE CEREBRAL ARTERIES: Constitution of right middle cerebral artery from the left circulation and from slightly prominent right posterior communicated artery. The left M1 segment showed no significant stenosis. POSTERIOR CIRCULATION: Basilar Artery: Unremarkable. Distal Vertebral Arteries: Unremarkable. Posterior Cerebral Arteries: Unremarkable. Posterior Inferior Cerebellar Arteries: Unremarkable. ANEURYSM/ VASCULAR MALFORMATIONS: None. OTHER FINDINGS: None. 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 Reconstitution of right middle cerebral artery from the left circulation and via small size right posterior communicated artery. No evidence of aneurysm or vascular anomaly.
--- NOTE | 2018-12-03 19:14 | PN ---
DATE: 12/03/2018 SUBJECTIVE: The patient was reported to have slowest heart rate at 33. He denies any dizziness. PHYSICAL EXAMINATION: VITAL SIGNS: Blood pressure 146/66, heart rate 46, temperature 98.4, and respiration 20. HEENT: No pallor or icterus. CHEST: Clear. HEART: S1, S2 irregular. EXTREMITIES: No edema. LABORATORY DATA: Today's blood sugar is 95. Head CT scan without contrast; no evidence of acute intracranial hemorrhage, intracranial collection, mass effect, or midline shift. This is a repeat CT scan study. Head and neck CT angio, report is still pending. ASSESSMENT: 1. Atrial fibrillation with slow ventricular response. 2. Status post fall. 3. Cerebrovascular accident with residual right hemiplegia. 4. Hypertension. RECOMMENDATIONS: Continue Cozaar 100 mg once a day, aspirin 81 mg once a day, Pradaxa 150 mg once a day, Pravachol 20 mg once a day. EP consult has been requested in view of worsening bradycardia. Chance Knight MD
[2018-12-03] MEDS: Pravastatin Sodium 20 MG TAB PO SCH (21:26)
--- NOTE | 2018-12-04 00:26 | PN ---
DATE: 12/03/2018 DAILY PROGRESS NOTE SUBJECTIVE: The patient is seen today, 12/03/2018. He is not in any cardiopulmonary distress. Heart rate dropped down to 30s last night. PHYSICAL EXAMINATION: VITAL SIGNS: Blood pressure 142/60, temperature 97.3, respiratory rate 18 and pulse 51. HEENT: Pupils equal and reactive to light. Normal-appearing mucosa of the conjunctivae, oropharynx and nasal membrane mucosa. NECK: Supple. No JVD. No carotid bruit. No lymph node. No thyromegaly. CHEST AND LUNGS: Bilateral symmetrical expansion. Good air exchange. No rales. No rhonchi. CARDIOVASCULAR SYSTEM: PMI not localized. S1 and S2. No additional sounds. ABDOMEN: Normoactive bowel sounds. No tenderness. No organomegaly. No masses. EXTREMITIES: No cyanosis, no clubbing, no edema. CENTRAL NERVOUS SYSTEM: Alert, awake, oriented x2. The patient has right-sided hemiplegia. ASSESSMENT: 1. Chronic atrial fibrillation with slow ventricular rate. Currently, the patient is not on any rate controlling agent. 2. Right-sided hemiplegia, secondary to cerebrovascular accident. 3. Hypertension. 4. Type 2 diabetes mellitus. PLAN: Continue current medications. Electrophysiology consultation. Itzel Hernández MD
--- NOTE | 2018-12-04 03:18 | CON ---
DATE: 12/03/2018 INPATIENT ELECTROPHYSIOLOGY CONSULTATION TYPE OF CONSULTATION: Electrophysiology. REASON FOR CONSULTATION: 1. Bradycardia. 2. Atrial fibrillation. 3. History of stroke. 4. Status post fall. HISTORY OF PRESENT ILLNESS: Mr. Henri Fletcher is an 88-year-old male with past medical history significant for atrial fibrillation, history of CVA with right-sided hemiparesis, who presents to [facility] (Formerly [facility]) on the day of admission, 11/29/2018, status post fall. The patient sustained a fall when trying to leave his bed to go to bathroom reaching for his walker, fell down on his right side, and had difficulty. The patient denies any dizziness, lightheadedness, or weakness at this time. The patient has no history of recent chest pain, palpitations, or dizziness. The patient was admitted, seen in consultation by Dr. nKight who was to see him from a general cardiology standpoint. PAST MEDICAL HISTORY: As mentioned in the history of present illness. ALLERGIES: NO KNOWN DRUG ALLERGIES. SOCIAL HISTORY: Negative for current tobacco, EtOH, or drug abuse. FAMILY HISTORY: Noncontributory. MEDICATIONS: Currently include aspirin 81 mg p.o. daily, Pradaxa 150 mg every 12 hours, vitamin D 50,000 international units p.o. monthly, Lexapro 10 mg p.o. nightly, losartan 100 mg p.o. daily, and pravastatin or Pravachol 20 mg p.o. at bedtime. LABORATORY DATA: On review of relevant lab work, the patient has a white count of 12.3, H and H of 12.6 and 37.3, platelets of 329. INR on presentation was 1.5, PT was 17.5. Chemistry: Sodium was 139, potassium is 4.4, chloride is 109, BUN and creatinine is 22 and 1.3, glucose of 105, LDL of 65. TSH is normal at 0.87. PHYSICAL EXAMINATION: VITAL SIGNS: Temperature is 97.9, pulse rate of 52, blood pressure is 140/54, and respiratory rate of 20. GENERAL: The patient is a well-developed, pleasant, primarily Brazilian-speaking male, in no acute distress, able to speak in complete sentences. HEENT: Head is normocephalic, atraumatic. There is no bucky facial asymmetry. Mucous membranes appear moist. Pupils are equally round and reactive to light and accommodation. NECK: Supple. No jugular venous distention. No carotid bruits or audible traces. Clear to auscultation bilaterally. CARDIOVASCULAR: Irregularly irregular rhythm. S1, S2. No S3 or S4. ABDOMEN: Soft, nontender, nondistended. Positive bowel sounds. EXTREMITIES: No cyanosis, clubbing, or edema. IMAGING: On review of electrocardiogram which is done on 11/28/2018 shows atrial fibrillation with slow ventricular response with 55 beats per minute, normal R-wave progression across the limb leads, borderline R-wave progression across the precordial leads, evidence of PVCs which appear to be left bundloid in appearance and appear to be superiorly directed, slightly coming from the right ventricle. QT/QTc is 450 and 430 respectively, that is borderline. Echocardiogram, which is done on 11/29/2018, shows normal left ventricular size, normal left ventricular thickness, ejection fraction is 55-60%. No ventricular septal defect. No aneurysm. Right ventricle is of normal size and thickness. Left atrium is moderately dilated. Right atrium is normal in size. Aortic valve appears to be normal in structure. No aortic valve stenosis or aortic regurgitation. Mitral valve is normal in structure. No evidence of mitral valve prolapse. Tricuspid valve is normal in structure. No tricuspid valve regurgitation. Right ventricular systolic pressure is calculated to be 31, meaning mild pulmonary hypertension is noted. Pulmonic valve is normal in function. Aortic root is also normal in size. Conclusion is ejection fraction 55-60%. Diastolic function could not be assessed. Left atrium is moderately dilated. On review of telemetry, the patient is chronically in atrial fibrillation with rates during the daytime in the 60s and 70s. The patient does occasionally have heart rates in the 30s and 40s at night, which time out with rest/sleep. ASSESSMENT AND PLAN: 1. Bradycardia, at this point appears to be related to autonomic tone. Currently, the patient has been on rate slowing agents. His fall does not appear to be related to bradycardia. I did discuss with him the possibility of eventually requiring a permanent pacemaker. At this point, he is not considering a permanent pacemaker at all and does not wish to ever have a permanent pacemaker placed for chronotropic support. Risks and benefits were discussed in detail with the nurse practitioner who speaks Brazilian at the bedside. All questions were answered. All potential concerns were also addressed. 2. Atrial fibrillation. At this point, the patient appears to have undergone a mechanical fall. No evidence of bucky syncope can be elicited at this time. He should be continued on Pradaxa. Pradaxa at this point because the patient is not considering a permanent pacemaker. 3. History of cerebrovascular accident. The patient again continues to be anticoagulated in the setting of chronic atrial fibrillation. 4. Status post fall which appears to be mechanical. 5. Prolonged QT. The patient is to avoid QT prolonging agents. No history of unsustained ventricular tachycardia or syncope. The patient does have premature ventricular contractions of right ventricular origin. Thank you for allowing me to participate in the care of your patient. Please do not hesitate to call if you have any questions in regards to his care. Kristopher Hogan MD cc: Chance Mathews MD
[2018-12-04] MEDS: Insulin Lispro (humaLOG) 100 Units/ml Inj SC SCH ×2 (05:30→14:38)
--- NOTE | 2018-12-04 11:28 | CP.PCM.PN ---
Subjective - Date & Time of Evaluation Date of Evaluation: 12/04/18 Time of Evaluation: 11:26 - Subjective Subjective: Neuro Follow-Up Note: Mr. Jose Fletcher was evaluated this afternoon at bedside. Destination Specialist and friend present at bedside. He is eager to be d/c, however, understand why it is important that he sees the Neuro IR team. He states that he feels fine today; denies h/a, dizziness, visual changes, chest pain, palpitations,m sob, cough, abd pain, n/v/d. Objective - Vital Signs/Intake and Output Vital Signs (last 24 hours): Temp Pulse Resp BP Pulse Ox 98.4 F 61 18 147/82 99 12/04/18 07:58 12/04/18 07:58 12/04/18 07:58 12/04/18 07:58 12/04/18 07:58 - Medications Medications: Current Medications Aspirin (Ecotrin) 81 mg PO DAILY [facility] Last Admin: 12/03/18 08:55 Dose: 81 mg Dabigatran (Pradaxa) 150 mg PO Q12 [facility]; Protocol Last Admin: 12/03/18 21:26 Dose: 150 mg Ergocalciferol (Drisdol 50,000 Intl Units Cap) 1 cap PO MO [facility] Last Admin: 12/03/18 06:33 Dose: 1 cap Escitalopram Oxalate (Lexapro) 10 mg PO HS [facility] Last Admin: 12/03/18 21:26 Dose: 10 mg Insulin Human Lispro (Humalog) 0 units SC Q6 [facility]; Protocol Last Admin: 12/04/18 05:30 Dose: Not Given Lidocaine (Lidoderm) 1 ea TD DAILY [facility] Last Admin: 12/03/18 08:56 Dose: 1 ea Losartan Potassium (Cozaar) 100 mg PO DAILY [facility] Last Admin: 12/03/18 08:54 Dose: Not Given Magnesium Hydroxide (Milk Of Magnesia) 30 ml PO Q4 PRN PRN Reason: Constipation Pravastatin Sodium (Pravachol) 20 mg PO HS [facility] Last Admin: 12/03/18 21:26 Dose: 20 mg - Labs Labs: 11/28/18 18:03 11/28/18 18:03 PT 17.5 Seconds (9.8-13.1) H 11/28/18 18:03 INR 1.5 11/28/18 18:03 APTT 78.3 Seconds (25.6-37.1) H 11/28/18 18:03 - Constitutional Appears: Well, Non-toxic, No Acute Distress - Head Exam Head Exam: ATRAUMATIC, NORMAL INSPECTION, NORMOCEPHALIC - Eye Exam Eye Exam: EOMI, Normal appearance, PERRL Pupil Exam: NORMAL ACCOMODATION, PERRL - ENT Exam ENT Exam: Mucous Membranes Moist, Normal Exam - Neck Exam Neck Exam: Full ROM, Normal Inspection - Respiratory Exam Respiratory Exam: NORMAL BREATHING PATTERN - Cardiovascular Exam Cardiovascular Exam: Irregular Rhythm - GI/Abdominal Exam GI & Abdominal Exam: Soft - Extremities Exam Extremities Exam: absent: Calf Tenderness, Full ROM, Pedal Edema Additional comments: RUE weakness 2/2 old cva - Back Exam Back Exam: Full ROM - Neurological Exam Neurological Exam: Alert, Awake, CN II-XII Intact, Oriented x3, Reflexes Normal Neuro motor strength exam: Left Upper Extremity: 5, Right Upper Extremity: 2/1, Left Lower Extremity: 5, Right Lower Extremity: 5 Additional comments: Awake, alert, follows all commands, answers appropriately Speech clear, fluid RUE weakness noted residual from old CVA No sensory deficits No ataxia, no dysmetria to left Gait not assessed - Psychiatric Exam Psychiatric exam: Normal Affect, Normal Mood - Skin Skin Exam: Normal Color Assessment and Plan (1) Right carotid artery occlusion Assessment & Plan: -Imaging that has been completed reviewed. -Echo done shows EF 55-60%, no LV thrombus. -CTA Head and Neck (12/03/18) shows complete occlusion of the Right ICA. -Repeat CT Head (12/03/18) shows no acute intracranial changes. -Neuro IR consulted yesterday for the Right ICA complete occlusion; I made Dr. Jeffries aware of consult; pt to be seen by their group---will f/u with the recommendations. -Continue Pradaxa, ASA, and Statin. -Continue PT/OT as tolerated -Pt evaluated by EP for PPM, though he refused. -Notify neuro team of any acute changes in condition. Case discussed with Dr. Mario Status: Acute
[2018-12-04] MEDS: Lidocaine 5% Patch TD SCH (11:41)
--- NOTE | 2018-12-04 13:40 | CP.PCM.PCO ---
Assessment/Plan - Assessment/Plan Assessment (Free Text): Patient seen and examined this morning with Dr Hernández. Again, inserting a pacemaker was strongly advised, patient now agreeing to Pacemaker. Dr Prasad called back and made aware. Pradaxa and Aspirin put on hold starting now, Pacemaker tentatively on the schedule for morning. - Problems Patient Problems: Problem List (Active/Current) Problem Status Onset Code Carotid artery, internal, occlusion Acute I65.29 Dizziness Acute R42 Head injury Acute S09.90XA Ischemic stroke Acute I63.9 Right carotid artery occlusion Acute I65.21
--- NOTE | 2018-12-04 17:43 | PN ---
DATE: 12/04/2018 SUBJECTIVE: The patient denies any dizziness. The patient was evaluated by Dr. Chery and permanent pacemaker was considered as an eventual event; however, the patient rejected the idea of having a pacemaker placement. PHYSICAL EXAMINATION: VITAL SIGNS: Blood pressure 149/51, heart rate 60, temperature 98.2, respirations 18. HEENT: No pallor or icterus. CHEST: Clear. CARDIOVASCULAR: S1, S2 regular. EXTREMITIES: No edema. LABORATORY DATA: Today's blood sugar is 87. Head and neck CT angio performed yesterday revealed complete occlusion of the right internal carotid artery from its origin, reconstitution of the right artery from the left circulation and via small sized posterior communicating artery. ASSESSMENT: 1. Chronic atrial fibrillation. 2. Bradycardia. 3. Status post fall. 4. History of cerebrovascular accident with residual right hemiplegia. 5. 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 RECOMMENDATIONS: Continue Cozaar 100 mg once a day, aspirin 81 mg once a day, Pradaxa 250 mg twice a day, Pravachol 20 mg daily. The patient can be maintained on medical management, as he refuses the idea of permanent pacemaker placement. Chance Knight MD
[2018-12-04] MEDS: Pravastatin Sodium 20 MG TAB PO SCH (21:19)
--- NOTE | 2018-12-05 02:32 | PN ---
DATE: 12/04/2018 SUBJECTIVE: The patient is seen today, 12/04/2018. He has atrial fibrillation with slow ventricular rate without any rate controlling agents. PHYSICAL EXAMINATION: VITAL SIGNS: Blood pressure 106/49, temperature 98.9, respiratory rate 16, and pulse 50. HEENT: Pupils equal and reactive to light. Normal-appearing mucosa of the conjunctivae, oropharynx, and nasal membrane mucosa. NECK: Supple. No JVD. No carotid bruit. No lymph node. No thyromegaly. CHEST AND LUNGS: Bilateral symmetrical expansion. Good air exchange. No rales. No rhonchi. CARDIOVASCULAR SYSTEM: PMI not localized. S1, S2. No additional sounds. ABDOMEN: Normoactive bowel sounds. No tenderness. No organomegaly. No masses. EXTREMITIES: No cyanosis, no clubbing, no edema. CENTRAL NERVOUS SYSTEM: Alert, awake, and oriented x2. The patient has right-sided hemiparesis. ASSESSMENT: Atrial fibrillation with slow ventricular rate, status post fall, hypertension, cerebrovascular accident with right-sided hemiplegia. PLAN: Continue current medications and the patient is now agreeing for county director recommendation for pacemaker. We will follow the recommendation. Continue telemetry. Itzel Hernández MD
[2018-12-05] MEDS: Insulin Lispro (humaLOG) 100 Units/ml Inj SC SCH ×4 (10:02→23:34)
[2018-12-05] MEDS: Lidocaine 5% Patch TD SCH (10:03)
--- NOTE | 2018-12-05 11:18 | CP.PCM.PN ---
Subjective - Date & Time of Evaluation Date of Evaluation: 12/05/18 Time of Evaluation: 11:17 - Subjective Subjective: Neuro Follow-Up Note: Mr. Jose Fletcher was evaluated this morning at bedside. Pt has agreed to a pacemaker insertion; it is scheduled tentatively for tomorrow. He has no complaints today; denies h/a, dizziness, visual changes, chest pain, palpitations, sob, cough, abd pain, n/v/d. Objective - Vital Signs/Intake and Output Vital Signs (last 24 hours): Temp Pulse Resp BP Pulse Ox 98.4 F 51 L 18 132/51 L 98 12/05/18 07:58 12/05/18 07:58 12/05/18 07:58 12/05/18 07:58 12/05/18 07:58 - Medications Medications: Current Medications Aspirin (Ecotrin) 81 mg PO DAILY [facility] Last Admin: 12/04/18 11:41 Dose: 81 mg Dabigatran (Pradaxa) 150 mg PO Q12 [facility]; Protocol Last Admin: 12/04/18 11:42 Dose: 150 mg Ergocalciferol (Drisdol 50,000 Intl Units Cap) 1 cap PO MO [facility] Last Admin: 12/03/18 06:33 Dose: 1 cap Escitalopram Oxalate (Lexapro) 10 mg PO HS [facility] Last Admin: 12/04/18 21:18 Dose: 10 mg Insulin Human Lispro (Humalog) 0 units SC Q6 [facility]; Protocol Last Admin: 12/05/18 10:02 Dose: Not Given Lidocaine (Lidoderm) 1 ea TD DAILY [facility] Last Admin: 12/05/18 10:03 Dose: 1 ea Losartan Potassium (Cozaar) 100 mg PO DAILY [facility] Last Admin: 12/05/18 10:01 Dose: Not Given Magnesium Hydroxide (Milk Of Magnesia) 30 ml PO Q4 PRN PRN Reason: Constipation Pravastatin Sodium (Pravachol) 20 mg PO HS [facility] Last Admin: 12/04/18 21:19 Dose: 20 mg - Labs Labs: 11/28/18 18:03 11/28/18 18:03 PT 17.5 Seconds (9.8-13.1) H 11/28/18 18:03 INR 1.5 11/28/18 18:03 APTT 78.3 Seconds (25.6-37.1) H 11/28/18 18:03 - Constitutional Appears: Well, Non-toxic, No Acute Distress - Head Exam Head Exam: ATRAUMATIC, NORMAL INSPECTION, NORMOCEPHALIC - Eye Exam Eye Exam: EOMI, Normal appearance, PERRL Pupil Exam: NORMAL ACCOMODATION, PERRL - ENT Exam ENT Exam: Mucous Membranes Moist - Neck Exam Neck Exam: Full ROM, Normal Inspection - Respiratory Exam Respiratory Exam: NORMAL BREATHING PATTERN - GI/Abdominal Exam GI & Abdominal Exam: Soft - Extremities Exam Extremities Exam: absent: Calf Tenderness, Full ROM, Pedal Edema Additional comments: RUE weakness 2/2 old CVA - Back Exam Back Exam: Full ROM - Neurological Exam Neurological Exam: Alert, Awake, CN II-XII Intact, Oriented x3, Reflexes Normal Neuro motor strength exam: Left Upper Extremity: 5, Right Upper Extremity: 2/1, Left Lower Extremity: 5, Right Lower Extremity: 5 Additional comments: Awake, alert, follows all commands, answers appropriately Speech clear, fluid RUE weakness noted residual from old CVA No sensory deficits No ataxia, no dysmetria to left Gait not assessed - Psychiatric Exam Psychiatric exam: Normal Affect, Normal Mood - Skin Skin Exam: Normal Color Assessment and Plan (1) Right carotid artery occlusion Assessment & Plan: -Imaging that has been completed reviewed. -Echo done shows EF 55-60%, no LV thrombus. -CTA Head and Neck (12/03/18) shows complete occlusion of the Right ICA. -Repeat CT Head (12/03/18) shows no acute intracranial changes. -Neuro IR consulted for the Right ICA complete occlusion; I notified them again this morning of the pending consult; Neuro IR STUDIO COUCH FRAME BUILDER will see pt---will f/u with the recommendations. -Continue Statin. -Pradaxa and ASA on hold for PPM tomorrow (tentatively scheduled) with EP. -Continue PT/OT as tolerated -Notify neuro team of any acute changes in condition. Case discussed with Dr. Lim Status: Acute
--- NOTE | 2018-12-05 20:06 | PN ---
DATE: 12/05/2018 SUBJECTIVE: The patient's heart rate goes down into the 30s at times. He denies any dizziness. He did reverse his decision about pacemaker and agreed for the implantable permanent pacemaker which is schedule for tomorrow according to the nurse. PHYSICAL EXAMINATION: VITAL SIGNS: Blood pressure 152/56, heart rate 55, temperature 98.3, and respirations 16. HEENT: No pallor or icterus. NECK: No JVD. CHEST: Clear. HEART: S1, S2 regular. EXTREMITIES: No edema. LABORATORY DATA: Today's blood sugars are 98 and 110. ASSESSMENT: 1. Chronic atrial fibrillation with periods of slow heart rate in the 30s. 2. Status post fall. 3. History of cerebrovascular accident with residual right hemiplegia. 4. 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 RECOMMENDATIONS: Continue aspirin 81 mg once a day, Pradaxa is on hold for the planned implantable cardioverter-defibrillator. Continue Pravachol 20 mg once a day. Chance Knight MD
[2018-12-05] MEDS: Pravastatin Sodium 20 MG TAB PO SCH (21:15)
--- NOTE | 2018-12-06 01:57 | PN ---
DATE: 12/05/2018 SUBJECTIVE: The patient is seen today, 12/05/2018. He is not in any cardiopulmonary distress. Pradaxa was stopped in anticipation of pacemaker placement. PHYSICAL EXAMINATION: VITAL SIGNS: Blood pressure is 114/54, temperature 98.8, respiratory rate 16, and pulse 53. HEENT: Pupils equal, reactive to light. Normal-appearing mucosa of the conjunctivae, oropharynx and nasal membrane mucosa. NECK: Supple. No JVD. No carotid bruit. No lymph node. No thyromegaly. CHEST AND LUNGS: Bilateral symmetrical expansion. Good air exchange. No rales, no rhonchi. CARDIOVASCULAR SYSTEM: PMI not localized. S1, S2. No additional sounds. ABDOMEN: Normoactive bowel sounds. No tenderness. No organomegaly. No masses. EXTREMITIES: No cyanosis, no clubbing, no edema. SHEET HANGER: Alert, awake, oriented x2. No neurological deficit could be appreciated except for right-sided hemiplegia. ASSESSMENT: 1. Atrial fibrillation with slow ventricular rate. 2. Status post fall with left knee contusion. 3. Hypertension. 4. Cerebrovascular accident. 5. Type 2 diabetes mellitus. PLAN: Continue current medications and the patient is planned for pacemaker placement. Itzel Hernández MD
[2018-12-06 06:56] LABS: SQUAMOUS EPITHIAL 1 /hpf (0-5); URINE BACTERIA RARE (<OCC); URINE BILIRUBIN NEGATIVE (NEGATIVE); URINE BLOOD NEGATIVE (NEGATIVE); URINE CLARITY TURBID (Clear); URINE COLOR YELLOW (YELLOW); URINE GLUCOSE (UA) NEG (NEGATIVE); URINE LEUKOCYTE ESTERASE LARGE Leu/uL (Negative); URINE PROTEIN 30 mg/dL (NEGATIVE); URINE TRIPLE PHOSPHATE CRYSTAL MANY /hpf (<OCC); URINE UROBILINOGEN 0.2-1.0 mg/dL (0.2-1.0)
[2018-12-06] MEDS: Lidocaine 5% Patch TD SCH (09:20)
[2018-12-06 09:52] LABS: INR 1.2; PROTHROMBIN TIME 13.6 Seconds (9.8-13.1)
[2018-12-06 09:55] LABS: PARTIAL THROMBOPLASTIN TIME 49.1 Seconds (25.6-37.1)
[2018-12-06 11:14] LABS: HEMOGLOBIN 12.6 g/dL (12.0-18.0); MEAN CELL VOLUME 109.2 fl (80.0-94.0); MEAN CORPUSCULAR HGB CONC 32.9 g/dL (33.0-37.0); RBC 3.5 Mil/uL (4.40-5.90); RED CELL DISTRIBUTION WIDTH 12.5 % (11.5-14.5); WHITE BLOOD COUNT 6.8 K/uL (4.8-10.8)
[2018-12-06 11:20] LABS: BLOOD UREA NITROGEN 25 mg/dl (9-20); CALCIUM 8.9 mg/dL (8.4-10.2); GFR NON-AFRICAN AMERICAN > 60
--- NOTE | 2018-12-06 11:27 | CP.PCM.PN ---
Subjective - Date & Time of Evaluation Date of Evaluation: 12/06/18 Time of Evaluation: 10:20 - Subjective Subjective: Neuro Follow-Up Note: Mr. Jose Fletcher was evaluated this morning in bed. He is currently NPO for PPM insertion. He denies any complaints; no h/a, dizziness, visual changes, chest pain, palpitations, sob, cough, abd pain, n/v/d. Objective - Vital Signs/Intake and Output Vital Signs (last 24 hours): Temp Pulse Resp BP Pulse Ox 98 F 43 L 18 143/72 98 12/06/18 08:16 12/06/18 08:16 12/06/18 08:16 12/06/18 08:16 12/06/18 08:16 - Medications Medications: Current Medications Aspirin (Ecotrin) 81 mg PO DAILY [facility] Last Admin: 12/04/18 11:41 Dose: 81 mg Dabigatran (Pradaxa) 150 mg PO Q12 [facility]; Protocol Last Admin: 12/04/18 11:42 Dose: 150 mg Ergocalciferol (Drisdol 50,000 Intl Units Cap) 1 cap PO MO [facility] Last Admin: 12/03/18 06:33 Dose: 1 cap Escitalopram Oxalate (Lexapro) 10 mg PO HS [facility] Last Admin: 12/05/18 21:15 Dose: 10 mg Ceftriaxone Sodium 1 gm/ (Sodium Chloride) 100 mls @ 100 mls/hr IVPB DAILY [facility]; Protocol Last Admin: 12/06/18 11:25 Dose: 100 mls/hr Insulin Human Lispro (Humalog) 0 units SC Q6 [facility]; Protocol Last Admin: 12/05/18 23:34 Dose: Not Given Lidocaine (Lidoderm) 1 ea TD DAILY [facility] Last Admin: 12/06/18 09:20 Dose: 1 ea Losartan Potassium (Cozaar) 100 mg PO DAILY [facility] Last Admin: 12/06/18 09:19 Dose: Not Given Magnesium Hydroxide (Milk Of Magnesia) 30 ml PO Q4 PRN PRN Reason: Constipation Pravastatin Sodium (Pravachol) 20 mg PO HS [facility] Last Admin: 12/05/18 21:15 Dose: 20 mg - Labs Labs: 12/06/18 10:50 12/06/18 10:50 PT 13.6 Seconds (9.8-13.1) H 12/06/18 08:40 INR 1.2 12/06/18 08:40 APTT 49.1 Seconds (25.6-37.1) H 12/06/18 08:40 - Constitutional Appears: Well, Non-toxic, No Acute Distress - Head Exam Head Exam: ATRAUMATIC, NORMAL INSPECTION, NORMOCEPHALIC - Eye Exam Eye Exam: EOMI, Normal appearance Pupil Exam: NORMAL ACCOMODATION, PERRL - ENT Exam ENT Exam: Mucous Membranes Moist - Neck Exam Neck Exam: Full ROM, Normal Inspection - Respiratory Exam Respiratory Exam: NORMAL BREATHING PATTERN - Extremities Exam Extremities Exam: absent: Calf Tenderness, Full ROM, Pedal Edema Additional comments: RUE weakness 2/2 old CVA - Back Exam Back Exam: Full ROM - Neurological Exam Neurological Exam: Alert, Awake, CN II-XII Intact, Oriented x3 Neuro motor strength exam: Left Upper Extremity: 5, Right Upper Extremity: 2/1, Left Lower Extremity: 5, Right Lower Extremity: 5 Additional comments: Awake, alert, follows all commands. Speech clear, fluid RUE weakness noted residual from old CVA; other extremities FROM and no motor deficits. No sensory deficits No ataxia, no dysmetria to left Gait not assessed - Psychiatric Exam Psychiatric exam: Normal Affect, Normal Mood - Skin Skin Exam: Normal Color Assessment and Plan (1) Right carotid artery occlusion Assessment & Plan: -Imaging that has been completed reviewed. -Echo done shows EF 55-60%, no LV thrombus. -CTA Head and Neck (12/03/18) shows complete occlusion of the Right ICA. -Repeat CT Head (12/03/18) shows no acute intracranial changes. -Neuro IR consulted for the Right ICA complete occlusion; I notified them again yesterday of the pending consult; Neuro IR CHURN OPERATOR MARGARINE will see pt according to Dr. Jeffries---will f/u with the recommendations. -Continue Statin. -Pradaxa and ASA still on hold for PPM insertion today with EP. -Continue PT/OT as tolerated -Notify neuro team of any acute changes in condition. Case discussed with Dr. Lim Status: Acute
[2018-12-06] MEDS: Insulin Lispro (humaLOG) 100 Units/ml Inj SC SCH ×3 (11:33→22:10)
[2018-12-06] MEDS: Dextrose 5%/0.45% NS 1,000 ML IV SCH (12:25)
[2018-12-06] MEDS ORDERED: Liquid Adhesive TOP ONE (12:41)
[2018-12-06] MEDS ORDERED: Lidocaine 1% Inj (20ml) ONE (12:42)
[2018-12-06] MEDS ORDERED: Midazolam 2 MG/2 ML VIAL ONE (13:25)
[2018-12-06] MEDS ORDERED: Succinylcholine Chloride 20 mg/ml Syr (5 ml) IV ONE (13:25)
[2018-12-06] MEDS ORDERED: Lactated Ringer's 500 ML IV ONE (13:45)
--- NOTE | 2018-12-06 16:54 | RAD ---
Date of service: 12/06/2018 HISTORY: s/p pacemaker COMPARISON: 11/28/2018 FINDINGS: LUNGS: No active pulmonary disease. PLEURA: No significant pleural effusion identified, no pneumothorax apparent. CARDIOVASCULAR: No atherosclerotic calcification present No radiographic findings to suggest acute or significant cardiovascular disease. Position/ configuration of pacemaker represents a new finding compared to the prior chest radiograph. OSSEOUS STRUCTURES: No significant abnormalities. VISUALIZED UPPER ABDOMEN: Normal. OTHER FINDINGS: None. IMPRESSION: No active disease. No adverse findings following pacemaker placement.
[2018-12-06] MEDS: Pravastatin Sodium 20 MG TAB PO SCH (22:11)
--- NOTE | 2018-12-06 23:45 | OP ---
PROCEDURE DATE: 12/06/2018 PROCEDURE: Insertion of single-lead permanent pacemaker. PREOPERATIVE DIAGNOSES: 1. Bradycardia. 2. Fall, possible syncope. BRIEF HISTORY: Mr. Henri Garcia is an 88-year-old male with past medical history is significant for chronic atrial fibrillation, history of CVA with right-sided hemiparesis who presented to [facility] on 11/29/2018 status post fall. The patient was noted to have atrial fibrillation with slow ventricular rates at rest as well as at night. The patient is anticoagulated on Pradaxa, did sustain injury to his head but no life-threatening bleed was discovered. I did have a discussion with him in regards to atrial fibrillation with slow ventricular response, and the suggestion for atrial fibrillation with chronotropic support. The patient's Primary also spoke to him. Under further questioning, after discussing possible risk of worsening bradycardia with unclear symptoms surrounding his fall, patient was agreeable for permanent pacemaker. Pradaxa was held two days prior to today's procedure. Patient was deemed to be medically clear for the procedure. Patient, therefore, presents today for elective insertion of single-lead permanent pacemaker. Informed consent was received and witnessed, risks and benefits were discussed in detail. Patient was agreeable. DESCRIPTION OF PROCEDURE: Patient was brought into the operating room at [facility] for the aforementioned procedure. The left pectoral area was draped and prepped in a sterile fashion. A 2% lidocaine solution was injected into the surgical site. Using a #15 blade, a 3.5 cm incision was made. Fascial planes were dissected, cephalic vein was identified. Cephalic vein cutdown was performed again without difficulty. A 0.035 guidewire was inserted via this access point and 7-[place] [employer] was then inserted over this wire. The right ventricular lead which is a 5076, 58 cm lead, serial number [id number] was inserted via this sheet and manipulated into the right ventricular apex without difficulty. Parameters on this lead through the program system analyzer and similarly through the device are as follows: Threshold is 0.4 volt and 0.5 milliseconds at a current of 1.4 milliamps, impedance of 1040 which is within normal limits. R-wave is measured 9.2 millivolts. Both leads were finalized under a fluoroscopic guidance. Lead was tied up without difficulty. A subfascial pocket was made, irrigated with bacitracin solution. Lead and device were then closed and placed in the pocket. A retention suture was applied with 0 silk suture. The superficial fascia and skin layers were brought together using two layers with 2-0 Vicryl. Final layer was closed with Mastisol and Steri-Strips. The patient tolerated the procedure and left the room in atrial fibrillation with a ventricular rate of 60. Thank you for allowing me to participate in the care of your patient. Please do not hesitate to call if you have any questions in regards to his care. Kristopher Hogan MD cc: MD Dr. Edgar Lindsay.
--- NOTE | 2018-12-06 23:56 | PN ---
DATE: 12/06/2018 SUBJECTIVE: The patient underwent a single-chamber ventricular pacemaker placement today. No reported complications. He is currently in ventricular paced rhythm of 100%. He denies any chest pain. No reported bleeding. PHYSICAL EXAMINATION: VITAL SIGNS: Blood pressure 132/65, heart rate 60, temperature 98.5, and respirations 17. HEENT: No pallor or icterus. CHEST: Clear. HEART: S1, S2. Regular. ABDOMEN: Soft. EXTREMITIES: No edema. LABORATORY DATA: Today's SMA-7 is within normal limits except for BUN of 25. The most recent blood sugars was 116. Today's hemoglobin and hematocrit are 12.6 and 38.2. White count and platelet count are within normal limit. ASSESSMENT: 1. Status post ventricular pacemaker placement for slow atrial fibrillation. 2. Chronic atrial fibrillation. 3. Status post fall. 4. History of cerebrovascular accident with residual right hemiplegia. 5. 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 RECOMMENDATIONS: Continue current IV Rocephin at 1 g daily, Cozaar 100 mg daily, aspirin 81 mg once a day, Pravachol 20 mg daily. Pradaxa is on hold and will be restarted on Monday as per Dr. Hogan's recommendations. Chance Knight MD
[2018-12-07] MEDS: Insulin Lispro (humaLOG) 100 Units/ml Inj SC SCH ×4 (06:29→22:14)
[2018-12-07] MEDS: Dextrose 5%/0.45% NS 1,000 ML IV SCH (06:29)
[2018-12-07] MEDS: Lidocaine 5% Patch TD SCH (09:12)
--- NOTE | 2018-12-07 09:38 | CARD ---
APPROVED REPORT Date of service: 12/06/2018 EKG Measurement Heart [id number] <Conclusion> Ventricular-paced rhythm with occasional premature ventricular complexes Abnormal ECG
--- NOTE | 2018-12-07 11:38 | RAD ---
Date of service: 12/06/2018 PROCEDURE: Fluoroscopy up to 1 hr. HISTORY: PACEMAKER INSERTION COMPARISON: None TECHNIQUE: Standard protocol for this study/examination. FINDINGS: Total fluoroscopic time (continuous mode) utilized during the procedure 91.9 seconds. Total exam DLP: 16.19 (mGy). IMPRESSION: Less than 1 hr fluoroscopic assistance provided during performance of the procedure.
[2018-12-07 11:49] LABS: MEAN CELL VOLUME 106.4 fl (80.0-94.0); MEAN CORPUSCULAR HEMOGLOBIN 35.6 pg (27.0-31.0); MEAN CORPUSCULAR HGB CONC 33.4 g/dL (33.0-37.0); RBC 3.65 Mil/uL (4.40-5.90); RED CELL DISTRIBUTION WIDTH 12.8 % (11.5-14.5); WHITE BLOOD COUNT 7.6 K/uL (4.8-10.8)
--- NOTE | 2018-12-07 12:58 | CP.PCM.CON ---
History of Present Illness - History of Present Illness History of Present Illness: [facility] Dr.Farkas Dr.Arcot Dr.Turkell-Parrell Dr.Liff Júnior Desouzamalanio MSNA,AGNP-BC, [employer] is an 88 year old male with a PmHx HTN, HLD,atrial fibrillation, diabetes, CVA residual right sided weakness.Pt. had woken up approximately 0200a and attempted to get out of bed, unsure if he became dizzy and fell or if he had weakness and fell and arrived to the ED via ambulance. Pt appears to be a good historian until chart reviewed and history was quite different. 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 Reconstitution of right middle cerebral artery from the left circulation and via small right posterior communicated artery; noted on CT head/neck Past Patient History - Past Medical History & Family History Past Medical History?: Yes - Past Social History Smoking Status: Never Smoked Chewing Tobacco Use: No Cigar Use: No Alcohol: None Home Situation {Lives}: Friends - CARDIAC Hx Cardiac Disorders: Yes Hx Angina: No Hx Atrial Fibrillation: Yes Hx Congestive Heart Failure: No Hx Heart Attack: No Hx Heart Murmur: No Hx Hypercholesterolemia: Yes Hx Hypertension: Yes Hx Peripheral Edema: Yes - PULMONARY Hx Respiratory Disorders: No Hx Asthma: No Hx Bronchitis: No Hx Chronic Obstructive Pulmonary Disease (COPD): No Hx Emphysema: No Hx Lung Cancer: No Hx Pneumonia: No Hx Pulmonary Edema: No Hx Pulmonary Embolism: No Hx Respiratory Aspiration: No Hx Respiratory Tract Infection: No Hx Sleep Apnea: No Hx Tuberculosis: No - NEUROLOGICAL Hx Neurological Disorder: Yes (CVA residual right sided weakness) Hx Alzheimer's Disease: No HX Cerebrovascular Accident: Yes Hx Dementia: No Hx Dizziness: Yes Hx Meningitis: No Hx Migraine: No Hx Multiple Sclerosis: No Hx Paralysis: No Hx Parkinson's Disease: No Hx Seizures: No Hx Syncope: No Hx Transient Ischemic Attacks (TIA): No Hx Vertigo: No - HEENT Hx HEENT Problems: No Hx Blind: No Hx Cataracts: No Hx Deafness: No Hx Difficulty Chewing: No Hx Epistaxis: No Hx Glaucoma: No Hx Macular Degeneration: No Hx Sinusitis: No - RENAL Hx Chronic Kidney Disease: No Hx Dialysis: No Hx Kidney Stones: No Hx Neurogenic Bladder: No Hx Pyelonephritis: No Hx Renal (Kidney) Cancer: No Hx Renal Failure: No - ENDOCRINE/METABOLIC Hx Endocrine Disorders: Yes (dm) Hx Adrenal Cancer: No Hx Diabetes Insipidus: No Hx Diabetes Mellitus Type 1: No Hx Diabetes Mellitus Type 2: Yes Hx Hyperthyroidism: No Hx Hypothyroidism: No Hx Systemic Lupus Erythematosus: No - HEMATOLOGICAL/ONCOLOGICAL Hx Blood Disorders: No Hx AIDS: No Hx Anemia: No Hx Blood Transfusions: No Hx Blood Transfusion Reaction: No Hx Bruising: No Hx Cancer: No Hx Hepatitis A: No Hx Hepatitis B: No Hx Hepatitis C: No Hx Human Immunodeficiency Virus (HIV): No Hx Leukemia: No Hx Metastesis: No Hx Shingles: No - INTEGUMENTARY Hx Dermatological Problems: Yes Hx Basil Cell: No Hx Jean-Baptiste: No Hx Cellulitis: No Hx Eczema: No Hx Melanoma: No Hx Psoriasis: Yes Hx Squamous Cell: No - MUSCULOSKELETAL/RHEUMATOLOGICAL Hx Musculoskeletal Disorders: Yes Hx Arthritis: No Hx Back Pain: No Hx Degenerative Joint Disease: Yes Hx Falls: Yes Hx Fractures: Yes Hx Gout: No Hx Herniated Disk: No Hx Myasthenia Gravis: No Hx Osteoarthritis: No Hx Osteomyelitis: No Hx Osteoporosis: No Hx Rhabdomyolysis: No Hx Rheumatoid Arthritis: No Hx Spinal Stenosis: No Hx Unsteady Gait: Yes (walks with cane) - GASTROINTESTINAL Hx Gastrointestinal Disorders: No Hx Bowel Surgery: No Hx Clostridium Difficile: No Hx Colitis: No Hx Colostomy: No Hx Constipation: No Hx Crohn's Disease: No Hx Diarrhea: No Hx Diverticulitis: No Hx Esophageal Varices: No Hx Fatty Liver Disease: No Hx Gall Bladder Disease: No Hx Gastritis: No Hx Gastroesophageal Reflux: No Hx Hemorrhoids: No Hx Ileostomy: No Hx Irritable Bowel: No Hx Liver Failure: No Hx Nausea: No Hx Pancreatitis: No HX Swallowing Problems: No Hx Ulcer: No Hx Vomiting: No - GENITOURINARY/GYNECOLOGICAL Hx Genitourinary Disorders: No Hx Bladder Cancer: No Hx Bladder Stone: No Hx Hematuria: No Hx Incontinence: No Hx Prostate Cancer: No Hx Prostate Problems: No Hx Reproductive Disorders: No Hx Sexually Transmitted Disorders: No Hx Urinary Tract Infection: No - PSYCHIATRIC Hx Psychophysiologic Disorder: No Hx Anxiety: No Hx Bipolar Disorder: No Hx Depression: No Hx Emotional Abuse: No Hx Hallucinations: No Hx Panic Symptoms: No Hx Paranoia: No Hx Post Traumatic Stress Disorder: No Hx Psychosis: No Hx Physical Abuse: No Hx Schizophrenia: No Hx Sexual Abuse: No Hx Substance Use: No - SURGICAL HISTORY Hx Surgeries: Yes Hx Cataract Extraction: Yes (dmitry) - ANESTHESIA Hx Anesthesia: Yes Hx Anesthesia Reactions: No Hx Malignant Hyperthermia: No Has any member of the family had a problem w/ anesthesia?: No Meds Allergies/Adverse Reactions: Allergies Allergy/AdvReac Type Severity Reaction Status Date / Time No Known Allergies Allergy Unverified 11/28/18 17:19 - Medications Medications: Current Medications Aspirin (Ecotrin) 81 mg PO DAILY [facility] Last Admin: 12/04/18 11:41 Dose: 81 mg Dabigatran (Pradaxa) 150 mg PO Q12 [facility]; Protocol Last Admin: 12/04/18 11:42 Dose: 150 mg Ergocalciferol (Drisdol 50,000 Intl Units Cap) 1 cap PO MO [facility] Last Admin: 12/03/18 06:33 Dose: 1 cap Escitalopram Oxalate (Lexapro) 10 mg PO HS [facility] Last Admin: 12/06/18 22:11 Dose: 10 mg Ceftriaxone Sodium 1 gm/ (Sodium Chloride) 100 mls @ 100 mls/hr IVPB DAILY [facility]; Protocol Last Admin: 12/07/18 09:14 Dose: 100 mls/hr Insulin Human Lispro (Humalog) 0 units SC Q6 [facility]; Protocol Last Admin: 12/07/18 06:29 Dose: Not Given Lidocaine (Lidoderm) 1 ea TD DAILY [facility] Last Admin: 12/07/18 09:12 Dose: 1 ea Losartan Potassium (Cozaar) 100 mg PO DAILY [facility] Last Admin: 12/07/18 09:11 Dose: 100 mg Magnesium Hydroxide (Milk Of Magnesia) 30 ml PO Q4 PRN PRN Reason: Constipation Pravastatin Sodium (Pravachol) 20 mg PO HS [facility] Last Admin: 12/06/18 22:11 Dose: 20 mg Physical Exam - Constitutional Appears: Chronically Ill - Head Exam Head Exam: ATRAUMATIC - Eye Exam Eye Exam: PERRL - Respiratory Exam Respiratory Exam: Clear to Auscultation Bilateral - Rectal Exam Rectal Exam: Deferred - Neurological Exam Neurological exam: Alert, Oriented x3 - Skin Skin Exam: Diaphoretic (bilateral hands), Pallor Results - Vital Signs Recent Vital Signs: Last Vital Signs Temp 98.2 F 12/07/18 08:42 Pulse 60 12/07/18 09:11 Resp 0 L 12/07/18 08:42 BP 149/62 12/07/18 09:11 Pulse Ox 98 12/07/18 08:42 - Labs Result Diagrams: 12/07/18 11:15 12/06/18 10:50 Labs: Laboratory Results - last 24 hr 12/06/18 12/06/18 12/07/18 16:35 21:36 05:20 WBC RBC Hgb Hct MCV MCH MCHC RDW Plt Count POC Glucose (mg/dL) 87 116 H 94 12/07/18 11:15 WBC 7.6 RBC 3.65 L Hgb 13.0 Hct 38.8 MCV 106.4 H D MCH 35.6 H MCHC 33.4 RDW 12.8 Plt Count 333 POC Glucose (mg/dL) Assessment & Plan - Assessment and Plan (Free Text) Assessment: NEUROLOGICAL ASSESSMENT General: awake, sitting up in bed Mental Status: alert and oriented to person,place and time, follows commands, regards on both sides Speech no dysarthria, speech fluent Cranial Nerves: PERRL, EOMI, no facial asymmetry, tongue midline MOtor: 5/5 left upper and lower extremity, 2/5 right upper 4/5 right lower extremity Sensory: intact bilaterally Coordination: [id number] no dysmetria left unable to test on right Gait: deferred 88 year old male patient with PmHx as above with an old CVA residual weakness via right side. CT head/neck complete occlusion of the right internal carotid artery from its origin. Unsure if pt had fallen from dizziness or weakness, he is Day1 post-op PPM for Atrial fibrillation with slow ventricular response. Plan: 1-Neuro checks per unit protocal 2-Notify if any change in neuro assessment 3-STAT head CT for any neurological change 4-goal blood pressure normotensive 5-continue OT/PT 6-May schedule a diagnostic cerebral angiogram/carotid stent 7-If I can be of further assistance please feel free to contact me. Level 3 consult 45 minutes spent for assessment and plan - Date & Time Date: 12/07/18 Time: 12:45
--- NOTE | 2018-12-07 14:28 | CP.PCM.PN ---
Subjective - Date & Time of Evaluation Date of Evaluation: 12/07/18 Time of Evaluation: 11:25 - Subjective Subjective: Neuro Follow-Up Note: Mr. Jose Fletcher was evaluated this morning in bed. He is POD#1 of PPM insertion. He denies any complaints today and states he feels well after his procedure. Denies h/a, dizziness, visual changes, chest pain, palpitations, sob, cough, abd pain, n/v/d. Objective - Vital Signs/Intake and Output Vital Signs (last 24 hours): Temp Pulse Resp BP Pulse Ox 98.8 F 61 20 136/57 L 98 12/07/18 13:00 12/07/18 13:00 12/07/18 13:00 12/07/18 13:00 12/07/18 13:00 - Medications Medications: Current Medications Aspirin (Ecotrin) 81 mg PO DAILY [facility] Last Admin: 12/04/18 11:41 Dose: 81 mg Dabigatran (Pradaxa) 150 mg PO Q12 [facility]; Protocol Last Admin: 12/04/18 11:42 Dose: 150 mg Ergocalciferol (Drisdol 50,000 Intl Units Cap) 1 cap PO MO [facility] Last Admin: 12/03/18 06:33 Dose: 1 cap Escitalopram Oxalate (Lexapro) 10 mg PO HS [facility] Last Admin: 12/06/18 22:11 Dose: 10 mg Ceftriaxone Sodium 1 gm/ (Sodium Chloride) 100 mls @ 100 mls/hr IVPB DAILY [facility]; Protocol Last Admin: 12/07/18 09:14 Dose: 100 mls/hr Insulin Human Lispro (Humalog) 0 units SC Q6 [facility]; Protocol Last Admin: 12/07/18 11:30 Dose: Not Given Lidocaine (Lidoderm) 1 ea TD DAILY [facility] Last Admin: 12/07/18 09:12 Dose: 1 ea Losartan Potassium (Cozaar) 100 mg PO DAILY [facility] Last Admin: 12/07/18 09:11 Dose: 100 mg Magnesium Hydroxide (Milk Of Magnesia) 30 ml PO Q4 PRN PRN Reason: Constipation Pravastatin Sodium (Pravachol) 20 mg PO HS [facility] Last Admin: 12/06/18 22:11 Dose: 20 mg - Labs Labs: 12/07/18 11:15 12/06/18 10:50 PT 13.6 Seconds (9.8-13.1) H 01/31/19 08:40 INR 1.2 12/06/18 08:40 APTT 49.1 Seconds (25.6-37.1) H 12/06/18 08:40 - Constitutional Appears: Well, Non-toxic, No Acute Distress - Head Exam Head Exam: ATRAUMATIC, NORMAL INSPECTION, NORMOCEPHALIC - Eye Exam Eye Exam: EOMI, Normal appearance Pupil Exam: NORMAL ACCOMODATION, PERRL - ENT Exam ENT Exam: Mucous Membranes Moist - Neck Exam Neck Exam: Full ROM, Normal Inspection - Respiratory Exam Respiratory Exam: NORMAL BREATHING PATTERN - Cardiovascular Exam Additional comments: PPM noted to upper L ACW - Extremities Exam Extremities Exam: absent: Calf Tenderness, Full ROM, Pedal Edema Additional comments: RUE weakness noted residual from old CVA; other extremities FROM and no motor deficits. - Back Exam Back Exam: Full ROM - Neurological Exam Neurological Exam: Alert, Awake, CN II-XII Intact, Reflexes Normal Neuro motor strength exam: Left Upper Extremity: 5, Right Upper Extremity: 2/1, Left Lower Extremity: 5, Right Lower Extremity: 5 Additional comments: Awake, alert, follows all commands. Speech clear, fluid RUE weakness noted residual from old CVA; other extremities FROM and no motor deficits. No sensory deficits No ataxia, no dysmetria to left Gait not assessed - Psychiatric Exam Psychiatric exam: Normal Affect, Normal Mood - Skin Skin Exam: Normal Color Assessment and Plan (1) Right carotid artery occlusion Assessment & Plan: -Imaging that has been completed reviewed. -Echo done shows EF 55-60%, no LV thrombus. -CTA Head and Neck (12/03/18) shows complete occlusion of the Right ICA. -Repeat CT Head (12/03/18) shows no acute intracranial changes. -Neuro IR consulted for the Right ICA complete occlusion---will see today. -Continue Statin. -Pradaxa and ASA were on hold for PPM insertion yesterday---may restart on 12/08/18, per oncology rep recommendations. -Continue PT/OT as tolerated -Notify neuro team of any acute changes in condition. Case discussed with Dr. Lim Status: Acute
--- NOTE | 2018-12-07 21:03 | PN ---
DATE: 12/07/2018 SUBJECTIVE: The patient denies any dizziness or chest pain. He is currently in paced ventricular rhythm on a monitor. No reported leaking from the surgical site. PHYSICAL EXAMINATION: VITAL SIGNS: Blood pressure 139/61, heart rate 68, temperature 99.1, respirations 18. HEENT: Normocephalic. CHEST: Clear. HEART: S1, S2. Regular. EXTREMITIES: No edema. LABORATORY DATA: Today's hemoglobin and hematocrit are 13 and 38.8. White count and platelet count are within normal limits. Today's blood sugar is 119 and 101. ASSESSMENT: 1. Status post a mechanical fall. 2. 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 3. Slow atrial fibrillation requiring permanent ventricular pacemaker placement. 4. Total occlusion of the right internal carotid artery. RECOMMENDATIONS: Continue current IV Rocephin at 1 g daily, Cozaar 100 mg once a day, aspirin 81 mg once a day. Pradaxa will be started tomorrow at 150 mg once a day. Continue pravastatin 20 mg once a day. Chance Knight MD
[2018-12-07] MEDS: Pravastatin Sodium 20 MG TAB PO SCH (21:16)
[2018-12-08] MEDS: Insulin Lispro (humaLOG) 100 Units/ml Inj SC SCH ×5 (04:00→22:02)
[2018-12-08] MEDS: Lidocaine 5% Patch TD SCH (09:00)
--- NOTE | 2018-12-08 14:05 | PN ---
DATE: 12/07/2018 SUBJECTIVE: The patient was seen on 12/07/2018. He was not in any cardiopulmonary distress, postoperative day #1 after pacemaker placement. PHYSICAL EXAMINATION: VITAL SIGNS: Blood pressure 136/57, temperature 98.8, respiratory rate 20 and pulse 61. HEENT: Pupils equal, reactive to light. Normal-appearing mucosa of the conjunctivae, oropharynx and nasal membrane mucosa. NECK: Supple. No JVD. No carotid bruit. No lymph node. No thyromegaly. CHEST AND LUNGS: Bilateral symmetrical expansion. Good air exchange. No rales. No rhonchi. CARDIOVASCULAR SYSTEM: PMI not localized. S1, S2. No additional sounds. ABDOMEN: Normoactive bowel sounds. No tenderness. No organomegaly. No masses. EXTREMITIES: No cyanosis. No clubbing. No edema. [employer]: Alert, awake, oriented x2 and the patient has right-sided hemiparesis. ASSESSMENT: 1. Atrial fibrillation with slow ventricular rate, status post pacemaker placement. 2. Cerebrovascular accident with right hemiplegia which is old fall with unclear etiology. 3. Right internal carotid artery occlusion. 4. Hypertension. PLAN Continue current medications. Follow interventional neurologist's recommendations. Adjust medications as needed for rate as well as for blood pressure. Itzel Hernández MD
--- NOTE | 2018-12-08 17:51 | PN ---
DATE: 12/08/2018 SUBJECTIVE: The patient denies any dizziness. He is in distress. PHYSICAL EXAMINATION: VITAL SIGNS: Blood pressure 123/63, heart rate 60, temperature 98.1, respirations 18. HEENT: Normocephalic. CHEST: Clear. HEART: S1 and S2, regular. EXTREMITIES: No edema. LABORATORY DATA: His blood sugars are 85, 83, and 97 respectively. ASSESSMENT: 1. Chronic atrial fibrillation. 2. History of cerebrovascular accident with residual right hemiplegia. 3. Totally occluded ostium of the right internal carotid artery. 4. Status post ventricular pacemaker placement for significant bradycardia. RECOMMENDATIONS: Continue Cozaar 100 mg once a day, aspirin 81 mg once a day. Resume Pradaxa at 250 mg twice a day. Continue Pravachol 20 mg once a day. Chance Knight MD
[2018-12-08] MEDS: Pravastatin Sodium 20 MG TAB PO SCH (22:01)
[2018-12-09] MEDS: Insulin Lispro (humaLOG) 100 Units/ml Inj SC SCH ×4 (04:32→22:00)
[2018-12-09] MEDS: Lidocaine 5% Patch TD SCH (09:02)
--- NOTE | 2018-12-09 17:51 | PN ---
DATE: 12/09/2018 SUBJECTIVE: The patient denies any dizziness, palpitations, or chest pain. He is currently at a ventricular paced rhythm at the rate of 60. No reported bleeding from surgical site. PHYSICAL EXAMINATION: VITAL SIGNS: Blood pressure 135/66, heart rate 60, temperature 98, and respirations 18. HEENT: Normocephalic. CHEST: Clear. HEART: S1 and S2, regular. EXTREMITIES: No edema. LABORATORY DATA: Today's blood sugars are 90 and 93 respectively. ASSESSMENT: 1. Recurrent atrial fibrillation. 2. Status post ventricular pacemaker placement for slow atrial fibrillation in the lower 30s. 3. History of cerebrovascular accident with residual right hemiplegia. 4. 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 RECOMMENDATIONS: Continue Cozaar at 100 mg once a day, resume Pradaxa at 150 mg once a day, and aspirin at 81 mg once a day. Chance Knight MD
[2018-12-09] MEDS: Pravastatin Sodium 20 MG TAB PO SCH (21:15)
--- NOTE | 2018-12-09 23:54 | PN ---
DATE: 12/09/2018 SUBJECTIVE: The patient was seen today, 12/09/2018. He is not in any cardiopulmonary distress. PHYSICAL EXAMINATION: VITAL SIGNS: Blood pressure is 119/62, temperature 98.4, respiratory rate 17, and pulse is 60. HEENT: Pupils equal, reactive to light. Normal-appearing mucosa of the conjunctivae, oropharyngeal, and nasal membrane mucosa. NECK: Supple. No JVD. No carotid bruit. No lymph node. No thyromegaly. CHEST AND LUNGS: Bilateral symmetrical expansion. Good air exchange. No rales, no rhonchi. CARDIOVASCULAR SYSTEM: PMI not localized. S1, S2. Regularly irregular. ABDOMEN: Normoactive bowel sounds. No tenderness. No organomegaly. No masses. EXTREMITIES: No cyanosis, no clubbing, no edema. CENTRAL NERVOUS SYSTEM: Alert, awake, oriented x2. Right-sided hemiplegia. ASSESSMENT: 1. Status post fall. 2. Atrial fibrillation with slow ventricular rate, status post pacemaker placement. 3. Right internal carotid artery occlusion. PLAN: Follow recommendations of Interventional Neurology. Continue physical therapy and current medications. [facility] MD Edgar
[2018-12-10] MEDS: Insulin Lispro (humaLOG) 100 Units/ml Inj SC SCH ×3 (05:38→17:30)
[2018-12-10] MEDS: Ergocalciferol 50,000 Intl Units Cap PO SCH (05:56)
[2018-12-10] MEDS: Lidocaine 5% Patch TD SCH (08:03)
--- NOTE | 2018-12-10 11:38 | CP.PCM.PCO ---
Assessment & Plan - Assessment and Plan (Free Text) Assessment: pt. seen and examined this morning denies any c/o PPM site c/d I; Tele in paced rythm rate 60 case d/w and no plan for further intervention at this time pt. cleared for discharge and f/u with neurology by pt. accepted at [facility] per SW, d/c today to [facility] under Above d/w
--- NOTE | 2018-12-10 19:45 | PN ---
DATE: 12/10/2018 SUBJECTIVE: The patient denies any palpitation or dizziness. The patient is in paced ventricular rhythm on a monitor. PHYSICAL EXAMINATION: VITAL SIGNS: Blood pressure 134/61, heart rate 56, temperature 98.4, and respirations 20. HEENT: Normocephalic. CHEST: Clear. HEART: S1 and S2, regular. ABDOMEN: Soft. EXTREMITIES: No edema. LABORATORY DATA: Today's blood sugars are 86 and 118 respectively. ASSESSMENT: 1. Chronic atrial fibrillation with slow ventricular response, status post single lead ventricular pacemaker placement. 2. History of cerebrovascular accident with residual right hemiplegia. 3. 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 4. Diabetes mellitus. RECOMMENDATIONS: Continue IV Rocephin at 1 g daily. Continue Cozaar at 100 mg once a day, aspirin 81 mg once a day, Pravachol 20 mg once a day, Pradaxa mg once a day. The patient can be discharged from the cardiac point on aspirin and Pradaxa. Chance Knight MD
[2018-12-10] MEDS: Pravastatin Sodium 20 MG TAB PO SCH (21:07)
[2018-12-11] MEDS: Insulin Lispro (humaLOG) 100 Units/ml Inj SC SCH ×2 (04:30→11:08)
[2018-12-11 05:01] VITALS: RESP 18
[2018-12-11] MEDS: Ergocalciferol 50,000 Intl Units Cap PO SCH (06:03)
[2018-12-11 07:57] VITALS: TEMP 98.1; O2SAT 98
[2018-12-11] MEDS: Lidocaine 5% Patch TD SCH (10:22)
[2018-12-11 10:25] VITALS: BP 147/69; PULSE 88
--- NOTE | 2018-12-11 14:17 | PN ---
DATE: 12/11/2018 SUBJECTIVE: The patient denies any dizziness or palpitation. PHYSICAL EXAMINATION: VITAL SIGNS: Blood pressure 147/69, heart rate 88, temperature 98.1, and respirations 18. HEENT: Normocephalic. CHEST: Clear. HEART: S1 and S2 regular. EXTREMITIES: No edema. LABORATORY DATA: Today's blood sugar is 81. ASSESSMENT: 1. Chronic atrial fibrillation. 2. Status post permanent ventricular pacemaker placement for significant bradycardia. 3. Status post fall. 4. Obsessive-compulsive disorder with residual right hemiplegia. 5. Totally occluded right internal carotid artery at its ostium. RECOMMENDATIONS: Continue current Cozaar at 100 mg once a day, aspirin 81 mg once a day, Lexapro at 10 mg at bedtime, Pradaxa 250 once a day, and Pravachol at 20 mg once a day. The patient can be transferred to subacute rehab from the cardiac point of view. Chance Knight MD
--- NOTE | 2018-12-12 05:21 | DS ---
The patient is seen today. REASON FOR ADMISSION: An 88-year-old male with history of multiple medical problems, was admitted after a fall and found to have atrial fibrillation with slow ventricular rate. COURSE OF HOSPITALIZATION: The patient was evaluated by Cardiology and Electrophysiology, and the patient had a pacemaker placed. The patient also was found to have right internal carotid artery occlusion, and he had interventional neurology consultation, and decision was conservative treatment. Currently, the patient is taking anticoagulant and antiplatelets. The patient was discharged to subacute rehabilitation at [place] to continue current medication and for physical therapy and deconditioning. [facility] MD
== END 2018-12-11 12:09 | DRG 243 ==
LOC: H.ER 16:58 → H.ERHOLD 21:36 → H.ICU/CCU 11-29 11:38 → OBSVTOIN 11-29 11:54 → H.TEL 11-30 23:36
PROVIDERS: ADMIT Internal Medicine; ATTEND Internal Medicine
PROC: 02HK3JZ Insertion of Pacemaker Lead into Right Ventricle, Percutaneous Approach (ICD-10-PCS; 2018-12-06)
PROC: 0JH604Z Insertion of Pacemaker, Single Chamber into Chest Subcutaneous Tissue and Fascia, Open Approach (ICD-10-PCS; principal; 2018-12-06 10:00)
DX: I48.2 Chronic atrial fibrillation (principal); I69.351 Hemiplegia and hemiparesis following cerebral infarction affecting right dominant side; S09.90XA Unspecified injury of head, initial encounter; W06.XXXA Fall from bed, initial encounter; Y92.9 Unspecified place or not applicable; Z79.02 Long term (current) use of antithrombotics/antiplatelets; Z79.82 Long term (current) use of aspirin; Z95.0 Presence of cardiac pacemaker; L40.9 Psoriasis, unspecified; M19.90 Unspecified osteoarthritis, unspecified site; R60.0 Localized edema; S80.02XA Contusion of left knee, initial encounter; Z79.899 Other long term (current) drug therapy; M25.562 Pain in left knee; R00.1 Bradycardia, unspecified; R26.81 Unsteadiness on feet; E11.9 Type 2 diabetes mellitus without complications; E78.00 Pure hypercholesterolemia, unspecified; E78.5 Hyperlipidemia, unspecified; F42.9 Obsessive-compulsive disorder, unspecified; I10 Essential (primary) hypertension; I45.81 Long QT syndrome; I65.21 Occlusion and stenosis of right carotid artery

== ENCOUNTER 2019-01-28 09:46 | Inpatient (IN) | payer OTHER ==
--- NOTE | 2019-01-28 11:23 | ED PDOC ---
HPI: Trauma/Fall - HPI Time Seen by Provider: 01/28/19 10:07 Chief Complaint (Nursing): Back Pain Chief Complaint (Provider): Frequent falls History Per: Patient, Communications And Signals Supervisor ([id number]) History/Exam Limitations: no limitations Additional Complaint(s): 88yo male with history of CVA and residual right sided weakness, sent to ER by PMD for evaluation due to frequent falls. Patient states his last fall was 3 days ago off the couch; he denies any head injury or loss of consciousness at that time. Patient states he is ambulatory and lives alone; currently complaining of pain to right arm and lower back. Patient denies any chest pain or shortness of breath. PMD: Dr. Hernández Past Medical History Reviewed: Historical Data, Nursing Documentation, Vital Signs Vital Signs: Last Vital Signs Temp 97.8 F 01/28/19 09:51 Pulse 65 01/28/19 09:51 Resp 17 01/28/19 09:51 BP 133/57 L 01/28/19 09:51 Pulse Ox 100 01/28/19 09:51 - Medical History PMH: Atrial Fibrillation, Cardia Arrhythmia (A-FIB), CVA (R arm weakness), Fractures, HTN, Hypercholesterolemia, Peripheral Edema Denies: Alzheimer's Disease, Anemia, Anxiety, Arthritis, Asthma, Bipolar Disorder, Bronchitis, CAD, CHF, COPD, Crohn's Disease, Dementia, Depression, Diverticulitis, Emphysema, Gastritis, Gall Bladder Disease, HIV, Hyperthyroidism, Hypothyroidism, Kidney Stones, Migraine, Multiple Sclerosis, Osteoporosis, Pancreatitis, Paranoia, Parkinson's Disease, Pneumonia, Post Traumatic Stress Disorder, Pulmonary Embolism, Chronic Kidney Disease, Rheumatoid Arthritis, Schizophrenia, Seizures, Sexually Transmitted Disease, Sleep Apnea, TIA - Surgical History Surgical History: No Surg Hx - Family History Family History: States: No Known Family Hx - Immunization History Hx Tetanus Toxoid Vaccination: No Hx Influenza Vaccination: No Hx Pneumococcal Vaccination: No - Home Medications Home Medications: Ambulatory Orders Medication Instructions Recorded Aspirin [Ecotrin] 81 mg PO DAILY 07/30/18 Ergocalciferol (Vitamin D2) 50,000 unit PO MO 07/30/18 [Vitamin D2] Losartan [Cozaar] 100 mg PO DAILY 07/30/18 Pravastatin Sodium [Pravachol] 20 mg PO HS 07/30/18 amLODIPine [Norvasc] 5 mg PO Q12 07/30/18 Escitalopram [Lexapro] 10 mg PO HS tab 08/06/18 Dabigatran [Pradaxa] 75 mg PO Q12 01/28/19 Pantoprazole Sodium [Protonix] 40 mg PO DAILY 01/28/19 Tamsulosin [Flomax] 0.4 mg PO DAILY 01/28/19 - Allergies Allergies/Adverse Reactions: Allergies Allergy/AdvReac Type Severity Reaction Status Date / Time No Known Allergies Allergy Unverified 11/28/18 17:19 Review of Systems ROS Statement: Except As Marked, All Systems Reviewed And Found Negative Cardiovascular: Negative for: Chest Pain Respiratory: Negative for: Shortness of Breath Musculoskeletal: Positive for: Arm Pain (right), Back Pain Neurological: Negative for: Weakness, Numbness Physical Exam - Reviewed Nursing Documentation Reviewed: Yes Vital Signs Reviewed: Yes - Physical Exam Appears: Positive for: Non-toxic, No Acute Distress Head Exam: Positive for: ATRAUMATIC, NORMAL INSPECTION, NORMOCEPHALIC Skin: Positive for: Warm, Dry Eye Exam: Positive for: EOMI, PERRL Neck: Positive for: Supple Cardiovascular/Chest: Positive for: Regular Rate, Rhythm. Negative for: Tachycardia Respiratory: Positive for: Normal Breath Sounds. Negative for: Respiratory Distress Pulses-Radial (L): 2+ Pulses-Radial (R): 2+ Back: Positive for: Other (bilateral paralumbar tenderness). Negative for: Vertebral Tenderness Extremity: Positive for: Normal ROM (FROM at left elbow), Other (6cm abrasion noted to left posterior forearm; mild surrounding erythema, no discharge noted.). Negative for: Deformity, Swelling Neurological/Psych: Positive for: Awake, Alert, Normal Tone, Oriented (x 3). Negative for: Motor/Sensory Deficits - Laboratory Results Result Diagrams: 01/28/19 14:00 01/28/19 14:00 - ECG O2 Sat by Pulse Oximetry: 100 (RA) Pulse Ox Interpretation: Normal Medical Decision Making Medical Decision Makinyo male sent for evaluation due to frequent falls; hx of CVA and right sided weakness Plan: -- XR lumbar spine -- XR Right forearm -- XR Right elbow 1120 XR Right elbow IMPRESSION: Unremarkable radiographs of the right elbow. XR Right forearm IMPRESSION: Unremarkable radiographs of the right forearm. XR Lumbar spine IMPRESSION: Unremarkable radiographs of the lumbar spine. CXR IMPRESSION: No active disease. CT Head IMPRESSION: No evidence of acute infarct. No intracranial mass or hemorrhage. Old left frontal infarct. While area in degeneration seen in the left salty. Chronic wh ite matter ischemic change. Nonspecific chronic right mastoid effusion. 1208 CT head and CXR ordered Labs and UA ordered 1247 Patient to be admitted under Dr. Hernández due to frequent falls Discussed with Dr. Hernández, who accepts patient. Scribe Attestation: Documented by Krystal Garza, acting as a scribe for Candace De Oliveira MD. Provider Scribe Attestation: All medical record entries made by the Scribe were at my direction and personally dictated by me. I have reviewed the chart and agree that the record accurately reflects my personal performance of the history, physical exam, medical decision making, and the department course for this patient. I have also personally directed, reviewed, and agree with the discharge instructions and disposition. Disposition - Clinical Impression Clinical Impression: Frequent falls, Arm contusion - Patient ED Disposition Is Patient to be Admitted: Yes - Disposition Disposition Time: 12:47 Condition: STABLE - POA Present On Arrival: Falls Or Trauma
--- NOTE | 2019-01-28 13:05 | RAD ---
Date of service: 01/28/2019 HISTORY: Frequent falls COMPARISON: 12/06/2018 TECHNIQUE: 1 view obtained. FINDINGS: LUNGS: No active pulmonary disease. PLEURA: No significant pleural effusion identified, no pneumothorax apparent. CARDIOVASCULAR: No aortic atherosclerotic calcification present. Normal cardiac size. No congestive change. Permanent pacemaker. OSSEOUS STRUCTURES: No significant abnormalities. VISUALIZED UPPER ABDOMEN: Normal. OTHER FINDINGS: None. IMPRESSION: No active disease.
--- NOTE | 2019-01-28 14:04 | RAD ---
Date of service: 01/28/2019 PROCEDURE: Radiographs of the right elbow. HISTORY: Fall COMPARISON: No prior. TECHNIQUE: 3 views obtained. FINDINGS: BONES: Normal. No fracture. JOINTS: Normal. No osteoarthritis. SOFT TISSUES: Normal. JOINT EFFUSION: None. OTHER FINDINGS: None. IMPRESSION: Unremarkable radiographs of the right elbow.
--- NOTE | 2019-01-28 14:04 | RAD ---
Date of service: 01/28/2019 PROCEDURE: Radiographs of the Lumbar Spine. HISTORY: Pain, s/p fall COMPARISON: No prior. FINDINGS: BONES: Normal alignment. No listhesis. No fracture. DISC SPACES: Unremarkable. OTHER FINDINGS: None. IMPRESSION: Unremarkable radiographs of the lumbar spine.
--- NOTE | 2019-01-28 14:04 | RAD ---
PROCEDURE: Radiographs of the Right Forearm HISTORY: Fall COMPARISON: None available. TECHNIQUE: Frontal and lateral views obtained. 2 views obtained. FINDINGS: BONES: No fracture or destructive lesion. JOINT SPACES: Unremarkable. OTHER FINDINGS: None. IMPRESSION: Unremarkable radiographs of the right forearm.
--- NOTE | 2019-01-28 14:05 | CT ---
Date of service: 01/28/2019 PROCEDURE: CT HEAD WITHOUT CONTRAST. HISTORY: Frequent falls COMPARISON: 12/03/2018 TECHNIQUE: Axial computed tomography images were obtained through the head/brain without intravenous contrast. Radiation dose: Total exam DLP = 998.18 mGy-cm. This CT exam was performed using one or more of the following dose reduction techniques: Automated exposure control, adjustment of the mA and/or kV according to patient size, and/or use of iterative reconstruction technique. FINDINGS: HEMORRHAGE: No intracranial hemorrhage. BRAIN: No mass effect or edema. Old left frontal infarct. No evidence of acute infarct. There is a large region of CSF attenuation in the left salty consistent with wallerian degeneration. This is unchanged compared to several prior examinations. There mild to moderate periventricular white matter lucency consistent with microvascular white matter ischemic change. VENTRICLES: Unremarkable. No hydrocephalus. CALVARIUM: Unremarkable. PARANASAL SINUSES: Unremarkable as visualized. No significant inflammatory changes. MASTOID AIR CELLS: There is a nonspecific right mastoid effusion. This is unchanged compared to the prior CT examination of 12/03/2018. There is no coalescence of the air cells to suggest an acute infectious process. OTHER FINDINGS: None. IMPRESSION: No evidence of acute infarct. No intracranial mass or hemorrhage. Old left frontal infarct. While area in degeneration seen in the left salty. Chronic white matter ischemic change. Nonspecific chronic right mastoid effusion.
[2019-01-28 14:14] LABS: BASO % 0.3 % (0.0-2.0); EOS # 0.4 K/uL (0.0-0.7); EOS % 6.2 % (0.0-4.0); HEMOGLOBIN 12.6 g/dL (12.0-18.0); LYMPH # 1.7 K/uL (1.0-4.3); LYMPH % 23.6 % (20.0-40.0); MEAN CORPUSCULAR HEMOGLOBIN 35.2 pg (27.0-31.0); MEAN CORPUSCULAR HGB CONC 33.9 g/dL (33.0-37.0); MEAN PLATELET VOLUME 6.5 fl (7.2-11.7); MONO # 0.8 K/uL (0.0-0.8); MONO % 10.7 % (0.0-10.0); NEUT # 4.2 K/uL (1.8-7.0); NEUT % 59.2 % (50.0-75.0); NRBC % 0.1 % (0.0-0.0); RBC 3.58 Mil/uL (4.40-5.90); RED CELL DISTRIBUTION WIDTH 13.3 % (11.5-14.5); WHITE BLOOD COUNT 7.1 K/uL (4.8-10.8)
[2019-01-28 14:16] LABS: ALT/SGPT 23 U/L (21-72); AST/SGOT 31 U/L (17-59); BLOOD UREA NITROGEN 18 mg/dl (9-20); CALCIUM 9.3 mg/dL (8.4-10.2); GFR NON-AFRICAN AMERICAN > 60
[2019-01-28 14:17] LABS: INR 1.4; PROTHROMBIN TIME 16.3 Seconds (9.8-13.1)
[2019-01-28 14:20] LABS: PARTIAL THROMBOPLASTIN TIME 81.8 Seconds (25.6-37.1)
[2019-01-28 14:22] LABS: URINE BILIRUBIN NEGATIVE (NEGATIVE); URINE BLOOD SMALL (NEGATIVE); URINE CLARITY SLIGHTY-CLOUDY (Clear); URINE COLOR YELLOW (YELLOW); URINE GLUCOSE (UA) NEG (NEGATIVE); URINE LEUKOCYTE ESTERASE MOD Leu/uL (Negative); URINE PROTEIN 30 mg/dL (NEGATIVE); URINE UROBILINOGEN 0.2-1.0 mg/dL (0.2-1.0)
--- NOTE | 2019-01-28 17:20 | CARD ---
APPROVED REPORT Date of service: 01/28/2019 EKG Measurement Heart [id number] <Conclusion> Ventricular-paced rhythm underlying NSR.
[2019-01-28 17:38] LABS: INR 1.3; PROTHROMBIN TIME 14.8 Seconds (9.8-13.1)
[2019-01-28 17:41] LABS: PARTIAL THROMBOPLASTIN TIME 81.7 Seconds (25.6-37.1)
[2019-01-28] MEDS ORDERED: Ergocalciferol 50,000 Intl Units Cap PO SCH (20:00)
[2019-01-28 20:19] VITALS: BMI 25.3
[2019-01-28] MEDS: Pravastatin Sodium 20 MG TAB PO SCH (22:23)
--- NOTE | 2019-01-29 03:05 | HP ---
HISTORY OF PRESENT ILLNESS: This is an 88-year-old male who is known to me with history of multiple medical problems including chronic atrial fibrillation and status post CVA with right-sided hemiplegia. The patient lives by himself at home and he has been suffering of frequent falls. The patient also has been on Pradaxa and he had hematuria for which Pradaxa was decreased to 75 mg twice a day. The patient was brought by caregiver today to emergency room because of frequent falls and generalized debilitation. The patient was evaluated in the emergency room and admitted for further management. Other review of systems is negative. ALLERGIES: NO KNOWN ALLERGY. MEDICATIONS: Reviewed as per MAR and ordered. SOCIAL HISTORY: No history of smoking, EtOH or substance abuse. FAMILY HISTORY: Noncontributory. PAST MEDICAL HISTORY: Chronic atrial fibrillation, hypertension, hypercholesterolemia, CVA with right-sided hemiparesis. PHYSICAL EXAMINATION: GENERAL: The patient is in bed, not in any cardiopulmonary distress. VITAL SIGNS: At the time of this examination, his blood pressure 124/67, temperature 97.7, respiratory rate 20 and pulse 61. HEENT: Pupils equal and reactive to light. Normal-appearing mucosa of the conjunctivae, oropharynx and nasal membrane mucosa. NECK: Supple. No JVD. No carotid bruit. No lymph node. No thyromegaly. CHEST AND LUNGS: Bilateral symmetrical expansion. Good air exchange. No rales, no rhonchi. CARDIOVASCULAR SYSTEM: PMI not localized. S1, S2. No additional sounds. ABDOMEN: Normoactive bowel sounds. No tenderness. No organomegaly. No masses. EXTREMITIES: No cyanosis, clubbing, no edema. CARE MANAGEMENT ASSOCIATE: Alert, awake, oriented x1 and the patient has right-sided hemiparesis. Positive hypertonia and increased deep tendon reflex on the right side. ASSESSMENT: 1. 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 2. Chronic atrial fibrillation. 3. Frequent falls. 4. Hypertension. 5. Hypercholesterolemia. PLAN: Follow the CT scan of the head that was done. Neuro check every 4 hours. Resume the patient's home medications. Start physical therapy. Itzel Hernández MD [facility] # [id number]
[2019-01-29] MEDS: Pantoprazole 40 mg EC Tab PO SCH (09:10)
[2019-01-29] MEDS: Ciprofloxacin 400mg/200ml D5W 400 MG/200 ML BAG IVPB SCH ×2 (14:21→21:18)
[2019-01-29] MEDS: Pravastatin Sodium 20 MG TAB PO SCH (21:18)
[2019-01-29] MEDS: Saccharomyces Boulardi 250 mg Cap PO SCH (21:19)
--- NOTE | 2019-01-30 00:23 | PN ---
DATE: 01/29/2019 SUBJECTIVE: The patient is seen today on 01/29/2019. He was started on physical therapy, and the patient has very unsteady gait. OBJECTIVE: VITAL SIGNS: The patient has blood pressure 117/60, temperature 98.1, respiratory rate 20, and pulse 64. HEENT: Pupils equal and reactive to light. Normal-appearing mucosa of the conjunctivae, oropharynx, and nasal membrane mucosa. NECK: Supple. No JVD. No carotid bruit. No lymph node. No thyromegaly. CHEST AND LUNGS: Bilateral symmetrical expansion. Good air exchange. No rales, no rhonchi. CARDIOVASCULAR SYSTEM: PMI not localized. S1, S2. No additional sounds. ABDOMEN: Normoactive bowel sounds. No tenderness. No organomegaly. No masses. EXTREMITIES: No cyanosis, no clubbing, no edema. CENTRAL NERVOUS SYSTEM: Alert, awake, oriented x1, and the patient has right-sided hemiparesis. ASSESSMENT: 1. Urinary tract infection. 2. Hypertension. 3. Cerebrovascular accident with right-sided weakness. 4. Chronic atrial fibrillation. 5. Frequent falls. PLAN: Continue the IV Cipro 400 mg every 12 hours and physical therapy. Evaluate for subacute rehabilitation. Itzel Hernández MD
[2019-01-30 08:19] VITALS: TEMP 97.6
[2019-01-30] MEDS: Ciprofloxacin 400mg/200ml D5W 400 MG/200 ML BAG IVPB SCH ×2 (09:43→21:20)
[2019-01-30] MEDS: Saccharomyces Boulardi 250 mg Cap PO SCH ×2 (09:49→16:06)
[2019-01-30] MEDS: Pantoprazole 40 mg EC Tab PO SCH (09:49)
[2019-01-30] MEDS: Pravastatin Sodium 20 MG TAB PO SCH (21:21)
--- NOTE | 2019-01-30 23:16 | PN ---
DATE: 01/30/2019 DAILY PROGRESS NOTE SUBJECTIVE: The patient is seen today, 01/30/2019. He is started on physical therapy but has unsteady gait and high risk of fall. PHYSICAL EXAMINATION: VITAL SIGNS: Blood pressure 97/57, temperature 97.6, respiratory rate 20, and pulse 59. HEENT: Pupils equal and reactive to light. Normal-appearing mucosa of the conjunctivae, oropharynx and nasal membrane mucosa. NECK: Supple. No JVD. No carotid bruit. No lymph node. No thyromegaly. CHEST AND LUNGS: Bilateral symmetrical expansion. Good air exchange. No rales. No rhonchi. CARDIOVASCULAR SYSTEM: PMI not localized. S1 and S2. No additional sounds. ABDOMEN: Normoactive bowel sounds. No tenderness. No organomegaly. No masses. EXTREMITIES: No cyanosis, no clubbing, no edema. CENTRAL NERVOUS SYSTEM: Alert, awake, oriented x2. Right-sided hemiparesis. ASSESSMENT: Frequent falls, cerebrovascular accident with right-sided hemiparesis, left hydrocele, chronic atrial fibrillation, hypertension, urinary tract infection. PLAN: Continue current antibiotics and probiotics. We will hold antihypertensive medications as the patient's blood pressure is rather low. Itzel Hernández MD
[2019-01-31 06:11] LABS: HEMOGLOBIN 11.7 g/dL (12.0-18.0); MEAN CELL VOLUME 103.1 fl (80.0-94.0); MEAN CORPUSCULAR HEMOGLOBIN 34.4 pg (27.0-31.0); MEAN CORPUSCULAR HGB CONC 33.4 g/dL (33.0-37.0); RBC 3.39 Mil/uL (4.40-5.90); RED CELL DISTRIBUTION WIDTH 13.2 % (11.5-14.5); WHITE BLOOD COUNT 6.9 K/uL (4.8-10.8)
[2019-01-31 06:20] LABS: CALCIUM 8.6 mg/dL (8.4-10.2)
[2019-01-31 08:46] VITALS: BP 108/52; PULSE 58; RESP 20; O2SAT 98
[2019-01-31] MEDS: Ciprofloxacin 400mg/200ml D5W 400 MG/200 ML BAG IVPB SCH (08:51)
[2019-01-31] MEDS: Saccharomyces Boulardi 250 mg Cap PO SCH (08:55)
[2019-01-31] MEDS: Pantoprazole 40 mg EC Tab PO SCH (08:56)
[2019-01-31] MEDS ORDERED: Sodium Chloride 0.9% 1,000 ML IV SCH (10:15)
--- NOTE | 2019-01-31 11:14 | CP.PCM.PCO ---
Physician Communication Note - Physician Communication Note Physician Communication Note: Pt requires IV antibiotics x 5 more days
--- NOTE | 2019-02-01 05:29 | DS ---
REASON FOR ADMISSION: This is an 88-year-old female with history of multiple medical problems including right-sided hemiparesis secondary to CVA, was admitted for frequent falls and also found to have symptomatic urinary tract infection. COURSE OF HOSPITALIZATION: The patient was admitted to medical floor. He was started on IV antibiotics and neuro check. There was no new neurological deficit, but the patient has decline in his motor function recently with frequent falls. The patient has been on Pradaxa for chronic atrial fibrillation and that was recently decreased because of edema. The patient was started on both physical therapy and his home medications, and he was discharged to subacute rehabilitation for deconditioning and gait training, transportation training. FINAL DIAGNOSES: Frequent falls, cardiovascular accident with right-sided weakness, urinary tract infection, hypertension, chronic atrial fibrillation. Itzel Hernández MD
== END 2019-01-31 15:04 | DRG 605 ==
LOC: H.ER 09:46 → H.ERHOLD 12:47 → H.MEDSURG1 17:34
PROVIDERS: ADMIT Internal Medicine; ATTEND Internal Medicine
DX: S40.021A Contusion of right upper arm, initial encounter (principal); N39.0 Urinary tract infection, site not specified; I69.351 Hemiplegia and hemiparesis following cerebral infarction affecting right dominant side; M54.5 Low back pain; I49.9 Cardiac arrhythmia, unspecified; I10 Essential (primary) hypertension; E78.00 Pure hypercholesterolemia, unspecified; R60.9 Edema, unspecified; W19.XXXA Unspecified fall, initial encounter; I48.2 Chronic atrial fibrillation; R29.6 Repeated falls; Z79.82 Long term (current) use of aspirin; N43.3 Hydrocele, unspecified